=== PATIENT | female | born 1940 | race Caucasian/White ===

== ENCOUNTER → 2016-03-01 | Outpatient (CLI) | payer OTHER, MEDICARE ==
[~2016-03-01] MED LIST: ADVIN10/60 INH; CALC-20 PO; COEN1CAP37 PO; LACT1CAP6 PO; LZL125 PO; MULTTAB5 PO; ZCR80 PO; magnesium PO
--- NOTE | 2016-03-01 16:46 | DIAGNOSTIC IMAGING REPORT ---
CHEST 2 VIEWS ROUTINE HISTORY: R94.31 Abnormal electrocardiogram COMPARISON: Chest 05/26/2015. FINDINGS: A few linear densities at the left lung base favor scarring or subsegmental atelectasis. The lungs are otherwise clear. No pleural effusions. No pneumothorax. The heart is normal in size. IMPRESSION: No acute process. Electronically signed by: Frank Kamara M.D. 03/01/2016 4:44 PM Dictated Date/Time: 03/01/2016 4:42 PM
[2016-03-01 20:49] LABS: INFLUENZA B PCR Neg for Influ B (NEG)
[2016-03-01 21:03] LABS: INFLUENZA A PCR POS for Influ A (NEG)
== END | disposition home or self-care (01) ==
LOC: C.RAD1850 16:32
PROVIDERS: ATTEND Internal Medicine Pulmonary Disease
DX: R94.31 Abnormal electrocardiogram [ECG] [EKG] (principal)

== ENCOUNTER → 2016-03-29 | Outpatient (CLI) | payer OTHER, MEDICARE ==
--- NOTE | 2016-03-29 13:45 | MAMMOGRAPHY REPORT ---
BILATERAL DIGITAL SCREENING MAMMOGRAM TOMOSYNTHESIS WITH CAD: 03/29/2016 CLINICAL HISTORY: Routine screening. The patient reported to the technologist that she has had left breast pain for a year. TECHNIQUE: Breast tomosynthesis in addition to standard 2D mammography was performed. Current study was also evaluated with a Computer Aided Detection (CAD) system. COMPARISON: Comparison is made to exams dated: 03/23/2015 mammogram, 03/19/2014 mammogram, 12/16/2012 m ammogram, 11/22/2010 mammogram, 11/28/2011 mammogram, and 11/15/2009 mammogram - [facility]. BREAST COMPOSITION: There are scattered areas of fibroglandular density in both breasts. FINDINGS: No suspicious masses, calcifications, or areas of architectural distortion are noted in e ither breast. There has been no significant interval change compared to prior exams. Bilateral soheila gn appearing calcifications are not significantly changed. IMPRESSION: ACR BI-RADS CATEGORY 2: BENIGN There is no mammographic evidence of malignancy. A 1 year screening mammogram is recommended. Also recommend clinical follow-up for left breast pain. The patient will receive written notification of the results. Approximately 10% of breast cancers are not detected with mammography. A negative mammographic repor t should not delay biopsy if a clinically suggestive mass is present. Denise Aiken M.D. /:03/29/2016 12:36:58 Business Editor: Lupe Burns, [facility] letter sent: Normal 1/2 BI-RADS Code: ACR BI-RADS Category 2: Benign
== END | disposition home or self-care (01) ==
LOC: C.MAMM 09:32
PROVIDERS: ATTEND Obstetrics & Gynecology
DX: Z12.31 Encounter for screening mammogram for malignant neoplasm of breast (principal)

== ENCOUNTER → 2016-05-25 | Outpatient (CLI) | payer OTHER, MEDICARE ==
[2016-05-25 09:36] LABS: BASO % 1.1 %; BASO ABS # 0.04 K/uL (0-0.2); COMPLETE YES; EOS % 7.4 %; HEMATOCRIT 44.2 % (37-47); LYMPH % 35.5 %; MEAN CELL VOLUME 86.5 fL (80-100); MEAN CORPUSCULAR HEMOGLOBIN 28.8 pg (25-34); MEAN CORPUSCULAR HGB CONC 33.3 g/dl (32-36); MEAN PLATELET VOLUME 10.7 fL (7.4-10.4); MONO % 12.8 %; NEUT % 43.2 %; PLATELET COUNT 262 K/uL (130-400); RED BLOOD COUNT 5.11 M/uL (4.2-5.4); WHITE BLOOD COUNT 3.66 K/uL (4.8-10.8)
[2016-05-25 10:05] LABS: ALT/SGPT 27 U/L (12-78); AST/SGOT 24 U/L (15-37); BLOOD UREA NITROGEN 12 mg/dl (7-18); BUN/CREATININE RATIO 16.3 (10-20); CARBON DIOXIDE 33 mmol/L (21-32); CHLORIDE 105 mmol/L (98-107); CHOLESTEROL 165 mg/dl (0-200); CREATININE 0.73 mg/dl (0.60-1.20); GLUCOSE 87 mg/dl (70-99); SODIUM 142 mmol/L (136-145); TRIGLYCERIDES 88 mg/dl (0-150); VERY LOW DENSITY LIPOPROT CALC 18 mg/dl
[2016-05-25 10:12] LABS: URINE APPEARANCE CLOUDY (CLEAR); URINE BILIRUBIN NEG (NEG); URINE COLOR YELLOW; URINE EPITHELIAL CELL AUTO 20-30 /lpf (0-5); URINE NITRITE NEG (NEG); URINE SPECIFIC GRAVITY 1.016 (1.000-1.030); UROBILINOGEN NEG (NEG); ZZUR CULT IF INDIC CLEAN CATCH NO
[2016-05-25 10:15] LABS: CHOLESTEROL/HDL RATIO 3.3; HDL CHOLESTEROL 50 mg/dl; LDL CHOLESTEROL CALCULATED 97 mg/dl
[2016-05-25 10:25] LABS: MANUAL MICROSCOPIC REQUIRED? NO; REVIEW REQ? NO
[2016-05-25 10:26] LABS: CALCIUM 9.2 mg/dl (8.5-10.1)
[2016-05-25 10:57] LABS: ESTIMATED AVERAGE GLUCOSE 105 mg/dl; HA1C FLAG Normal (Normal)
--- NOTE | 2016-05-31 09:54 | CODING QUERY MEDICAL NECESSITY ---
CQSUPPORTING DIAGNOSIS NEEDED A supporting diagnosis is required for the test/procedure performed on this patient in order for us to be reimbursed by the patient's insurance. Please provide a supporting diagnosis for the following test/procedure listed below next to the test name along with your signature. *If there is no additional diagnosis for this patient that would support the following test/procedure please document that below next to the test/procedure. Test(s)/Procedure(s) that require a supporting diagnosis: DOS 05/25/16 VITAMIN D GLYCATED HEMOGLOBIN QUERY RETURNED WITH SIGNATURE BUT NO DIAGNOSIS-PLEASE SEND DIAGNOSIS AND SIGNATURE THANK YOU Provider Signature: Date: Thank you Jennifer [facility] Information Management Once completed, please kindly fax back to [phone] For questions please call [phone]
== END | disposition home or self-care (01) ==
LOC: C.LAB1850 07:30
PROVIDERS: ATTEND Internal Medicine
DX: E78.00 Pure hypercholesterolemia, unspecified (principal); E55.9 Vitamin D deficiency, unspecified; E74.39 Other disorders of intestinal carbohydrate absorption

== ENCOUNTER → 2016-06-20 | Outpatient (CLI) | payer OTHER, MEDICARE | END | disposition home or self-care (01) | LOC: C.PAPS 09:08 | PROVIDERS: ATTEND Obstetrics & Gynecology | DX: Z12.4 Encounter for screening for malignant neoplasm of cervix (principal) ==

== ENCOUNTER → 2016-09-14 | Outpatient (CLI) | payer OTHER, MEDICARE ==
[2016-09-14 15:40] LABS: URINE APPEARANCE CLOUDY (CLEAR); URINE BILIRUBIN NEG (NEG); URINE COLOR DK YELLOW; URINE NITRITE NEG (NEG); URINE PH 5.5 (4.5-7.5); URINE SPECIFIC GRAVITY 1.025 (1.000-1.030); UROBILINOGEN NEG (NEG)
[2016-09-14 15:46] LABS: MANUAL MICROSCOPIC REQUIRED? NO; REVIEW REQ? YES
== END | disposition home or self-care (01) ==
LOC: C.LAB 14:56
PROVIDERS: ATTEND Internal Medicine
DX: R39.9 Unspecified symptoms and signs involving the genitourinary system (principal)

== ENCOUNTER → 2016-09-18 | Outpatient (CLI) | payer OTHER, MEDICARE ==
[2016-09-18 16:43] LABS: URINE APPEARANCE CLEAR (CLEAR); URINE BILIRUBIN NEG (NEG); URINE COLOR YELLOW; URINE NITRITE NEG (NEG); URINE PH 6.5 (4.5-7.5); URINE SPECIFIC GRAVITY 1.017 (1.000-1.030); UROBILINOGEN NEG (NEG); ZZUR CULT IF INDIC CLEAN CATCH NO
[2016-09-18 16:49] LABS: MANUAL MICROSCOPIC REQUIRED? NO; REVIEW REQ? NO
== END | disposition home or self-care (01) ==
LOC: C.LAB 15:01
PROVIDERS: ATTEND Internal Medicine
DX: R32 Unspecified urinary incontinence (principal)

== ENCOUNTER → 2016-10-01 | Outpatient (CLI) | payer OTHER, MEDICARE ==
[2016-10-01 14:37] LABS: BASO % 0.7 %; BASO ABS # 0.04 K/uL (0-0.2); COMPLETE YES; EOS % 7.8 %; HEMATOCRIT 42.5 % (37-47); IG% 0.2 %; LYMPH % 30.9 %; LYMPH ABS # 1.83 K/uL (1.2-3.4); MEAN CELL VOLUME 85.9 fL (80-100); MEAN CORPUSCULAR HEMOGLOBIN 28.1 pg (25-34); MEAN CORPUSCULAR HGB CONC 32.7 g/dl (32-36); MEAN PLATELET VOLUME 9.9 fL (7.4-10.4); MONO % 8.1 %; NEUT % 52.3 %; PLATELET COUNT 334 K/uL (130-400); RED BLOOD COUNT 4.95 M/uL (4.2-5.4); WHITE BLOOD COUNT 5.92 K/uL (4.8-10.8)
[2016-10-01 14:57] LABS: ALT/SGPT 30 U/L (12-78); AST/SGOT 26 U/L (15-37); BLOOD UREA NITROGEN 10 mg/dl (7-18); BUN/CREATININE RATIO 15.4 (10-20); CALCIUM 9.6 mg/dl (8.5-10.1); CARBON DIOXIDE 31 mmol/L (21-32); CHLORIDE 105 mmol/L (98-107); CREATININE 0.68 mg/dl (0.60-1.20); GLUCOSE 95 mg/dl (70-99); POTASSIUM 3.3 mmol/L (3.5-5.1); SODIUM 139 mmol/L (136-145)
[2016-10-01 15:00] LABS: RHEUMATOID FACTOR < 10.0 U/mL (0-15)
== END | disposition home or self-care (01) ==
LOC: C.LAB1850 13:12
PROVIDERS: ATTEND Physician Assistant
DX: M25.50 Pain in unspecified joint (principal)

== ENCOUNTER → 2017-02-19 | Outpatient (CLI) | payer OTHER, MEDICARE ==
--- NOTE | 2017-02-19 12:08 | DIAGNOSTIC IMAGING REPORT ---
CHEST 2 VIEWS ROUTINE CLINICAL HISTORY: R05 [id number] dyspnea COMPARISON STUDY: 03/01/2016 FINDINGS: Mild emphysematous change. Mild chronic interstitial change throughout both hemithoraces. No focal infiltrate. No significant cardiac enlargement. IMPRESSION: Chronic change. No acute process. The above report was generated using voice recognition software. It may contain grammatical, syntax or spelling errors. Electronically signed by: Alonzo Bee M.D. 02/19/2017 12:07 PM Dictated Date/Time: 02/19/2017 12:06 PM
== END | disposition home or self-care (01) ==
LOC: C.RAD 11:27
PROVIDERS: ATTEND Physician Assistant
DX: R05 Cough (principal)

== ENCOUNTER → 2017-03-21 | Outpatient (CLI) | payer OTHER, MEDICARE | END | disposition home or self-care (01) | LOC: C.PATHSPEC 17:35 | PROVIDERS: ATTEND Ophthalmology | DX: L82.1 Other seborrheic keratosis (principal) ==

== ENCOUNTER → 2017-04-03 | Outpatient (CLI) | payer OTHER, MEDICARE ==
--- NOTE | 2017-04-03 15:14 | MAMMOGRAPHY REPORT ---
BILATERAL DIGITAL SCREENING MAMMOGRAM TOMOSYNTHESIS WITH CAD: 04/03/2017 CLINICAL HISTORY: Routine screening. TECHNIQUE: Breast tomosynthesis in addition to standard 2D mammography was performed. Current study was also evaluated with a Computer Aided Detection (CAD) system. COMPARISON: Comparison is made to exams dated: 03/29/2016 mammogram, 03/23/2015 mammogram, 03/19/2014 ma mmogram, 12/16/2012 mammogram, 11/28/2011 mammogram, and 11/22/2010 mammogram - [facility]. BREAST COMPOSITION: There are scattered areas of fibroglandular density in both breasts. FINDINGS: The parenchymal pattern is unchanged. No developing mass, architectural distortion or clus ter of suspicious microcalcifications is seen in either breast. IMPRESSION: ACR BI-RADS CATEGORY 2: BENIGN There is no mammographic evidence of malignancy. A 1 year screening mammogram is recommended. The pa tient will receive written notification of the results. Approximately 10% of breast cancers are not detected with mammography. A negative mammographic report should not delay biopsy if a clinically suggestive mass is present. Naomi Dover M.D. ay/:04/03/2017 09:45:31 Checker In: Lupe BASURTO(Anabella)(Terry), [facility] letter sent: Normal 1/2 BI-RADS Code: ACR BI-RADS Category 2: Benign
== END | disposition home or self-care (01) ==
LOC: C.MAMM 08:55
PROVIDERS: ATTEND Obstetrics & Gynecology
DX: Z12.31 Encounter for screening mammogram for malignant neoplasm of breast (principal)

== ENCOUNTER → 2017-06-03 | Outpatient (CLI) | payer OTHER, MEDICARE ==
--- NOTE | 2017-06-03 12:59 | DIAGNOSTIC IMAGING REPORT ---
RIGHT HIP 2 VIEWS CLINICAL HISTORY: Right hip pain. FINDINGS: AP and frog-leg views of the right hip are compared to study dated 01/28/2012. The skeletal structures are osteopenic. No fracture is identified in the right hip or the imaged right hemipelvis. Mild to moderate degenerative joint space narrowing is seen in the right hip. Enthesophytes arise from the greater trochanter of the right femur and the right anterior superior iliac spine. The overlying soft tissues are within normal limits. No bowel obstruction is identified. Suture material is partial seen projecting over the left hemipelvis. IMPRESSION: Osteopenia and degenerative change as above. No acute bony abnormality is identified in the right hip. Electronically signed by: Nirmal Lora M.D. 06/03/2017 12:58 PM Dictated Date/Time: 06/03/2017 12:56 PM
== END | disposition home or self-care (01) ==
LOC: C.RAD1850 12:23
PROVIDERS: ATTEND Physician Assistant
DX: M85.88 Other specified disorders of bone density and structure, other site (principal)

== ENCOUNTER → 2017-06-18 | Outpatient (CLI) | payer OTHER, MEDICARE ==
[2017-06-18 09:36] LABS: BASO % 1.2 %; BASO ABS # 0.07 K/uL (0-0.2); EOS % 7.4 %; EOS ABS # 0.43 K/uL (0-0.5); HEMATOCRIT 40.1 % (37-47); HEMOGLOBIN 13.7 g/dL (12.0-16.0); IG# 0.01 K/uL (0.00-0.02); LYMPH % 24.3 %; LYMPH ABS # 1.42 K/uL (1.2-3.4); MEAN CORPUSCULAR HGB CONC 34.2 g/dl (32-36); MEAN PLATELET VOLUME 9.7 fL (7.4-10.4); MONO % 9.6 %; MONO ABS # 0.56 K/uL (0.11-0.59); NEUT % 57.3 %; NEUT ABS # 3.36 K/uL (1.4-6.5); PLATELET COUNT 393 K/uL (130-400); RED CELL DISTRIBUTION WIDTH CV 13.2 % (11.5-14.5); RED CELL DISTRIBUTION WIDTH SD 41.3 fL (36.4-46.3); WHITE BLOOD COUNT 5.85 K/uL (4.8-10.8)
[2017-06-18 09:58] LABS: ALT/SGPT 23 U/L (12-78); AST/SGOT 26 U/L (15-37); BLOOD UREA NITROGEN 14 mg/dl (7-18); CALCIUM 8.6 mg/dl (8.5-10.1); CARBON DIOXIDE 30 mmol/L (21-32); CHOLESTEROL 138 mg/dl (0-200); CREATININE 0.73 mg/dl (0.60-1.20); GLUCOSE 98 mg/dl (70-99); POTASSIUM 4.1 mmol/L (3.5-5.1); SODIUM 139 mmol/L (136-145)
[2017-06-18 10:08] LABS: LDL CHOLESTEROL CALCULATED 72 mg/dl
[2017-06-18 10:10] LABS: HEMOGLOBIN A1C 5.5 % (4.5-5.6)
== END | disposition home or self-care (01) ==
LOC: C.LAB1850 08:16
PROVIDERS: ATTEND Internal Medicine
DX: E78.00 Pure hypercholesterolemia, unspecified (principal)

== ENCOUNTER → 2017-07-01 | Outpatient (CLI) | payer OTHER, MEDICARE ==
--- NOTE | 2017-07-01 14:29 | DIAGNOSTIC IMAGING REPORT ---
CT SCAN OF THE PARANASAL SINUSES CLINICAL HISTORY: Chronic bronchitis. COMPARISON STUDY: Radiographs of the paranasal sinuses dated 05/26/2015. TECHNIQUE: High-resolution CT scan of the paranasal sinuses is performed. Images are reviewed in the axial, sagittal, and coronal planes. IV contrast was not administered for this examination. A dose lowering technique was utilized adhering to the principles of ALARA. CT DOSE: 269.19 mGycm FINDINGS: Maxillary antra: Clear bilaterally. Anterior ethmoid sinuses: Trace mucosal thickening is seen on the left, clear on the right. Posterior ethmoid sinuses: Trace mucosal thickening is seen on the left. Clear on the right. Sphenoid sinuses: Trace mucosal thickening is seen on the left. Clear on the right. Frontal sinuses: Trace mucosal thickening is seen on the right. Clear on the left. Ostiomeatal complexes: Patent bilaterally. There are bilateral Joanne cells. Frontoethmoidal and sphenoethmoidal recesses: Patent bilaterally. Carotid arteries: The carotid arteries are covered and without septal attachments. Ethmoid roofs: There is asymmetric elevation of the left ethmoid roof as compared to the right. Nasal turbinates: There is burt bullosa of the right middle nasal turbinate. Nasal septum: There is left lower deviation of the bony nasal septum. Optic nerves: Covered. Orbits: The bony orbits are intact. Orbital contents are normal in appearance noting bilateral ocular lens implants. Calvarium: The skeletal structures are osteopenic. The imaged calvarium is normal in appearance. Advanced degenerative change is seen in the temporomandibular joints. Mastoid air cells: Well pneumatized. Brain parenchyma: Partially visualized brain parenchyma is within normal limits. IMPRESSION: Minimal paranasal sinus disease. See discussion. Electronically signed by: Nirmal Lora M.D. 07/01/2017 2:28 PM Dictated Date/Time: 07/01/2017 2:24 PM
--- NOTE | 2017-07-01 14:33 | DIAGNOSTIC IMAGING REPORT ---
CT SCAN OF THE CHEST WITHOUT IV CONTRAST CLINICAL HISTORY: Chronic bronchitis. COMPARISON STUDY: Chest CT scans dated 10/25/2015 and 02/25/2011. TECHNIQUE: CT scan of the thorax was performed from the thoracic inlet to the upper abdomen. Images are reviewed in the axial, sagittal, and coronal planes. IV contrast was not administered for this examination as per the referring clinician. A dose lowering technique was utilized adhering to the principles of ALARA. The examination is degraded by streak artifact from the arms which could not be elevated above the chest. CT DOSE: 544.52 mGycm FINDINGS: Thyroid: Imaged portions of the thyroid gland are normal in size and attenuation. Thoracic aorta: There is mild atherosclerotic calcification of the thoracic aorta, which is normal in caliber and demonstrates standard 3-vessel arch anatomy. Heart: The heart is normal in size and without pericardial effusion. There are coronary artery calcifications. Lungs and pleural spaces: There is biapical scarring. No airspace consolidation or pleural effusion is identified. The trachea and central airways Are clear. Mediastinum: There is no mediastinal lymphadenopathy. Kisha: Not well assessed without IV contrast. Axillae: There is no axillary lymphadenopathy. Upper abdomen: Partially visualized upper abdominal viscera is within normal limits. Skeletal structures: The skeletal structures are osteopenic. Degenerative change is noted throughout the thoracic spine. A pectus deformity is incidentally noted. Advanced arthritic change is seen in the shoulders. No lytic or blastic bony lesions are seen. IMPRESSION: The lungs are clear. Electronically signed by: Nirmal Lora M.D. 07/01/2017 2:32 PM Dictated Date/Time: 07/01/2017 2:28 PM
== END | disposition home or self-care (01) ==
LOC: C.CTS 14:08
PROVIDERS: ATTEND Internal Medicine Critical Care Medicine
DX: J42 Unspecified chronic bronchitis (principal); J32.8 Other chronic sinusitis

== ENCOUNTER 2019-11-06 17:46 | Inpatient (IN) ==
[2019-11-06] MEDS ORDERED: KETOROLAC TROMETHAMINE 15 MG/ML VIAL IV STA (18:10)
[2019-11-06] MEDS ORDERED: SODIUM CHLORIDE 0.9% 1000ML 1,000 ML IV ONE (18:10)
--- NOTE | 2019-11-06 18:17 | Emergency Department Note ---
Impression & Plan Acute UTI, Leukocytosis, Failure of outpatient treatment, Body aches ED Provider Note NAME: JAMES YUNG AGE: 79 SEX: F : 1940 ARRIVES VIA: Walk-In INFORMANT: [Patient] ED PROVIDER(S): [Nirmal Marquis MD] CHIEF COMPLAINT: Abnormal labs HISTORY OF PRESENT ILLNESS: The patient is a 79-year-old female presents to the ER with abnormal laboratory values. 1.5 weeks ago, the patient had urinary symptoms and was placed on amoxicillin. Her culture grew out enterococcus. Based on sensitivities, the amoxicillin should have been effective. The patient was feeling somewhat better towards the end of her course of antibiotics but now in the last 24 to 48 hours, she feels worse. She has had all over body aches, her pain is a 10/10. She has had shakes, chills, sweats and she thinks she had a fever. She had some nausea but no vomiting. Her back hurts. The patient did take some Advil which helped some of her symptoms. The patient states that she saw her doctor today, she had laboratory work done that showed a white blood cell of 20,000, she was sent to the ED for IV antibiotic therapy and potential hospitalization. REVIEW OF SYSTEMS: See HPI for pertinent positives and negatives. A total of ten systems were reviewed and were otherwise negative. PMHx/PSHx: See Below SOCIAL HISTORY: See Below. PHYSICAL EXAM: GENERAL: Patient is in no acute distress. HEENT: No acute trauma, normocephalic atraumatic, mucous membranes moist, no nasal congestion, no scleral icterus. NECK: No stridor, no adenopathy, no meningismus, trachea is midline. LUNGS: Clear to auscultation bilaterally, no wheeze, no rhonchi, breath sounds equal. HEART: Without murmurs gallops or rubs, regular rate and rhythm. ABDOMEN: Soft, mildly tender in the left lower quadrant, bowel sounds positive, no hernias, no peritonitis. EXTREMITIES: No cyanosis or edema, full range of motion of all the joints without pain or difficulty, no signs for acute trauma. NEUROLOGIC: Oriented x 3, no acute motor or sensory deficits, no focal weakness. SKIN: No rash, no jaundice, no diaphoresis. Back: No flank discomfort to percussion. DIFFERENTIAL DIAGNOSIS: Sepsis, UTI, pneumonia, metabolic, electrolyte abnormalities, pyelonephritis, failed outpatient therapy, cardiac sources, intracerebral event, toxicologic, neurologic, as well as other pathologies. EMERGENCY DEPARTMENT COURSE/PROCEDURES: MEDICAL DECISION MAKING: Lab work from earlier today showed a white blood cell count of 20,000. There was no concerning anemia. There was a normal platelet count. Renal panel testing did not show renal failure or significant electrolyte abnormality. Urinalysis showed findings consistent with infection, nitrites were positive, there was 4+ bacteria. Urine culture is pending. Laboratory work done during this ED visit showed a normal liver panel, lactic acid level was not elevated making sepsis less likely. Abdominal and pelvis CT showed diverticuli, there was no diverticulitis, no abscess. Blood cultures are pending. On exam, the patient did not seem toxic. She was not febrile by our testing. She was slightly tender in the left lower quadrant on exam. The patient received IV saline, IV Zosyn, IV Toradol. She is resting comfortably. The Zosyn was given as this antibiotic should cover her last few urine cultures. The patient has failed outpatient treatment for her UTI. She now has a white blood cell count of 20,000. She was feeling so poorly today that she had to be helped by her to the bathroom. I do think IV antibiotic therapy is warranted. A hospital stay I believe is warranted. I did speak to the patient, I talked to case management. The on-call hospitalist was consulted. I do believe her UTI is responsible for her symptoms. Past Med/Surg History Medical History Actinic keratosis History of basal cell carcinoma Hx of herpes zoster Menopausal symptoms Osteoarthritis Rotator cuff dysfunction Senile lentigo Trigger finger, left Varicose veins of anus or rectum Varicose veins of bilateral lower extremities with other complications Surgical History H/O: hysterectomy History of knee replacement Family History Father Deafness Bladder cancer Mother Hypertension Social History Smoking Status: Never smoker Age Started Using Tobacco: 23; Age Quit Using Tobacco: 27; Hx Alcohol Use: Yes Hx Substance Use: No Preferred Language: Indonesian Communication Ability: Effective Feels Safe at Home: Yes Allergies Allergies Allergy/AdvReac Type Severity Reaction Status Date / Time acetaminophen Allergy Severe Delirium Verified 08/31/19 13:59 azithromycin Allergy Severe Itching Verified 08/31/19 13:59 [From Zithromax Z-Oleg] oxycodone Allergy Severe Delirium Verified 08/31/19 13:59 meperidine AdvReac Severe DIFFICULTY Verified 08/31/19 13:59 WAKING ciprofloxacin AdvReac Arthalgia, Verified 08/31/19 13:59 myalgia hydrocodone AdvReac Anxiety Verified 08/31/19 13:59 Home Meds Home Medications Medication Instructions Recorded Confirmed calcium citrate 315 mg-vitamin D3 1 tab PO DAILY tab 10/03/18 10/06/19 5 mcg (200 unit) tablet hegtmleypthr-ooziqdbc-tkwive 1 tab PO DAILY 03/02/19 10/06/19 diltiazem HCl 180 mg 180 mg PO DAILY 08/04/19 10/06/19 capsule,extended release 24 hr ibuprofen 2 ea PO DAILY 08/04/19 10/06/19 fluticasone propionate 2 sprays INTNAS PRN 08/31/19 08/31/19 slfyt-tmeum-wnsgltb-pramoxine TOP PRN 08/31/19 08/31/19 Previous Rx's Medication Instructions Recorded tolterodine 4 mg capsule,extended 4 mg PO DAILY #90 cap 02/09/19 release 24 hr indapamide 1.25 mg tablet 1.25 mg PO DAILY #90 tab 03/02/19 simvastatin 80 mg tablet 80 mg PO HS #90 tab 03/02/19 albuterol sulfate 90 mcg/actuation 2 puffs INHALATION .COMPLEX PRN 08/04/19 aerosol inhaler #18 gm clotrimazole 1 % vaginal cream 1 appl PV .Qhs #45 gm 08/14/19 amoxicillin 500 mg capsule 500 mg PO Q8H #21 cap 10/28/19 Results & Data (ED) Vital Signs Vital Signs - 24 hr 11/06/19 17:51 Temperature 36.9 C Temperature Source Oral Pulse Rate 102 H Respiratory Rate 20 Respiratory Depth Normal Blood Pressure 118/64 Blood Pressure Mean 82 Blood Pressure Position Sitting Pulse Oximetry 96 Sepsis Recent Fever Within 48 Hours No Sepsis New/Unexplained Change in Mental Status No Sepsis Action Taken by Nursing No Action Required Home Medications Current Medication List: was personally reviewed by me Laboratory Data Attestation: I reviewed the patient's lab results. Lab Results 11/06/19 11/06/19 Range/Units 18:15 18:41 Lactate 1.4 (0.4-2.0) mmol/L Magnesium 1.9 (1.8-2.4) mg/dl Total Bilirubin 0.6 (0.2-1) mg/dl Direct Bilirubin 0.2 (0-0.2) mg/dl AST 34 (15-37) U/L ALT 33 (12-78) U/L Alkaline Phosphatase 52 (45-117) U/L Total Protein 7.4 (6.4-8.2) gm/dl Albumin 3.0 L (3.4-5.0) gm/dl Administered Medications Discontinued Medications Sodium Chloride (Nss 1000ml) 1,000 mls @ 999 mls/hr IV .Q1H1M ONE Stop: 11/06/19 19:10 Last Admin: 11/06/19 18:58 Dose: 999 mls/hr Documented by: [id number] Piperacillin Sod/Tazobactam Sod (Zosyn) 4.5 gm in 120 mls @ 240 mls/hr IV NOW ONE Stop: 11/06/19 19:04 Last Admin: 11/06/19 18:58 Dose: 240 mls/hr Documented by: [id number] Ioversol (Ioversol 100ml) 92 ml IV ONCE ONE Stop: 11/06/19 18:48 Last Admin: 11/06/19 18:47 Dose: 92 ml Documented by: [id number] Ketorolac Tromethamine (Ketorolac Tromethamine 15 Mg/Ml Vial) 15 mg IV NOW STA Stop: 11/06/19 18:11 Last Admin: 11/06/19 18:58 Dose: 15 mg Documented by: [id number] Imaging Data Radiologist's Impression: CT OF THE ABDOMEN AND PELVIS WITH CONTRAST CLINICAL HISTORY: Leukocytosis. Recurrent urinary tract infections. Possible diverticulitis. COMPARISON STUDY: CT of the abdomen and pelvis July 21, 2017. TECHNIQUE: Following IV administration of 92 mL of Optiray-320, axial images of the abdomen and pelvis were obtained from the lung bases to the proximal femurs. Images were reviewed in the axial, sagittal, and coronal planes. IV contrast was administered without complication. Automated exposure control was utilized for the study. A dose lowering technique was utilized adhering to the principles of ALARA. CT DOSE: 500.95 mGy.cm FINDINGS: Lung bases are unremarkable. There is a pectus excavatum deformity. No pneumatosis, free air or portal venous gas is present. The liver, spleen, adrenal glands, kidneys and pancreas are unremarkable. There is no biliary or pancreatic ductal dilatation. There is no hydronephrosis or hydroureter. No bowel wall thickening is noted. Note is made of sigmoid diverticulosis without evidence for acute diverticulitis. Major vasculature is patent. There is no lymphadenopathy. No ascites is present. IMPRESSION: 1. No acute process within the abdomen or pelvis. 2. Colonic diverticulosis without evidence for acute diverticulitis. 3. No bowel obstruction. No bowel wall thickening. Blood Pressure Blood Pressure Findings: Normal blood pressure Discharge Plan Visit Data Chief Complaint: Abnormal Labs/Diagnostic Testing Stated Complaint: LAB WORK ABNORMAL ED Provider: Nirmal Marquis Discharge Problem: Acute UTI, Leukocytosis, Failure of outpatient treatment, Body aches Patient Disposition: Admitted As Inpatient Condition: Good Forms Stand Alone Forms: [facility] Prescriptions Prescriptions: No Action tolterodine [Detrol LA] 4 mg capsule,extended release 24hr 4 mg PO DAILY Qty: 90 RF: 3 indapamide 1.25 mg tablet 1.25 mg PO DAILY Qty: 90 RF: 2 amoxicillin 500 mg capsule 500 mg PO Q8H Qty: 21 RF: 0 calcium citrate-vitamin D3 [Calcium Citrate + D] 315-200 mg-unit tablet 1 tab PO DAILY RF: 0 ivrbr-hovts-fjjfpwg-pramoxine TOP PRNRF: 0 fluticasone propionate 2 sprays INTNAS PRNRF: 0 clotrimazole 1 % cream 1 appl PV .Qhs Qty: 45 RF: 0 diltiazem HCl 180 mg capsule,extended release 24hr 180 mg PO DAILY RF: 0 ibuprofen 2 ea PO DAILY RF: 0 albuterol sulfate 90 mcg/actuation HFA aerosol inhaler 2 puffs inhalation .COMPLEX PRN (Reason: shortness of breath or wheezing) Qty: 18 RF: 0 bnuxmkkjbtbr-kktfrxvo-jsttka 1 tab PO DAILY RF: 0 simvastatin 80 mg tablet 80 mg PO HS Qty: 90 RF: 3 Referrals Referrals: Joshua Cuevas MD [Primary Care Provider] - Discharge Problem: Leukocytosis Qualifiers: Leukocytosis type: unspecified Qualified Code(s): D72.829 - Elevated white blood cell count, unspecified
[2019-11-06] MEDS ORDERED: PIPERACILL/TAZOBAC CONSULT ACTIVE PRN (18:35)
[2019-11-06] MEDS ORDERED: PIPERACILLIN/TAZOBACTAM 4.5 GM/120 ML BAG IV ONE (18:35)
[2019-11-06] MEDS ORDERED: IOVERSOL 100ml IV ONE (18:47)
[2019-11-06 18:54] LABS: Bilirubin Direct 0.2 mg/dl (0-0.2); Bilirubin,Total 0.6 mg/dl (0.2-1); Magnesium 1.9 mg/dl (1.8-2.4); Total Protein 7.4 gm/dl (6.4-8.2)
--- NOTE | 2019-11-06 19:05 | CT Scan Report ---
CT OF THE ABDOMEN AND PELVIS WITH CONTRAST CLINICAL HISTORY: Leukocytosis. Recurrent urinary tract infections. Possible diverticulitis. COMPARISON STUDY: CT of the abdomen and pelvis July 21, 2017. TECHNIQUE: Following IV administration of 92 mL of Optiray-320, axial images of the abdomen and pelvi s were obtained from the lung bases to the proximal femurs. Images were reviewed in the axial, sagitt al, and coronal planes. IV contrast was administered without complication. Automated exposure contro l was utilized for the study. A dose lowering technique was utilized adhering to the principles of A GUILLERMO. CT DOSE: 500.95 mGy.cm FINDINGS: Lung bases are unremarkable. There is a pectus excavatum deformity. No pneumatosis, free ai r or portal venous gas is present. The liver, spleen, adrenal glands, kidneys and pancreas are unrema rkable. There is no biliary or pancreatic ductal dilatation. There is no hydronephrosis or hydrourete r. No bowel wall thickening is noted. Note is made of sigmoid diverticulosis without evidence for acu te diverticulitis. Major vasculature is patent. There is no lymphadenopathy. No ascites is present. IMPRESSION: 1. No acute process within the abdomen or pelvis. 2. Colonic diverticulosis without evidence for acute diverticulitis. 3. No bowel obstruction. No bowel wall thickening. ACT 112: Negative or not required by law. Electronically signed by: Abel Leach M.D. 11/06/2019 7:04 PM
--- NOTE | 2019-11-06 19:55 | History & Physical Report ---
Date of Service November 06, 2019 Assessment & Plan (1) Acute UTI: Patient with history of recurrent UTIs, most recent urine culture from 10/26/19 positive for >100,000 CFU enterococcus faecalis. Oraganism is wesley- sensitive. She completed a 7 day course of Amoxicillin with recurrence of sym ptoms. Presently afebrile, HD stable, NAD. Patient with significant dysuria as well as urinary hesitancy and states that sometimes she needs to strain to fully empty her bladder. -Follow cultures sent from ER -Vancomycin -Pyridium PRN -Continue Tolterodine -Patient may benefit from outpatient referral to Urogynecology to asses for possible organ prolapse or other mechanisms that may be causing incomplete bladder emptying? Present on Admission?: Yes (2) Leukocytosis: Patient afebrile at present. No evidence of sepsis. -Vancomycin as above -Follow cultures -Repeat CBC in AM Present on Admission?: Yes (3) Hypertension: Blood pressure stable at present, 118/64 -Continue indapamide -Continue Diltiazem -Continue to monitor Present on Admission?: Yes (4) Hypercholesterolemia: Chronic. -Continue Simvastatin 80mg po daily Present on Admission?: Yes (5) Intrinsic asthma: Stable. No SOB/wheeze -Continue Albuterol as needed F/E/N - NSS at 80mL/hr x 2 liters, monitor electrolytes and replete as needed, regular diet as tolerated Ppx - Lovenox for DVT prophylaxis Code - Full per discussion with patient Dispo - Admit to medical floor Present on Admission?: Yes History of Present Illness Chief Complaint: rigors, leukocytosis Primary Care Provider: Joshua Cuevas MD Stefanie Ponce is a 79yo C female with history of HTN, HLP and Asthma presenting with UTI, chills/rigors and leukocytosis. Patient with history of recurrent UTI. She developed dysuria approximately 1.5 weeks ago and was seen by her PCP. UA suggestive of infection, culture positive for Enterococcus faecalis. She was treated with Amoxicillin 500mg po q 8 hours x 7 days. She completed the course on Saturday11/03/19. She felt well on 11/03 after completing her antibiotics, however she began to feel ill yesterday. She had headache, myalgias, shaking chills and dysuria. She states that her hands, feet and body felt tight and swollen. This morning she had subjective fevers, shaking chills and felt "woozy". She also reports feeling itchy, had some nonspecific chest tightness and a deep cough. She called her PCP and had some blood work sent. She was instructed to come to the ER for leukocytosis and persistent symptoms. Patient reports two similar episodes with prior infections. On arrival to the ER she was found to be afebrile, mildly tachycardic with EN=226, NAD ER Course: Toradol, Zosyn Allergies Allergy/AdvReac Type Severity Reaction Status Date / Time acetaminophen Allergy Severe Delirium Verified 11/06/19 19:49 azithromycin Allergy Severe Itching Verified 11/06/19 19:49 [From Zithromax Z-Oleg] oxycodone Allergy Severe Delirium Verified 11/06/19 19:49 meperidine AdvReac Severe DIFFICULTY Verified 11/06/19 19:49 WAKING ciprofloxacin AdvReac Arthalgia, Verified 11/06/19 19:49 myalgia hydrocodone AdvReac Anxiety Verified 11/06/19 19:49 Home Medications Home Medications Medication Instructions Recorded Confirmed Type calcium citrate 315 mg-vitamin D3 1 tab PO DAILY tab 10/03/18 11/06/19 History 5 mcg (200 unit) tablet tolterodine 4 mg capsule,extended 4 mg PO DAILY #90 cap 02/09/19 11/06/19 Rx release 24 hr indapamide 1.25 mg tablet 1.25 mg PO DAILY #90 tab 03/02/19 11/06/19 Rx simvastatin 80 mg tablet 80 mg PO HS #90 tab 03/02/19 11/06/19 Rx albuterol sulfate 90 mcg/actuation 2 puffs INHALATION .COMPLEX PRN 08/04/19 11/06/19 Rx aerosol inhaler #18 gm diltiazem HCl 180 mg 180 mg PO DAILY 08/04/19 11/06/19 History capsule,extended release 24 hr amoxicillin 500 mg capsule 500 mg PO Q8H #21 cap 10/28/19 11/06/19 Rx Cranberry Gummy (Otc) 1 dose PO DAILY 11/06/19 11/06/19 History cholecalciferol (vitamin D3) 25 mcg PO DAILY 11/06/19 11/06/19 History [Vitamin D3] fluticasone propionate [Flonase 1 spray INTRANASAL BID PRN 11/06/19 11/06/19 History Allergy Relief] multivitamin 1 tab PO DAILY 11/06/19 11/06/19 History Past Med/Surg History Medical History Actinic keratosis History of basal cell carcinoma Hx of herpes zoster Menopausal symptoms Osteoarthritis Rotator cuff dysfunction Senile lentigo Trigger finger, left Varicose veins of anus or rectum Varicose veins of bilateral lower extremities with other complications Surgical History H/O: hysterectomy History of knee replacement Family History Father Deafness Bladder cancer Mother Hypertension Social History Smoking Status: Never smoker Age Started Using Tobacco: 23; Age Quit Using Tobacco: 27; Hx Alcohol Use: Yes Hx Substance Use: No Preferred Language: Kenyan Communication Ability: Effective Feels Safe at Home: Yes Review of Systems Review of Systems: All systems reviewed & are unremarkable except as noted in HPI & below Physical Exam Physical Exam: General: patient resting comfortably, NAD, non-toxic in appearance, AA&O x 4 Skin: warm, dry, intact, no rashes or lesions, redness on anterior chest from patient scratching HEENT: NC/AT, PERRL, EOMI, anicteric sclera, conjunctiva without injection, external ear normal to inspection and nontender, nares patent, dry mucus membranes, dentition intact, no oropharyngeal lesions, neck supple, trachea midline, no LAD, no thyromegaly, no JVD Heart: +S1/S2, regular, no m/r/g Lungs: equal air entry bilaterally, no rales/rhonchi/wheezes, + deep cough twice during my encounter Abd: +BS, soft, NT/ND, no masses/organomegaly/ascites Ext: warm, 2+ pulses in UE/LE bilaterally, no clubbing/cyanosis or edema, +burning with urination, +urinary hesitancy and straining Neuro: nonfocal, patient AA&O x 4, speech intact, no facial droop, moving all extremities on command with equal strength 5/5 Results & Data Results & Data ([facility]) Vital Signs (Past 12 Hours) Vital Signs Temp Pulse Resp BP Pulse Ox 11/06/19 17:51 36.9 C 102 H 20 118/64 96 Laboratory Results Lab Results 11/06/19 11/06/19 11/06/19 Range/Units 18:15 18:41 19:58 Lactate 1.4 (0.4-2.0) mmol/L Magnesium 1.9 (1.8-2.4) mg/dl Total Bilirubin 0.6 (0.2-1) mg/dl Direct Bilirubin 0.2 (0-0.2) mg/dl AST 34 (15-37) U/L ALT 33 (12-78) U/L Alkaline Phosphatase 52 (45-117) U/L Total Protein 7.4 (6.4-8.2) gm/dl Albumin 3.0 L (3.4-5.0) gm/dl COVID-19 Eval Order Covid19 Done at [facility] COVID-19 PCR (Negative) 11/06/19 Range/Units 19:58 Lactate (0.4-2.0) mmol/L Magnesium (1.8-2.4) mg/dl Total Bilirubin (0.2-1) mg/dl Direct Bilirubin (0-0.2) mg/dl AST (15-37) U/L ALT (12-78) U/L Alkaline Phosphatase (45-117) U/L Total Protein (6.4-8.2) gm/dl Albumin (3.4-5.0) gm/dl COVID-19 Eval Order COVID-19 PCR NEGATIVE (Negative) Diagnostic Findings CT OF THE ABDOMEN AND PELVIS WITH CONTRAST CLINICAL HISTORY: Leukocytosis. Recurrent urinary tract infections. Possible diverticulitis. COMPARISON STUDY: CT of the abdomen and pelvis July 21, 2017. TECHNIQUE: Following IV administration of 92 mL of Optiray-320, axial images of the abdomen and pelvis were obtained from the lung bases to the proximal femurs. Images were reviewed in the axial, sagittal, and coronal planes. IV contrast was administered without complication. Automated exposure control was utilized for the study. A dose lowering technique was utilized adhering to the principles of ALARA. CT DOSE: 500.95 mGy.cm FINDINGS: Lung bases are unremarkable. There is a pectus excavatum deformity. No pneumatosis, free air or portal venous gas is present. The liver, spleen, adrenal glands, kidneys and pancreas are unremarkable. There is no biliary or pancreatic ductal dilatation. There is no hydronephrosis or hydroureter. No bowel wall thickening is noted. Note is made of sigmoid diverticulosis without evidence for acute diverticulitis. Major vasculature is patent. There is no lymphadenopathy. No ascites is present. IMPRESSION: 1. No acute process within the abdomen or pelvis. 2. Colonic diverticulosis without evidence for acute diverticulitis. 3. No bowel obstruction. No bowel wall thickening. ACT 112: Negative or not required by law. Electronically signed by: Abel Leach M.D. 11/06/2019 7:04 PM Dictated: 11/06/191855 Transcribed: 11/06/191855 Code Status & VTE Plan Code Status FULL VTE Prophylaxis Plan VTE Prophylaxis will be ordered: Yes PG Care Time/CCT Total # of Minutes Spent Total Time Spent with Patient: Total time spent is greater than 50% in coordination of care (as documented) at patient's floor/unit and/or counseling patient: Coding Level of Care Code 20674 Initial Inpt Care Lvl 3 Diagnoses Acute UTI N39.0 Leukocytosis D72.829 Leukocytosis type: unspecified Hypertension I10 Hypertension type: essential hypertension Hypercholesterolemia E78.00 Intrinsic asthma J45.909 (1) Leukocytosis Leukocytosis type: unspecified Qualified Code(s): D72.829 - Elevated white blood cell count, unspecified (2) Hypertension Hypertension type: essential hypertension Qualified Code(s): I10 - Essential (primary) hypertension
[2019-11-06] MEDS ORDERED: VANCOMYCIN CONSULT ACTIVE PRN (22:14)
[2019-11-06] MEDS ORDERED: ALBUTEROL HFA 8 GM INHALER INH PRN (22:14)
[2019-11-06] MEDS ORDERED: VANCOMYCIN HCL 1,000 MG in SODIUM CHLORIDE 0.9% 250 ML IV SCH (22:14)
[2019-11-06] MEDS ORDERED: ONDANSETRON INJ 2 MG/ML 2 ML VIAL IV PRN (22:14)
[2019-11-06] MEDS ORDERED: ACETAMINOPHEN 325 MG TAB PO PRN (22:14)
[2019-11-06] MEDS ORDERED: PHENAZOPYRIDINE HCL 100 MG TAB PO PRN (22:14)
[2019-11-06] MEDS ORDERED: DOCUSATE SODIUM 100 MG CAP PO PRN (22:14)
[2019-11-06] MEDS: SODIUM CHLORIDE 0.9% 1000ML 1,000 ML IV SCH (22:40)
[2019-11-06] MEDS ORDERED: VANCOMYCIN HCL 1,750 MG in SODIUM CHLORIDE 0.9% 500 ML IV SCH (23:00)
[2019-11-06 23:11] LABS: Creatinine Clr Calc Pharmacy 57.3 ml/min; Est GFR (African American) 70.5; Est GFR (Non-African American) 60.9; Phosphorus 2.7 mg/dl (2.5-4.9)
--- NOTE | 2019-11-07 04:55 | Pharmacy Report ---
Pharmacy Abx Initial Consult - Date of Service November 07, 2019 - Pharmacy Dosing Scope Date of Consult: 11/06/19 Consultation requested by: Dr. Merlene Anglin Pharmacy is consulted to initiate IV Vancomycin dosing therapy, order appropriate labs and adjust drug dose/frequency. - Subjective The patient is a 79 year old F admitted on 11/06/19 19:52 with acute UTI. Patient with history of recurrent UTIs, most recent urine culture from 10/26/19 positive for >100,000 CFU enterococcus faecalis. She just completed course of Amoxicillin at home. Dr. Anglin admitted and started her on IV Vancomycin - Objective Height: 5 ft 8 in Weight: 79.379 kg Vital Signs (Past 12hrs): Vital Signs Temp Pulse Pulse Resp BP BP Pulse Ox 11/06/19 22:14 36.9 C 82 16 112/73 97 11/06/19 20:36 80 16 119/59 L 96 11/06/19 17:51 36.9 C 102 H 20 118/64 96 Lab Results (24hrs): Laboratory Tests (24 Hours) 11/06/19 11/06/19 22:32 18:50 Creatinine 0.91 Est Cr Clr Drug Dosing 57.3 Procalcitonin 6.78 H Micro Results: 11/06/19 18:41 Aerobic Blood Culture - Pending Blood Anaerobic Blood Culture - Pending 11/06/19 18:15 Aerobic Blood Culture - Pending Blood Anaerobic Blood Culture - Pending - Risk Factors for Resistance * Antimicrobial use within the last 90 days: amoxicillin - Assessment & Plan Assessment 79 year old F with complicated UTI Plan Vancomycin IV * Estimated PK Parameters: Vd 0.7 L/kg, Keegan 0.052 hr-1, t1/2 13.3 hr * Loading dose: 1750mg (~22 mg/kg) * Maintenance dose: 1000 mg IV (~12.6 mg/kg) every 12 hours (Per AUC protocol) * Goal trough level : 15-20 mcg/mL * Trough level ordered prior to 0400 dose on 11/09/19 Pharmacy will continue to follow and will adjust dose/frequency as necessary. Thank you.
[2019-11-07 06:07] LABS: Basophils # (auto) 0.01 K/uL (0-0.2); Basophils % (auto) 0.1 %; Eosinophils # (auto) 0.57 K/uL (0-0.5); Eosinophils % (auto) 5.8 %; Hematocrit (blood only) 35.5 % (37-47); Immature Granulocytes # (auto) 0.02 K/uL (0.00-0.02); Immature Granulocytes % (auto) 0.2 %; Lymphocytes # (auto) 0.89 K/uL (1.2-3.4); Lymphocytes % (auto) 9.1 %; Mean Corpuscular Hemoglobin 29.1 pg (25-34); Mean Corpuscular Hgb Conc 33.8 g/dL (32-36); Mean Corpuscular Volume 86.2 fL (80-100); Mean Platelet Volume 10.2 fL (7.4-10.4); Monocytes # (auto) 0.46 K/uL (0.11-0.59); Monocytes % (auto) 4.7 %; Neutrophils # (auto) 7.86 K/uL (1.4-6.5); Neutrophils % (auto) 80.1 %; Platelet Count 221 K/uL (130-400); RDW Coefficient of Variation 14.4 % (11.5-14.5); RDW Standard Deviation 45.3 fL (36.4-46.3); Red Blood Count 4.12 M/uL (4.2-5.4); White Blood Count 9.81 K/uL (4.8-10.8)
[2019-11-07 06:27] LABS: BUN Creatinine Ratio 23.4 (10-20); Calcium 8.3 mg/dl (8.5-10.1); Creatinine Clr Calc Pharmacy 66.8 ml/min; Est GFR (Non-African American) 73.3; Potassium 3.2 mmol/L (3.5-5.1)
--- NOTE | 2019-11-07 08:01 | Hospitalist Progress Note ---
Date of Service November 07, 2019 Assessment & Plan (1) Acute UTI: Patient with history of recurrent UTIs, most recent urine culture from 10/26/19 positive for >100,000 CFU enterococcus faecalis. Oraganism is wesley- sensitive. She completed a 7 day course of Amoxicillin with recurrence of sym ptoms. Presently cultures from 11/05 showed gram-negative bacilli -Continue Tolterodine (2) Leukocytosis: Secondary to likely urinary tract infection present on admission -Follow cultures (3) Hypertension: Blood pressure stable at present continues on indapamide, Diltiazem (4) Hypercholesterolemia: Chronic. -Continue Simvastatin 80mg po daily (5) Intrinsic asthma: Ppx - Lovenox for DVT prophylaxis Code - Full per discussion with patient Admission and Anticipated Discharge Date Admission Date: November 06, 2019 Subjective pt has improved she has minor abdominal pain, overall some fatigue is still present and not at baseline Review of Systems Review of Systems: Mild distress and moderate fatigue no headache, blurry or double vision no speech or swallowing issues no chest pain, pressure or palpitations no shortness of breath, cough or wheezes Mild suprapubic abdominal pain, nausea or vomiting, diarrhea or constipation no dysuria, hematuria or frequency no focal joint pain or swelling no back pain, CVA tenderness or radicular pain no bruising, bleeding or rashes no focal signs of weakness or numbness or altered sensation no complaints or anxiety or depression. Physical Exam Physical Exam: The patient appeared well nourished and normally developed. Vital signs as documented. Head exam is normocephalic atraumatic no scleral icterus Neck is without JVD, thyromegaly, or carotid bruits. Lungs are clear to auscultation, no focal loss of breath sounds Cardiac exam, Rhythm is regular.. No murmurs, rubs or gallops. Abdominal exam reveals normal bowel sounds, soft minor suprapubic tenderness no CVA angle tenderness, no masses Extremities are nonedematous and both pedal pulses are present Neurologic exam is alert and oriented, no focal loss of strength or sensation Skin is without bruises or rashes Psychologically is without concerns for anxiety or depression. Results & Data Results & Data ([facility]) Vital Signs (Past 12 Hours) Vital Signs Temp Pulse Pulse Resp BP Pulse Ox 11/07/19 07:28 98.2 F 76 18 112/67 95 11/06/19 22:14 98.4 F 82 16 112/73 97 11/06/19 20:36 80 16 119/59 L 96 PG Care Time/CCT Total # of Minutes Spent Total Time Spent with Patient: Total time spent is greater than 50% in coordination of care (as documented) at patient's floor/unit and/or counseling patient: Coding Level of Care Code 14588 Subseq Hosp Care Lvl 2 Diagnoses Acute UTI N39.0 Leukocytosis D72.829 Leukocytosis type: unspecified Hypertension I10 Hypertension type: essential hypertension Hypercholesterolemia E78.00 Intrinsic asthma J45.909 (1) Leukocytosis Leukocytosis type: unspecified Qualified Code(s): D72.829 - Elevated white blood cell count, unspecified (2) Hypertension Hypertension type: essential hypertension Qualified Code(s): I10 - Essential (primary) hypertension
[2019-11-07] MEDS: TOLTERODINE TARTRATE LA 4 MG CAPCR PO SCH (08:59)
[2019-11-07] MEDS: dilTIAZem HCL 180 MG CAPCR PO SCH (08:59)
[2019-11-07] MEDS: POTASSIUM CHLORIDE 20 MEQ TABCR PO SCH ×2 (08:59→20:27)
[2019-11-07] MEDS: ENOXAPARIN INJ 40 MG/0.4 ML SYR SQ SCH (08:59)
[2019-11-07] MEDS: INDAPAMIDE 1.25 MG TAB PO SCH (09:00)
[2019-11-07] MEDS ORDERED: PIPERACILL/TAZOBAC CONSULT ACTIVE PRN (11:48)
[2019-11-07] MEDS ORDERED: PIPERACILLIN/TAZOBACTAM 3.375 GM in DEXTROSE 5% 100 ML IV ONE (12:00)
[2019-11-07] MEDS: SODIUM CHLORIDE 0.9% 1000ML 1,000 ML IV SCH (12:06)
[2019-11-07] MEDS ORDERED: VANCOMYCIN HCL 1,000 MG in SODIUM CHLORIDE 0.9% 250 ML IV SCH (16:00)
[2019-11-07] MEDS: PIPERACILLIN/TAZOBACTAM 3.375 GM in DEXTROSE 5% 100 ML IV SCH (17:30)
[2019-11-07] MEDS ORDERED: SIMVASTATIN 80 MG TAB PO SCH (21:00)
[2019-11-08] MEDS ORDERED: CEFDINIR 300 MG CAP PO SCH
[2019-11-08] MEDS: PIPERACILLIN/TAZOBACTAM 3.375 GM in DEXTROSE 5% 100 ML IV SCH (01:59)
[2019-11-08 06:53] LABS: Creatinine Clr Calc Pharmacy 75.6 ml/min; Est GFR (African American) 97.3
[2019-11-08] MEDS: TOLTERODINE TARTRATE LA 4 MG CAPCR PO SCH (07:57)
[2019-11-08] MEDS: INDAPAMIDE 1.25 MG TAB PO SCH (07:57)
[2019-11-08] MEDS: POTASSIUM CHLORIDE 20 MEQ TABCR PO SCH (07:58)
[2019-11-08] MEDS: dilTIAZem HCL 180 MG CAPCR PO SCH (07:58)
[2019-11-08] MEDS: ENOXAPARIN INJ 40 MG/0.4 ML SYR SQ SCH (07:58)
[2019-11-08] MEDS ORDERED: CEFDINIR 300 MG CAP PO STA (08:03)
--- NOTE | 2019-11-08 14:42 | Discharge Summary ---
Date of Service November 08, 2019 Admission HPI Per Admitting Provider Stefanie Ponce is a 79yo C female with history of HTN, HLP and Asthma presenting with UTI, chills/rigors and leukocytosis. Patient with history of recurrent UTI. She developed dysuria approximately 1.5 weeks ago and was seen by her PCP. UA suggestive of infection, culture positive for Enterococcus faecalis. She was treated with Amoxicillin 500mg po q 8 hours x 7 days. She completed the course on Saturday11/03/19. She felt well on 11/03 after completing her antibiotics, however she began to feel ill yesterday. She had headache, myalgias, shaking chills and dysuria. She states that her hands, feet and body felt tight and swollen. This morning she had subjective fevers, shaking chills and felt "woozy". She also reports feeling itchy, had some nonspecific chest tightness and a deep cough. She called her PCP and had some blood work sent. She was instructed to come to the ER for leukocytosis and persistent symptoms. Patient reports two similar episodes with prior infections. On arrival to the ER she was found to be afebrile, mildly tachycardic with EP=155, NAD ER Course: Toradol, Zosyn Principal Diagnosis enterobacter uti poa Discharge Exam The patient appeared well Vital signs as documented. Lungs are clear to auscultation and appear unlabored Cardiac exam, Rhythm is regular.. No murmurs, rubs or gallops. Abdominal exam reveals normal bowel sounds, soft non tender, no masses Extremities are nonedematous and both pedal pulses are normal. Neurologic exam is alert and oriented, no focal loss of strength or sensation Skin is without bruises or rashes Psychologically is without concerns for anxiety or depression. Discharge Data Allergies Allergy/AdvReac Type Severity Reaction Status Date / Time acetaminophen Allergy Severe Delirium Verified 11/06/19 19:49 azithromycin Allergy Severe Itching Verified 11/06/19 19:49 [From Zithromax Z-Oleg] oxycodone Allergy Severe Delirium Verified 11/06/19 19:49 meperidine AdvReac Severe DIFFICULTY Verified 11/06/19 19:49 WAKING ciprofloxacin AdvReac Arthalgia, Verified 11/06/19 19:49 myalgia hydrocodone AdvReac Anxiety Verified 11/06/19 19:49 Consultations 11/06/19 18:44 ED Decision to Admit Stat Ordered Studies 11/06/19 18:10 CT abd pelvis IV con only Stat Hospital Course (1) Acute UTI: Patient with history of recurrent UTIs, most recent urine culture from 10/26/19 positive for >100,000 CFU enterococcus faecalis. Oraganism is wesley- sensitive. She completed a 7 day course of Amoxicillin with recurrence of symptoms. Presently cultures from 11/05 showed Enterobacter sensitive to third-generation cephalosporins discharged on cefdinir -Continue Tolterodine (2) Leukocytosis: Secondary to likely urinary tract infection present on admission (3) Hypertension: Blood pressure stable at present continues on indapamide, Diltiazem (4) Hypercholesterolemia: Chronic. -Continue Simvastatin 80mg po daily (5) Intrinsic asthma: Code - Full per discussion with patient Total Time Total Time Spent Total Time Spent (In Minutes): It required greater than 30 minutes to prepare this patient for discharge Discharge Plan Discharge Items Patient Disposition: Home - Self-Care Reason For Visit: RIGORS Discharge Diagnosis: enterobacter urinary tract infection Condition on Discharge: Good Activity: Resume your previous activity Non-emergency contact: Primary Care Provider Call non-emergency contact if: you have any medication questions and your symptoms worsen Follow-up/Referrals: Joshua Cuevas MD [Primary Care Provider] - Diet: Regular Addtl Attending Provider Instructions: please keep well hydrated and follow up with primary care doctor Pending Studies at Discharge: No Stand-Alone Forms: My [employer], Smoking Cessation Medications and DC Order Prescriptions: New cefdinir 300 mg capsule 300 mg PO BID 5 Days Qty: 10 RF: 0 Continued tolterodine [Detrol LA] 4 mg capsule,extended release 24hr 4 mg PO DAILY Qty: 90 RF: 3 indapamide 1.25 mg tablet 1.25 mg PO DAILY Qty: 90 RF: 2 calcium citrate-vitamin D3 [Calcium Citrate + D] 315-200 mg-unit tablet 1 tab PO DAILY RF: 0 diltiazem HCl 180 mg capsule,extended release 24hr 180 mg PO DAILY RF: 0 albuterol sulfate 90 mcg/actuation HFA aerosol inhaler 2 puffs inhalation .COMPLEX PRN (Reason: shortness of breath or wheezing) Qty: 18 RF: 0 simvastatin 80 mg tablet 80 mg PO HS Qty: 90 RF: 3 cholecalciferol (vitamin D3) [Vitamin D3] 25 mcg (1,000 unit) Tablet 25 mcg PO DAILY RF: 0 Cranberry Gummy (Otc) 0 mg 1 dose PO DAILY RF: 0 multivitamin Tablet 1 tab PO DAILY RF: 0 fluticasone propionate [Flonase Allergy Relief] 50 mcg/actuation [place],Suspension 1 spray INTRANASAL BID PRN (Reason: Allergy Symptoms) RF: 0 Discontinued amoxicillin 500 mg capsule 500 mg PO Q8H Qty: 21 RF: 0 Discharge Orders: Discharge Order (Routine); Ordered 11/08/19 Ordered By: Mert Garcia Admission Data Admit Date/Time: 11/06/19 19:52 Attending Provider: Mert Garcia Admit Provider: Merlene Anglin Primary Care Provider: Joshua Cuevas Other Providers: Renita Greenberg Other Interventions: Discharge Summary Assessment (RN) Last Done: 11/08/19 10:28 Coding Level of Care Code D/C Day Management >30 mins Diagnoses Acute UTI N39.0 Leukocytosis D72.829 Leukocytosis type: unspecified Hypertension I10 Hypertension type: essential hypertension Hypercholesterolemia E78.00 Intrinsic asthma J45.909
[2019-11-09] MEDS ORDERED: VANCOMYCIN TROUGH ONE (03:30)
== END 2019-11-08 11:42 | disposition home or self-care (01) | DRG 690 ==
LOC: ED 17:46 → 2N 19:52 → SUATTDRO 19:52 → 2N 21:58

== ENCOUNTER 2021-10-20 06:40 | Observation (INO) ==
--- NOTE | 2021-09-27 12:25 | PAT Medication Instructions ---
Medication Instructions Date of Service September 27, 2021 Home Medications Medication Instructions Recorded azelastine 137 mcg (0.1 %) nasal 2 spray intranasal ONCE #30 mL 11/09/20 spray aerosol diclofenac potassium 50 mg tablet 50 mg PO BID #180 tabs 02/14/21 albuterol sulfate 90 mcg/actuation 2 puff inhalation Q6H PRN 06/29/21 aerosol inhaler shortness of breath or wheezing #18 grams estradiol 0.01% (0.1 mg/gram) 1 g vaginal 2XWK #42.5 grams 07/31/21 vaginal cream (Estrace) methenamine hippurate 1 gram tablet 1 g PO Q12H uti 90 days #180 tabs 08/28/21 tramadol 50 mg tablet 50 mg PO Q8H PRN pain #30 tabs 09/12/21 calcium citrate 315 mg-vitamin D3 5 mcg (200 unit) tablet (Calcium Citrate + D) 1 tab PO QAM cholecalciferol (vitamin D3) 25 mcg (1,000 unit) tablet (Vitamin D3) 25 mcg PO QAM multivitamin 1 tab PO QAM Lactobacillus acidophilus 20 billion cell capsule (Florajen Acidophilus) 460 mg PO QAM diclofenac sodium 1 % topical gel 2 g topical QID PRN Pain azelastine 137 mcg (0.1 %) nasal spray aerosol 2 spray intranasal ONCE diclofenac potassium 50 mg tablet 50 mg PO BID albuterol sulfate 90 mcg/actuation aerosol inhaler 2 puff inhalation Q6H PRN shortness of breath or wheezing estradiol 0.01% (0.1 mg/gram) vaginal cream (Estrace) 1 g vaginal 2XWK methenamine hippurate 1 gram tablet 1 g PO Q12H uti tramadol 50 mg tablet 50 mg PO Q8H PRN pain atorvastatin 20 mg tablet (Lipitor) 20 mg PO QPM diltiazem HCl 180 mg capsule,extended release 24 hr 180 mg PO QAM gabapentin 100 mg capsule 100 mg PO HS neuropathic pain indapamide 1.25 mg tablet 1.25 mg PO QAM tolterodine 4 mg capsule,extended release 24 hr 4 mg PO QAM Continue as directed methenamine hippurate 1 gram tablet 1 g PO Q12H uti ASK your surgeon for instructions diclofenac sodium 1 % topical gel 2 g topical QID PRN Pain diclofenac potassium 50 mg tablet 50 mg PO BID STOP taking 24 hours before surgery estradiol 0.01% (0.1 mg/gram) vaginal cream (Estrace) 1 g vaginal 2XWK DO NOT take the morning of surgery calcium citrate 315 mg-vitamin D3 5 mcg (200 unit) tablet (Calcium Citrate + D) 1 tab PO QAM cholecalciferol (vitamin D3) 25 mcg (1,000 unit) tablet (Vitamin D3) 25 mcg PO QAM multivitamin 1 tab PO QAM Lactobacillus acidophilus 20 billion cell capsule (Florajen Acidophilus) 460 mg PO QAM indapamide 1.25 mg tablet 1.25 mg PO QAM tolterodine 4 mg capsule,extended release 24 hr 4 mg PO QAM Take morning of surgery With a small sip of water, OTHERWISE NOTHING TO EAT OR DRINK AFTER MIDNIGHT: azelastine 137 mcg (0.1 %) nasal spray aerosol 2 spray intranasal ONCE albuterol sulfate 90 mcg/actuation aerosol inhaler 2 puff inhalation Q6H PRN shortness of breath or wheezing(use if needed; please bring with you to hospital day of surgery if possible) tramadol 50 mg tablet 50 mg PO Q8H PRN pain(if needed) diltiazem HCl 180 mg capsule,extended release 24 hr 180 mg PO QAM Take evening before surgery albuterol sulfate 90 mcg/actuation aerosol inhaler 2 puff inhalation Q6H PRN shortness of breath or wheezing(if needed) tramadol 50 mg tablet 50 mg PO Q8H PRN pain(if needed) atorvastatin 20 mg tablet (Lipitor) 20 mg PO QPM gabapentin 100 mg capsule 100 mg PO HS neurpathic pain Other Notes If you have any questions please call us at [phone] or [phone] or [phone] or [phone]
--- NOTE | 2021-09-28 14:09 | Anesthesiology Consultation ---
Date of Service September 28, 2021 Assessment & Plan (1) Encounter for pre-operative examination: Chart Review Chart Review: Acceptable Risk for Surgery (pending routine neuro appt scheduled 10/03/21 ) and Patient seen in Pre Admission Testing - Awaiting routine neuro appt scheduled 10/03/21 Pt states that "a little goes a long way" with anesthesia Possible difficult intubation due to physical exam Per PAT appt on 09/28/21, patient denies any recent travel or large group activities. No known Covid positive exposures or Covid related symptoms. No known Covid infection in the past 90 days. Pt is vaccinated for Covid. Will leave to surgeon's discretion if preop Covid testing needed. Educated on importance of using Covid precautions one week prior to surgery Teaching & Discussion Pre-Anesthesia Teaching/Discussion Notes: Instructed NPO after midnight before surgery,except medications with 15 cc of water. Medication instructions provided according to the [facility] guidelines. History Surgery Operation Date: 10/20/21 07:00 Proposed Procedures p Left Total Shoulder Arthroplasty Chantell - Cordell Vale, Height/Weight Height: 5 ft 8.5 in Weight: 80.4 kg Allergies Allergy/AdvReac Type Severity Reaction Status Date / Time azithromycin Allergy Severe Itching Verified 09/26/21 14:00 [From Zithromax Z-Oleg] oxycodone Allergy Severe Delirium Verified 09/26/21 14:00 meperidine AdvReac Severe DIFFICULTY Verified 09/26/21 14:00 WAKING celecoxib [From Celebrex] AdvReac Intermediate lightheaded, Verified 09/26/21 14:00 tingling ciprofloxacin AdvReac Intermediate Arthalgia, Verified 09/26/21 14:00 myalgia hydrocodone AdvReac Intermediate Anxiety Verified 09/26/21 14:00 Medications Home Medications Medication Instructions Recorded Confirmed Last Taken calcium citrate 315 mg-vitamin D3 1 tab PO QAM 10/03/18 09/26/21 Unknown 5 mcg (200 unit) tablet (Calcium Citrate + D) cholecalciferol (vitamin D3) 25 25 mcg PO QAM 11/06/19 09/26/21 Unknown mcg (1,000 unit) tablet (Vitamin D3) multivitamin 1 tab PO QAM 11/06/19 09/26/21 Unknown Lactobacillus acidophilus 20 460 mg PO QAM 12/31/19 09/26/21 Unknown billion cell capsule (Florajen Acidophilus) diclofenac sodium 1 % topical gel 2 g topical QID PRN Pain 07/01/20 09/26/21 Unknown diclofenac potassium 50 mg tablet 50 mg PO BID #180 tabs 02/14/21 09/26/21 Unknown albuterol sulfate 90 mcg/actuation 2 puff inhalation Q6H PRN 06/29/21 09/26/21 Unknown aerosol inhaler shortness of breath or wheezing #18 grams estradiol 0.01% (0.1 mg/gram) 1 g vaginal 2XWK #42.5 grams 07/31/21 09/26/21 Unknown vaginal cream (Estrace) methenamine hippurate 1 gram tablet 1 g PO Q12H uti 90 days #180 tabs 08/28/21 09/26/21 Unknown tramadol 50 mg tablet 50 mg PO Q8H PRN pain #30 tabs 09/12/21 09/26/21 Unknown atorvastatin 20 mg tablet (Lipitor) 20 mg PO QPM 09/26/21 09/26/21 Unknown diltiazem HCl 180 mg 180 mg PO QAM 09/26/21 09/26/21 Unknown capsule,extended release 24 hr gabapentin 100 mg capsule 100 mg PO HS neurpathic pain 09/26/21 09/26/21 Unknown indapamide 1.25 mg tablet 1.25 mg PO QAM 09/26/21 09/26/21 Unknown tolterodine 4 mg capsule,extended 4 mg PO QAM 09/26/21 09/26/21 Unknown release 24 hr azelastine 137 mcg (0.1 %) nasal 2 spray intranasal ONCE #30 mL 09/29/21 Unknown spray aerosol Past Medical History Medical History Actinic keratosis Dyslipidemia History of basal cell carcinoma Right thigh and corner of left eye Hx of herpes zoster Approximately 2019- has had nerve pain since that time Hypertension Neuropathy Bilateral feet - on gabapentin Does have ongoing left sided "nerve pain" - will be following neuro 10/04 Rotator cuff dysfunction left Senile lentigo Varicose veins of anus or rectum No issues per patient Varicose veins of bilateral lower extremities with other complications S/p left leg ablation of GSV as well as stab phlebectomies of left LE 1.5 years ago while in [place] Follows with Dr Manzanares- last seen 08/2021- follow up PRN Exercise / Class Metabolic Activity II 4-5 Yardwork/Stairs/Walk up hill (one flight of stairs - no chest pain or SOB ) Past Family History Family History Father Bladder cancer Deafness Mother Hypertension Grandmother (Maternal) Diabetes Past Surgical History Surgical History H/O: hysterectomy History of bilateral knee replacement History of carpal tunnel surgery of left wrist History of colonoscopy Hx of hernia repair Past Anesthesia History No Hx of Anesthesia Complications and No Family Hx of Anesthesia Complications History of PONV No Hx of PONV and No Hx of Motion Sickness Social History Smoking Status: Former smoker tobacco type: cigarettes Do You Dip or Chew Tobacco: No Smoking End Date: 55 years ago Hx Alcohol Use: Yes Alcohol type: beer and wine alcohol intake frequency: holidays/special occasions only Hx Substance Use: No substance use type: does not use Review of Systems Cough - secondary to mild asthma and allergies- well controlled with nasal spray Hx of superficial phlebitis 2020 Patient denies recent chest pain, shortness of breath at rest, dyspnea on exertion, reflux, wheezing, palpitations. No hx of seizures, stroke, MT, apnea/snoring. No hx of blood transfusions Physical Exam Vital Signs VITALS BP 160/80 P 81 TEMP 98.5 SP02 97% RESP 16 Constitutional no acute distress ENMT Mouth: + small oral opening; no TMJ clicking Thyromental Distance: < 3.5 Finger Breadths (3.0) Mallampati Class: IV Crowns to molars Permanent bridges to side teeth Neck + limited neck extension (significant ) Respiratory normal respiratory effort; no respiratory distress Auscultation: lungs clear to auscultation bilaterally; no wheezes Cardiovascular Rate/Rhythm: regular rate and regular rhythm Heart Sounds: no murmur Vessels: no carotid bruit Musculoskeletal Spine: no pain with cervical ROM Extremities: extremities normal to inspection Psychiatric Orientation: alert Lab Results Anesthesia Preop Results Results Anesthesia Widget: WBC 6.25 K/ul (4.8-10.8) 09/28/21 Hgb 14.2 g/dl (12.0-16.0) 09/28/21 Hct 43.0 % (34.1-44.9) 09/28/21 Plt 305 K/uL (130-400) 09/28/21 Na 136 mmol/L (136-145) 09/28/21 K 3.3 mmol/L (3.5-5.1) L 09/28/21 Cl 101 mmol/L (98-107) 09/28/21 CO2 29 mmol/L (21-32) 09/28/21 BUN 21 mg/dl (6-23) 09/28/21 Creat 0.76 mg/dl (0.6-1.2) 09/28/21 Glucose Level 105 mg/dl (70-99(Fasting)) H 09/28/21 PT 10.6 Seconds (9.0-12.0) 09/28/21 PTT 26.5 Seconds (21.0-31.0) 09/28/21 INR 1.0 (0.9-1.1) 09/28/21 Blood Type A Positive 09/28/21 Antibody Screen NEGATIVE 09/28/21 Testing Electrocardiogram Date: 09/28/21 Findings: + NSR @ (71bpm ) Low voltage QRS RSR' or QR pattern in V1 suggest RV conduction delay Nonspecific ST and T wave abnormality When compared to EKG from Jan 16, 2021- minimal criteria for anterior infact are no longer present per cardio. Chest X-Ray Date: 01/16/21 Findings: + NAD
--- NOTE | 2021-10-19 07:36 | History & Physical Report ---
Date of Service October 19, 2021 Assessment & Plan (1) Primary osteoarthritis of right shoulder: We will proceed with a right reverse shoulder arthroplasty. Postoperatively she will be placed in a sling and kept overnight in the hospital for postoperative medical management. She plans to use [facility] for physical therapy upon discharge. History of Present Illness Chief Complaint: Osteoarthritis right shoulder. Primary Care Provider: Andres Garcia MD Stefanie is a pleasant 81-year-old female who has been dealing with chronic left shoulder pain. It has been going on for years. I saw her about 3 or 4 years ago for the left shoulder. Unfortunately, it was getting worse recently. She is unable to sleep at night. She has trouble doing activities away from her body or up overhead. It is really affecting her quality of life. She has a history of carpal tunnel release by Dr. 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 She has been a little apprehensive about proceeding with shoulder surgery because of that. X-rays have shown advanced osteoarthritis of the right shoulder. After failing years of conservative treatment, she has elected proceed with a right reverse shoulder arthroplasty. Allergies Allergy/AdvReac Type Severity Reaction Status Date / Time azithromycin Allergy Severe Itching Verified 10/03/21 11:06 [From Zithromax Z-Oleg] oxycodone Allergy Severe Delirium Verified 10/03/21 11:06 meperidine AdvReac Severe DIFFICULTY Verified 10/03/21 11:06 WAKING celecoxib [From Celebrex] AdvReac Intermediate lightheaded, Verified 10/03/21 11:06 tingling ciprofloxacin AdvReac Intermediate Arthalgia, Verified 10/03/21 11:06 myalgia hydrocodone AdvReac Intermediate Anxiety Verified 10/03/21 11:06 Home Medications Medication Instructions Recorded Confirmed Type calcium citrate 315 mg-vitamin D3 1 tab PO QAM 10/03/18 10/03/21 History 5 mcg (200 unit) tablet (Calcium Citrate + D) cholecalciferol (vitamin D3) 25 25 mcg PO QAM 11/06/19 10/03/21 History mcg (1,000 unit) tablet (Vitamin D3) multivitamin 1 tab PO QAM 11/06/19 10/03/21 History Lactobacillus acidophilus 20 460 mg PO QAM 12/31/19 10/03/21 History billion cell capsule (Florajen Acidophilus) diclofenac sodium 1 % topical gel 2 g topical QID PRN Pain 07/01/20 10/03/21 History diclofenac potassium 50 mg tablet 50 mg PO BID #180 tabs 02/14/21 10/03/21 Rx albuterol sulfate 90 mcg/actuation 2 puff inhalation Q6H PRN 06/29/21 10/03/21 Rx aerosol inhaler shortness of breath or wheezing #18 grams estradiol 0.01% (0.1 mg/gram) 1 g vaginal 2XWK #42.5 grams 07/31/21 10/03/21 Rx vaginal cream (Estrace) methenamine hippurate 1 gram tablet 1 g PO Q12H uti 90 days #180 tabs 08/28/21 10/03/21 Rx tramadol 50 mg tablet 50 mg PO Q8H PRN pain #30 tabs 09/12/21 10/03/21 Rx atorvastatin 20 mg tablet (Lipitor) 20 mg PO QPM 09/26/21 10/03/21 History diltiazem HCl 180 mg 180 mg PO QAM 09/26/21 10/03/21 History capsule,extended release 24 hr indapamide 1.25 mg tablet 1.25 mg PO QAM 09/26/21 10/03/21 History tolterodine 4 mg capsule,extended 4 mg PO QAM 09/26/21 10/03/21 History release 24 hr azelastine 137 mcg (0.1 %) nasal 2 spray intranasal ONCE #30 mL 09/29/21 10/03/21 Rx spray aerosol gabapentin 100 mg capsule 200 mg PO HS neurpathic pain #60 10/03/21 10/03/21 Rx caps Past Med/Surg History Medical History Actinic keratosis Asthma Chronic rhinitis Dyslipidemia History of basal cell carcinoma Right thigh and corner of left eye Hx of herpes zoster Approximately 2019- has had nerve pain since that time Hypertension Neuropathy Bilateral feet - on gabapentin Does have ongoing left sided "nerve pain" - will be following neuro 10/04 Rotator cuff dysfunction left Senile lentigo Varicose veins of anus or rectum No issues per patient Varicose veins of bilateral lower extremities with other complications S/p left leg ablation of GSV as well as stab phlebectomies of left LE 1.5 years ago while in [place] Follows with Dr Manzanares- last seen 08/2021- follow up PRN Surgical History H/O: hysterectomy History of bilateral knee replacement History of carpal tunnel surgery of left wrist History of colonoscopy Hx of hernia repair Family History Father Bladder cancer Deafness Mother Hypertension Grandmother (Maternal) Diabetes Social History Smoking Status: Former smoker Age Started Using Tobacco: 23; Age Quit Using Tobacco: 27; Second Hand Exposure: No; Hx Alcohol Use: Yes Alcohol type: beer and wine Alcohol type Comment: occasionally Hx Substance Use: No Preferred Language: Luxembourgish Communication Ability: Effective 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 Physical Exam On physical examination of the right shoulder, she has a 130 degrees forward elevation 130 degrees of abduction. She has 5 out of 5 motor strength throughout. There is pain over the glenohumeral joint line.. Constitutional WD/WN, vitals as above Eyes PERRL, conjunctivae normal, anicteric sclerae ENMT external ear and nose normal, oropharynx normal Neck trachea midline, no thyromegaly Respiratory normal respiratory effort, lungs clear to auscultation Cardiovascular RRR, no murmur, no edema Gastrointestinal (Abdomen) normal bowel sounds, soft, nontender, no hepatosplenomegaly Skin no rashes, warm and dry Psychiatric A+Ox3, euthymic affect Results & Data Results & Data Laboratory Results . Diagnostic Findings X-rays of the right shoulder show advanced osteoarthritis with joint space narrowing, osteophyte formation, and [id number] articulation. PG Care Time/CCT Total # of Minutes Spent Total Time Spent with Patient: Total time spent is greater than 50% in coordination of care (as documented) at patient's floor/unit and/or counseling patient: Coding Level of Care Code None Diagnoses Primary osteoarthritis of right shoulder M19.011
[~2021-10-20 06:40] MED LIST changes: +ACETAMINOPHEN 500 MG TAB PO SCH; -ADVIN10/60 INH; +BUPIVACAINE 0.5 % 5 MG/1 ML PF 10ML VIAL ONE; -CALC-20 PO; -COEN1CAP37 PO; +FAMOTIDINE 20 MG TAB PO SCH; +GABAPENTIN 300 MG CAP PO SCH; +Ketorolac (*for OR use only*) 30 MG, dexAMETHasone 4 MG, KETAMINE HCL (**OR use only) 1... INFIL SCH; -LACT1CAP6 PO; +LR 15ML/HR IV SCH; +LR 60ML/HR IV SCH; -LZL125 PO; -MULTTAB5 PO; +TRANEXAMIC ACID 1,000 MG **IV Intra-op IV SCH; +TRANEXAMIC ACID 1,000 MG **IV Pre-op IV SCH; -ZCR80 PO; +ceFAZolin 2000MG 2,000 MG/15 ML SYR IV SCH; +dexAMETHasone 4 MG TAB PO SCH; -magnesium PO
--- NOTE | 2021-10-20 08:16 | History & Physical Bridge Note ---
Date of Service October 20, 2021 History & Physical Bridge Note I have examined the patient, reviewed the History & Physical and in the interval since the performance of the History & Physical I have noted the following changes of clinical significance: no changes noted
[2021-10-20] MEDS ORDERED: fentaNYL citrate 100 MCG/2 ML VIAL ONE (08:28)
[2021-10-20] MEDS ORDERED: MIDAZOLAM HCL 1 MG/ML 2ML VIAL ONE (08:28)
[2021-10-20] MEDS ORDERED: ORTHO JOINT ANESTHETIC ONE (08:44)
[2021-10-20] MEDS ORDERED: ATROPINE SULFATE 0.1 MG/ML 10ML SYR IV PRN (09:01)
[2021-10-20] MEDS ORDERED: ePHEDrine sulfate 50 MG/ML AMP IV PRN (09:01)
[2021-10-20] MEDS ORDERED: ONDANSETRON INJ 2 MG/ML 2 ML VIAL IV PRN ×2 (09:01→12:49)
[2021-10-20] MEDS ORDERED: ROCURONIUM BROMIDE 10 MG/ML 5 ML VIAL IV ONE (09:50)
[2021-10-20] MEDS ORDERED: LIDOCAINE 2% MPF LOCAL 5 ML VIAL INFIL ONE (09:50)
[2021-10-20] MEDS ORDERED: PROPOFOL IV EMULSION 10 MG/ML 20 ML VIAL IV ONE (09:50)
[2021-10-20] MEDS ORDERED: DEXAMETHASONE SOD INJ 4 MG/ML VIAL ONE (09:59)
[2021-10-20] MEDS ORDERED: ONDANSETRON INJ 2 MG/ML 2 ML VIAL ONE (09:59)
[2021-10-20] MEDS ORDERED: ePHEDrine sulfate 50 MG/ML AMP ONE (09:59)
[2021-10-20] MEDS ORDERED: GLYCOPYRROLATE 0.2 MG/ML VIAL ONE (10:37)
[2021-10-20] MEDS ORDERED: NEOSTIGMINE METHYLSULFATE 1 MG/ML 10ML VIAL ONE (10:37)
[2021-10-20] MEDS ORDERED: PHENYLEPHRINE 100MCG/ML 5ML SYR ONE (10:37)
--- NOTE | 2021-10-20 10:43 | Operative Report ---
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 A tenodesis was opted. This was a separate and distinct portion of the procedure. For these reasons, a CPT code modifier 59 will be added to this case. Implants used: I used a [employer]omet Comprehensive reverse total shoulder arthroplasty system with a size 12 press fit micro humeral stem, a +6 offset humeral tray and a standard humeral bearing, a 25 mm mini baseplate with a 6.5 mm central screw and superior and inferior locking screws, and a size 40 mm eccentric glenosphere. Stefanie arrived at [facility] for the above procedure. She was seen in the preoperative holding area and the operative extremity was identified and signed. She was given a preoperative antibiotic, TXA, and an interscalene nerve block. She was taken back to the operating room, laid on table in supine position, and put under general anesthesia. She was then put into the beachchair position. The shoulder was then prepped and draped in sterile fashion. A timeout was done and the patient and the operative extremity was properly identified. A deltopectoral approach was used. Dissection was taken down through the fascia and the deltoid was retracted laterally and the conjoined tendon was retracted medially. The anterior shoulder was exposed. The biceps groove was opened up and the biceps tendon was examined extensively. The biceps tendon demonstrated enlargement and inflammatory changes consistent with longstanding inflammation in the context of osteoarthritis and cuff arthropathy. The long head of the biceps tendon was then tenodesed to the upper border of the pectoralis major. This was a separate and distinct portion of the procedure. The subscapularis was then directly released off the lesser tuberosity with a peel technique. The inferior capsule was released and the humeral head was dislocated. A canal finding reamer was sent down the center of the humeral canal. Sequential reaming up to a size 12 reamer was done. Off that reamer, a proximal humeral resection guide was placed. The proximal humerus was resected at 135 of inclination and 25 of retroversion. Osteophytes were then removed and the glenoid was exposed. Time was spent doing a complete capsular and labral release. The glenoid guide was then placed in the inferior aspect of the glenoid. A 3.2 mm Steinmann pin was then placed into the glenoid vault at 10 of inclination. The glenoid baseplate was then reamed. The final size 25 mm baseplate was then impacted in the place. A 6.5 mm central screw was then placed followed by superior and inferior locking screws. A 40 mm eccentric glenosphere was then impacted into place. Surrounding soft tissues were then injected with 100 cc an orthopedic pain control cocktail. The proximal humerus was then exposed. Sequential broaching of the humerus up to a size 12 broach was done. Off that broach a +6 offset humeral tray was trialed. The shoulder was then reduced, brought through a full range of motion, and felt to be stable. The shoulder was then dislocated and the broach was removed. The final size 12 micro press-fit humeral stem was then impacted into place. A standard humeral bearing was then snapped onto a +6 offset humeral tray. The humeral tray was then impacted onto the humeral stem. The shoulder was once again reduced, brought through a full range of motion, and felt to be stable. The subscapularis was retracted and poor quality. It was not able to be repaired. A dilute betadyne lavage was then done for 3 minutes. The joint was then irrigated with normal saline solution. Hemostasis was obtained. The interval was closed with 2-0 Vicryl suture. The skin was then closed with 2-0 Vicryl and jerald. A Silverlon dressing was placed and the arm was rested in a regular arm sling. She was then extubated and transferred to a hospital bed. She taken to the postanesthesia care unit in stable condition. She tolerated the procedure well. Cordell Nelson PA-C, was present for the entire procedure. He was critical for patient positioning, prepping, draping, retraction exposure, wound closure and application of sterile dressing. I attest to the content of the Intraoperative Record and any orders documented therein. Any exceptions are noted below.
--- NOTE | 2021-10-20 12:19 | XRay Report ---
LEFT SHOULDER 2 VIEWS CLINICAL HISTORY: Postoperative examination. FINDINGS: 2 portable views of the left shoulder are obtained. A left shoulder arthroplasty is in near anatomic alignment. No acute fracture is seen. Skin clips, subcutaneous gas, and soft tissue swellin g overlying the left shoulder are expected postoperative changes. Productive degenerative change is n oted at the acromioclavicular joint. Atelectasis is seen at the left lung base. IMPRESSION: Expected postoperative findings status post left shoulder arthroplasty. No acute fracture is seen. Electronically signed by: Nirmal Lora M.D. 10/20/2021 12:17 PM
[2021-10-20] MEDS ORDERED: oxyCODONE HCL IR 5 MG TAB (IMMEDIATE RELEASE) PO PRN (12:49)
[2021-10-20] MEDS ORDERED: ALBUTEROL HFA 8 GM INHALER INH PRN (12:49)
[2021-10-20] MEDS ORDERED: NALOXONE HCL 0.4 MG/1 ML VIAL/CARP IV PRN (12:49)
[2021-10-20] MEDS: SODIUM CHLORIDE 0.9% 1000ML 1,000 ML IV SCH ×2 (12:49→23:50)
[2021-10-20] MEDS ORDERED: HYDROmorphone INJ 0.5 MG/0.5 ML SYR IV PRN (12:49)
[2021-10-20] MEDS ORDERED: AZELASTINE HCL 0.1% NASAL 200 SPRAYS/27,400 MCG BTL PRN (12:49)
[2021-10-20] MEDS ORDERED: MAGNESIUM HYDROXIDE SUSP 30 ML UDC PO PRN (12:49)
[2021-10-20] MEDS ORDERED: bisacodyL 10 MG SUPP PR PRN (12:49)
[2021-10-20] MEDS ORDERED: METOCLOPRAMIDE HCL INJ 5 MG/ML 2 ML VIAL IV PRN (12:49)
--- NOTE | 2021-10-20 13:14 | Anesthesiology Progress Note ---
Date of Service October 20, 2021 Anesthesia Post Procedure Vital Signs Vital Signs: Temp Pulse Pulse Resp BP Pulse Ox O2 Del Method 10/20/21 12:10 82 20 128/58 L 94 Nasal Cannula 10/20/21 11:55 81 16 121/69 94 Nasal Cannula 10/20/21 11:40 36.1 C L 82 15 125/63 95 Nasal Cannula 10/20/21 11:30 82 25 H 132/62 96 10/20/21 11:20 73 15 123/65 93 10/20/21 11:12 36.3 C L 79 20 124/65 93 10/20/21 07:30 36.6 C 83 20 155/80 H 96 Room Air O2 Flow Rate 10/20/21 12:10 4 10/20/21 11:55 4 10/20/21 11:40 4 10/20/21 11:30 4 10/20/21 11:20 6 10/20/21 11:12 6 10/20/21 07:30 Pain Intensity Groin: Pain Intensity: 0 Transfer of Care Handoff Completed per policy Notes Mental Status: alert / awake / arousable and participated in evaluation Patient Amnestic to Procedure: Yes Nausea / Vomiting: adequately controlled Pain: adequately controlled Airway Patency, RR, SpO2: stable & adequate BP & HR: stable & adequate Hydration State: stable & adequate Anesthetic Complications: no major complications apparent and Pt Satisfied with anesthetic care
[2021-10-20] MEDS: KETOROLAC TROMETHAMINE 15 MG/ML VIAL IV SCH ×2 (14:18→21:23)
[2021-10-20] MEDS: METHENAMINE HIPPURATE 1 GM TAB PO SCH ×2 (14:18→21:22)
[2021-10-20] MEDS: ACETAMINOPHEN 500 MG TAB PO SCH ×2 (14:19→21:22)
[2021-10-20] MEDS: ceFAZolin 2000MG 2,000 MG/15 ML SYR IV SCH (17:59)
[2021-10-20] MEDS ORDERED: SENNA 8.6 MG TAB PO SCH (21:00)
[2021-10-20] MEDS ORDERED: GABAPENTIN 100 MG CAP PO SCH (21:00)
[2021-10-20] MEDS: DOCUSATE SODIUM 100 MG CAP PO SCH (21:22)
[2021-10-21] MEDS: KETOROLAC TROMETHAMINE 15 MG/ML VIAL IV SCH ×2 (01:37→07:57)
[2021-10-21] MEDS: ceFAZolin 2000MG 2,000 MG/15 ML SYR IV SCH (01:38)
[2021-10-21] MEDS: ACETAMINOPHEN 500 MG TAB PO SCH (06:26)
[2021-10-21] MEDS: DOCUSATE SODIUM 100 MG CAP PO SCH (07:56)
[2021-10-21] MEDS: METHENAMINE HIPPURATE 1 GM TAB PO SCH (07:56)
[2021-10-21] MEDS ORDERED: dexAMETHasone 4 MG TAB PO SCH (08:00)
[2021-10-21] MEDS ORDERED: COUGH DROP (SUGAR FREE) LOZ 24 LOZ/1 BOX BUCCAL ONE (08:01)
--- NOTE | 2021-10-21 08:59 | Orthopedic Progress Note ---
Date of Service October 21, 2021 Assessment & Plan (1) Status post reverse total replacement of left shoulder: Overall she is doing very well. She is not having much pain in the left shoulder. She will be seen by physical therapy today for ambulation and range of motion exercises. She can be discharged home later today. She will follow- up with orthopedics in 2 weeks. Subjective Stefanie was seen and examined at bedside this morning. Overall she is doing very well. She is having any pain in the left shoulder. She was able to get some sleep last night. She has no complaints.. Review of Systems All systems reviewed & are unremarkable except as noted in HPI & below. Physical Exam On physical examination of the left shoulder, the dressing has a little bit of bloody drainage in the window but nothing draining from underneath the dressing. She has active motion of her hand and her wrist. She is wearing her sling as instructed.. Results & Data Results & Data Laboratory Results . Diagnostic Findings Postoperative x-rays of the left shoulder show the prosthesis to be in anatomic alignment without any evidence of fracture, desiccation, or loosening. PG Care Time/CCT Total # of Minutes Spent Total Time Spent with Patient: Total time spent is greater than 50% in coordination of care (as documented) at patient's floor/unit and/or counseling patient: Coding Level of Care Code 13008 Post Operative Follow-Up Diagnoses Status post reverse total replacement of left shoulder Z96.612
[2021-10-21] MEDS ORDERED: TOLTERODINE TARTRATE LA 4 MG CAPCR PO SCH (09:00)
[2021-10-21] MEDS ORDERED: MULTIVITAMIN TAB PO SCH (09:00)
[2021-10-21] MEDS ORDERED: dilTIAZem HCL 180 MG CAPCR PO SCH (09:00)
[2021-10-21] MEDS ORDERED: INDAPAMIDE 1.25 MG TAB PO SCH (09:00)
--- NOTE | 2021-10-21 09:00 | Discharge Summary ---
Date of Service October 21, 2021 Admission HPI (Per Admitting) Stefanie is a pleasant 81-year-old female who has been dealing with chronic left shoulder pain. It has been going on for years. I saw her about 3 or 4 years ago for the left shoulder. Unfortunately, it was getting worse recently. She is unable to sleep at night. She has trouble doing activities away from her body or up overhead. It is really affecting her quality of life. She has a history of carpal tunnel release by Dr. 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 She has been a little apprehensive about proceeding with shoulder surgery because of that. X-rays have shown advanced osteoarthritis of the right shoulder. After failing years of conservative treatment, she has elected proceed with a right reverse shoulder arthroplasty. Admission Exam (Per Admitting) On physical examination of the right shoulder, she has a 130 degrees forward elevation 130 degrees of abduction. She has 5 out of 5 motor strength throughout. There is pain over the glenohumeral joint line.. Principal Diagnosis Same as "Discharge Diagnosis" noted below under Discharge Instructions. Discharge Exam On physical examination of the left shoulder, the dressing has a little bit of bloody drainage in the window but nothing draining from underneath the dressing. She has active motion of her hand and her wrist. She is wearing her sling as instructed.. Discharge Data Procedures Performed Operation Date: 10/20/21 09:20 Actual Procedures p Left Reverse Total Shoulder Arthroplasty(Left) - Cordell Vale DO Ordered Studies 10/20/21 05:00 US - OR guided needle placemen Routine Hospital Course (1) Status post reverse total replacement of left shoulder: On October 20, 2021 Stefanie arrived at [facility] and underwent a left reverse shoulder replacement without complication. She had a general anesthetic and a left interscalene nerve block. Postoperatively she was placed in a sling and transferred to the general orthopedic floors. Her hospital course was uneventful. On postop day #1, her vital signs were stable and her pain was well controlled. She was able to participate well with physical therapy doing ambulation and range of motion exercises. She was then discharged home. She will follow-up with orthopedics in 2 weeks. PG Care Time/CCT Total # of Minutes Spent Total Time Spent with Patient: Total time spent is greater than 50% in coordination of care (as documented) at patient's floor/unit and/or counseling patient: Discharge Plan Discharge Items Patient Disposition: Home - Home Health Services Reason For Visit: POST OP Discharge Diagnosis: Status post left reverse shoulder replacement Activity: Per Instructions section Non-emergency contact: Surgeon Call non-emergency contact if: your wound has increased redness and your wound has increased drainage Follow-up/Referrals: Andres Garcia MD [Primary Care Provider] - Diet: Regular Addtl Attending Provider Instructions: Activity and Therapy Recommendations: * If you are using [facility] then therapy will be provided at your home until they feel you have accomplished all of your goals. * If you are using [facility] then Physical Therapy will be provided until they feel you are ready to start Outpatient Physical Therapy. * If you are not using home therapy then Outpatient Physical Therapy should start about 3-5 days from your day of surgery. Therapy will last about 8-12 weeks * Wear your sling for 3 weeks, unless otherwise instructed. You may remove your sling to shower and to dress, but otherwise, you should be in your sling at all times, including while sleeping * The shoulder replacement is very stable and you can use your hand while in the sling * You were shown a series of exercises in the hospital. Do these exercises daily including the exercises you were shown in physical therapy. Medications: * Narcotic You will likely be sent home from the hospital with a prescription for the narcotic pain medication that worked best throughout your stay. * Other medications may be prescribed for specific circumstances. If you have any questions, please call the office at . * Resume previous home medications unless otherwise instructed Dressing Care: Leave the Silverlon dressing in place for 7 days. After 7 days you may remove the dressing. If the incision is not draining then you may leave the jerald open to air. If there is a little bit of drainage or if the jerald are getting stuck on your clothing then cover the incision with a dry dressing. The jerald will be removed at your 2 week follow-up appointment. Showering: You may shower with the Silverlon dressing in place. Do not let the shower spray hit the dressing directly. Pat the Silverlon dressing dry. If the dressing becomes wet underneath, then simply remove the dressing. Keep the incision dry until you are 7 days out from the day of surgery. After 7 days you may remove the Silverlon dressing and shower with the jerald exposed. Let soapy water run over the jerald and pat them dry. Do not scrub or soak the incision. Things To Watch For: * Drainage from the incision site that occurs more than one week after your surgery. * Increased redness at the incision site. * Fever above 102 degrees Fahrenheit. * Unusual chest pain or shortness of breath. * Call [facility] at with any of the above problems Follow-Up Visit: Follow-up with Dr. Vale's PA (Cordell Nelson) 2-3 weeks after your day of surgery. He will remove your jerald and answer any questions. If you have any additional questions or concerns, Dr Vale is usually in the office at the same time and will be available An appointment was probably scheduled when you signed-up for surgery in the office. If you have any questions call More detailed instructions as well as Frequently Asked Questions were provided in a folder by our office when you signed-up for surgery. Please review these instructions when you get home. If you have any further questions or concerns, please feel free to call the office at [phone] Pending Studies at Discharge: No Stand-Alone Forms: My [facility] Medications and DC Order Prescriptions: Continued albuterol sulfate 90 mcg/actuation HFA aerosol inhaler 2 puff inhalation Q6H PRN (Reason: shortness of breath or wheezing) Qty: 18 1RF estradiol [Estrace] 0.01 % (0.1 mg/gram) cream 1 g vaginal 2XWK Qty: 42.5 0RF Rx Instructions: Apply a pea-sized amount to vaginal opening two times per week azelastine 137 mcg (0.1 %) aerosol,spray 2 spray intranasal ONCE Qty: 30 3RF Rx Instructions: administer into each nostril calcium citrate-vitamin D3 [Calcium Citrate + D] 315-200 mg-unit tablet 1 tab PO QAM gabapentin 100 mg capsule 200 mg PO HS Qty: 60 5RF Rx Instructions: 1 capsule at night diclofenac sodium 1 % gel 2 g topical QID PRN (Reason: Pain) Rx Instructions: apply to shoulder at night, and every 6 hours as needed. 8gm/24 hours per joint Florajen Acidophilus 460 mg (20 billion cell) capsule 460 mg PO QAM Label Comments: 15 billion Rx Instructions: administer on an empty stomach, 1 hour before or 2-3 hours after meals cholecalciferol (vitamin D3) [Vitamin D3] 25 mcg (1,000 unit) Tablet 25 mcg PO QAM multivitamin Tablet 1 tab PO QAM atorvastatin [Lipitor] 20 mg tablet 20 mg PO QPM diltiazem HCl [Cardizem CD] 180 mg capsule,extended release 24hr 180 mg PO QAM tolterodine [Detrol LA] 4 mg capsule,extended release 24hr 4 mg PO QAM indapamide 1.25 mg tablet 1.25 mg PO QAM methenamine hippurate [Hiprex] 1 gram tablet 1 g PO Q12H diclofenac potassium [Cataflam] 50 mg tablet 50 mg PO BID Rx Instructions: 1 tablet twice per day with food. tramadol 50 mg tablet 50 mg PO Q8H PRN (Reason: pain) Qty: 30 0RF Discharge Orders: Discharge Order (Routine); Ordered 10/21/21 Ordered By: Cordell Vale Admission Data Admit Date/Time: 10/20/21 10:58 Attending Provider: Cordell Vale Admit Provider: Cordell Vale Primary Care Provider: Andres Gracia
== END 2021-10-21 14:30 | disposition home health service (06) ==
LOC: 3W 06:40 → ASU 06:40

== ENCOUNTER 2023-07-18 11:38 | Observation (INO) ==
--- NOTE | 2023-07-18 12:21 | Emergency Department Note ---
History of Present Illness General Chief complaint: Back Injury/Pain Stated complaint: BACK AND DOWN MY LEGS PAIN Time Seen by Provider: 07/18/23 11:50 History of Present Illness Maximum Pain Intensity: 9 NAME: JAMES YUNG AGE: 83 SEX: F : 1940 ARRIVES VIA: Walk-In INFORMANT: Patient ED PROVIDER(S): FRANCHESCA Montes, Jones Ríos, The patient is an 83-year-old female who arrives to the emergency department for evaluation of lumbar pain acute on chronic. She reports she had an MRI 3 years ago and the orthopedic surgeon noted 3 "spots of narrowing." She states the surgeon wanted to operate, which she declined at that time. She states she has been doing physical therapy, and moving as much as possible to help eliminate the pain, however she attempted to do that today and was unable to put her left foot onto the ground. She states no numbness or tingling, or loss of sensation. She reports the pain originates in her lower lumbar spine radiating into her left gluteus and down her left posterior leg into the left foot. She reports no loss of bowel or bladder, no numbness or tingling in her groin. She reports she had a normal bowel movement today, which usually alleviates some of her pain, however today it did not. She reports she did travel recently to [place] driving there 10 days ago and returning yesterday, a 6-hour one-way trip. She denies any chest pain, shortness of breath at this time. Home Medications Medication Instructions Recorded Confirmed Type cholecalciferol (vitamin D3) 25 25 mcg PO QAM 11/06/19 07/18/23 History mcg (1,000 unit) tablet (Vitamin D3) multivitamin 1 tab PO QAM 11/06/19 07/18/23 History albuterol sulfate 90 mcg/actuation 2 puff inhalation Q6H PRN 06/29/21 07/18/23 Rx aerosol inhaler shortness of breath or wheezing #18 grams aspirin 81 mg tablet,delayed 81 mg PO DAILY 07/02/22 07/18/23 History release methenamine hippurate 1 gram 1 g PO BID 90 days #180 tabs 08/16/22 07/18/23 Rx tablet (Hiprex) tolterodine 4 mg capsule,extended 4 mg PO DAILY #90 caps 10/11/22 07/18/23 Rx release 24 hr magnesium 200 mg tablet 200 mg PO DAILY 11/14/22 07/18/23 History atorvastatin 80 mg tablet 80 mg PO DAILY #90 tabs 02/20/23 07/18/23 Rx clopidogrel 75 mg tablet (Plavix) 75 mg PO DAILY #90 tabs 02/20/23 07/18/23 Rx estradiol 0.01% (0.1 mg/gram) 1 g vaginal 2XWK #42.5 grams 03/12/23 07/18/23 Rx vaginal cream (Estrace) meclizine 25 mg tablet 25 mg PO TID PRN dizziness 03/14/23 07/18/23 History diltiazem HCl 120 mg 120 mg PO DAILY #90 caps 03/26/23 07/18/23 Rx capsule,extended release 12 hr gabapentin 100 mg capsule 200 mg (2 x 100 mg) PO HS #60 caps 04/26/23 07/18/23 Rx azelastine 137 mcg (0.1 %) nasal 2 spray intranasal DAILY 07/18/23 07/18/23 History spray aerosol tavaborole 5 % topical solution 1 applic topical DAILY 07/18/23 07/18/23 History with applicator Allergies Allergy/AdvReac Type Severity Reaction Status Date / Time azithromycin Allergy Severe Itching Verified 06/26/23 11:48 [From Zithromax Z-Oleg] oxycodone Allergy Severe Delirium Verified 06/26/23 11:48 meperidine AdvReac Severe DIFFICULTY Verified 06/26/23 11:48 WAKING celecoxib [From Celebrex] AdvReac Intermediate lightheaded, Verified 06/26/23 11:48 tingling ciprofloxacin AdvReac Intermediate Arthalgia, Verified 06/26/23 11:48 myalgia hydrocodone AdvReac Intermediate Anxiety Verified 06/26/23 11:48 kenalog Allergy Mild Itching Uncoded 06/26/23 11:48 Past Med/Surg History Problem List (Updated 07/18/23 @ 15:50 by FRANCHESCA Tolentino) Lumbar back pain (Acute) Lumbar spondylosis Sciatica (Acute) Fall Hypothyroidism 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) Lumbar spinal stenosis Scoliosis of lumbar region due to degenerative disease of spine in adult Degenerative spondylolisthesis L3-4 Disc degeneration, lumbar Rotator cuff tear Pelvic floor relaxation Leg pain, bilateral Encounter for interrogation of cardiac recorder Cerebrovascular accident (CVA) Neuropathic pain H/O: stroke Glenohumeral arthritis Anxiety Hyperlipidemia Gait abnormality Incontinence Balance disorder Weakness Status post stroke Arthritis of left hip 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 Asthma Lumbar radiculopathy Encounter for pre-operative examination Hypertension (Chronic) Dyslipidemia Urinary incontinence (Chronic) Chronic bronchitis (Chronic) Allergic rhinitis (Chronic) Constipation (Chronic) Mixed incontinence urge and stress History of recurrent UTI (urinary tract infection) (Chronic) Hyperglobulinemia Recurrent UTI (Chronic) Hyperglycemia Vaginal atrophy Hypercholesterolemia Osteoarthritis (Acute) Bilateral shoulder pain (Chronic) Paresthesias in left hand (Chronic) Bilateral foot pain (Chronic) Paresthesia of both hands left worse than right Cervical radiculopathy Neuropathy (Chronic) Paresthesia of both feet Lumbar back pain with radiculopathy affecting lower extremity Left hip pain Venous insufficiency Hand pain, left Left knee pain High triglycerides Osteoarthritis of right hip Low back pain History of bilateral knee replacement Arthritis of left hip Medical History Chronic rhinitis Neuropathy Bilateral feet - on gabapentin Does have ongoing left sided "nerve pain" - will be following neuro 10/04 Hx of herpes zoster Approximately 2018- has had nerve pain since that time Varicose veins of bilateral lower extremities with other complications S/p left leg ablation of GSV as well as stab phlebectomies of left LE 1.5 years ago while in [place] Follows with Dr Manzanares- last seen 08/2021- follow up PRN Actinic keratosis Rotator cuff dysfunction left Senile lentigo Varicose veins of anus or rectum No issues per patient Surgical History History of colonoscopy History of carpal tunnel surgery of left wrist Hx of hernia repair H/O: hysterectomy Family History Father Bladder cancer Deafness Mother Hypertension Grandmother (Maternal) Diabetes Social History Smoking Status: Former smoker Age Started Using Tobacco: 23; Age Quit Using Tobacco: 27; Second Hand Exposure: No; Do You Dip or Chew Tobacco: No; Hx Alcohol Use: No Hx Substance Use: No Preferred Language: Korean Communication Ability: Effective 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 Systems Inspector Required: No Beliefs That Will Affect Care: None marital status: / Current Living Situation: Spouse and Family Feels Safe at Home: Yes caffeine: Yes (2 cups in the AM) Dental Care, Regularly: Yes Seatbelt Use: always Assistive Devices: Walker Physical Exam Vital Signs Vital Signs - 24 hr 07/18/23 11:42 Temperature 37 C Temperature Source Temporal Artery Scan Pulse Rate 91 H Pulse Rhythm Regular Pulse Strength Normal Respiratory Rate 20 Respiratory Effort / Characteristics Non-Labored Spontaneous Respiratory Depth Normal Blood Pressure 185/104 H Blood Pressure Mean 131 Blood Pressure Position Sitting Pulse Oximetry 96 Oxygen Delivery Method Room Air Sepsis Recent Fever Within 48 Hours No Sepsis New/Unexplained Change in Mental Status N/A Sepsis Action Taken by Nursing No Action Required VITALS: Vitals are noted on the nurse's note and reviewed by myself. Vital signs stable. GENERAL: 83-year-old female, in mild distress, nondiaphoretic, well-developed well-nourished. SKIN: The skin was without rashes, erythema, edema, or bruising. HEAD: Normocephalic atraumatic. HEART: Regular rate and rhythm without murmurs gallops or rubs. LUNGS: Clear to auscultation bilaterally without wheezes, rales or rhonchi. No retractions or accessory muscle use. ABDOMEN: Positive bowel sounds x 4. Soft, nontender, without masses or organomegaly. Garces sign negative. No guarding or rebound tenderness. MUSCULOSKELETAL: Tenderness to palpation lower lumbar spinous process, paraspinal muscle spasm to the left of the lower lumbar spine. Pain elicited with straight leg raise, strength 5/5, distal pulses intact. NEURO: Patient was alert and oriented to person place and time. No focal neurological deficits. Course Administered Medications Discontinued Medications Dexamethasone Sodium Phosphate (DexamethasonePf 10 Mg/Ml Vial) 10 mg IM NOW ONE Stop: 07/18/23 12:14 Last Admin: 07/18/23 12:31 Dose: 10 mg Documented By: ANNELISE Lidocaine (Lidocaine 5% 1 Patch) 1 patch TD NOW STA Stop: 07/18/23 12:14 Last Admin: 07/18/23 12:31 Dose: 1 patch Documented By: ANNELISE Morphine Sulfate (Morphine Sulfate 2 Mg/Ml Carp) 2 mg IV NOW STA Stop: 07/18/23 14:03 Last Admin: 07/18/23 14:13 Dose: 2 mg Documented By: AUBREY Ondansetron HCl (Ondansetron Inj 2 Mg/Ml 2 Ml Vial) 4 mg IV NOW STA Stop: 07/18/23 14:03 Last Admin: 07/18/23 14:13 Dose: 4 mg Documented By: AUBREY Medical Decision Making Differential Diagnosis Musculoskeletal, disc herniation, fracture, metastatic disease, cord compression, discitis, sciatica, cauda equina, as well as other pathologies. Medical Records Attestation: I reviewed the patient's medical records. Home Medications Current Medication List: was personally reviewed by me Laboratory Data Attestation: I reviewed the patient's lab results. No leukocytosis, stable hemoglobin and hematocrit, no significant electrolyte abnormalities. 07/18/23 14:18 07/18/23 14:18 Lab Results 07/18/23 Range/Units 14:18 WBC 6.21 (4.8-10.8) K/ul RBC 5.41 H (4.20-5.40) M/uL Hgb 14.7 (12.0-16.0) g/dl Hct 44.6 (37.0-47.0) % MCV 82.4 (80.0-100.0) fL MCH 27.2 (25.0-34.0) pg MCHC 33.0 (32.0-36.0) g/dL RDW Std Deviation 45.9 (36.4-46.3) fL RDW Coeff of Scarlet 15.2 H (11.5-14.5) % Plt Count 300 (130-400) K/uL MPV 10.4 (9.4-12.4) fL Immature Gran % (Auto) 0.2 % Neut % (Auto) 81.0 % Lymph % (Auto) 12.9 % [place] % (Auto) 3.5 % Eos % (Auto) 1.8 % Baso % (Auto) 0.6 % Neut # (Auto) 5.03 (1.40-6.50) K/uL Lymph # (Auto) 0.80 L (1.20-3.40) K/uL [place] # (Auto) 0.22 (0.11-0.59) K/uL Eos # (Auto) 0.11 (0.00-0.50) K/uL Baso # (Auto) 0.04 (0.00-0.20) K/uL Immature Gran # (Auto) 0.01 (0.01-0.20) K/uL Sodium TNP Potassium TNP Chloride 106 (98-107) mmol/L Carbon Dioxide 26 (21-32) mmol/L Anion Gap TNP BUN 12 (6-23) mg/dl Creatinine 0.63 (0.6-1.2) mg/dl Est Cr Clr Drug Dosing Not Reportable Est GFR ( Amer) 97.5 ml/min Est GFR (Non-Af Amer) 84.1 ml/min BUN/Creatinine Ratio 19.0 (10-20) Glucose 98 (70-99(Fasting)) mg/dl Calcium 10.3 (8.6-10.3) mg/dl Total Bilirubin 0.5 (0.2-1.0) mg/dl AST TNP ALT 18 (7-52) U/L Alkaline Phosphatase 85 (34-104) U/L Total Protein 7.8 (6.0-8.3) gm/dl Albumin 4.4 (3.4-5.0) gm/dl Globulin 3.4 (2.5-4.0) gm/dl Albumin/Globulin Ratio 1.3 (0.9-2) Imaging Data Radiologist's Impression: Lumbar Spine CT 07/18/23 12:[address] DOSE: 998.21 mGy.cm HISTORY: lumbar pain with radiculopathy TECHNIQUE: Multiaxial CT images of the lumbar spine were performed and reformatted in the sagittal and coronal plane without the use of contrast. A dose lowering technique was utilized adhering to the principles of ALARA. COMPARISON: Lumbar spine MRI 10/09/2022. FINDINGS: No fractures within the lumbar spine. The visualized sacrum is intact. There is 4 mm of anterolisthesis of L3 on L4, unchanged. Moderate to severe disc space narrowing throughout the lumbar spine. This is also similar to the prior study. Moderate to severe facet degenerative changes. Paravertebral soft tissues are unremarkable. There are few punctate bilateral renal calculi. No hydronephrosis. Suboptimal evaluation the central canal due to the CT technique. However, there is multilevel severe central canal narrowing at L2-L3 and L3-L4 again noted. There is moderate central canal narrowing throughout the remaining lumbar spine. IMPRESSION: 1. No fractures within the lumbar spine. 2. Advanced multilevel lumbar spondylosis most pronounced at the L2-L3 and L3-L4 levels demonstrating severe central canal narrowing. This is likely similar to the prior lumbar spine MRI. 3. Bilateral nephrolithiasis. No hydronephrosis. ACT 112: Negative or not required by law. Electronically signed by: Frank Kamara M.D. 07/18/2023 1:03 PM Venous Doppler Study 07/18/23 12:13 ULTRASOUND LEFT LOWER EXTREMITY VENOUS CLINICAL HISTORY: Left leg pain. COMPARISON STUDY: Left lower extremity venous ultrasound dated 02/03/2020 TECHNIQUE: Real-time, grayscale, and color Doppler sonography of the deep veins of the left lower extremity was performed from the inguinal crease to the calf. Compression and augmentation were utilized. FINDINGS: There is no sonographic evidence of deep venous thrombosis identified in the left lower extremity. The common femoral, superficial femoral, and popliteal veins are patent and normally compressible. The greater saphenous vein and the profunda femoris vein at the junction with the common femoral vein are clear. The visualized calf veins are patent. IMPRESSION: There is no sonographic evidence of deep venous thrombosis identified in the left lower extremity. ACT 112: Negative or not required by law. Electronically signed by: Nirmal Lora M.D. 07/18/2023 1:45 PM Blood Pressure Blood Pressure Findings: Low blood pressure Blood Pressure Disposition: elevated BP felt to be situational MDM Narrative The patient is an 83-year-old female who arrives to the emergency department for the above-stated complaint. Upon examination the patient appears to be in significant pain, she has unable to perform some of the examination due to severe pain. Due to her history I felt that advanced imaging was required, CT imaging of the lumbar spine was obtained which showed advanced multilevel lumbar spondylosis most pronounced at the L2-L3 and L3-L4 levels demonstrating severe central canal narrowing. This is likely similar to the prior lumbar spine MRI. The patient was provided topical Lidoderm, and IM dexamethasone which did not relieve her pain. A saline lock was established, CBC, CMP were obtained which showed no leukocytosis, stable hemoglobin and hematocrit, and no significant electrolyte abnormalities. IV 2 mg of morphine as well as 4 mg of Zofran was provided to the patient for pain control. Upon reassessment the patient reported severe pain still, with an inability to ambulate. Orthopedic spine consult was deferred at this time, as the patient has already consulted with Dr. Ursula danielle and preferred not to use his services if possible. Admission was warranted for ambulatory dysfunction and pain control at this time. I contacted case management who facilitated contact with the [facility] hospitalist group. Dr. Garnica has agreed to accept the patient under his care, please refer to his documentation for further patient care. The patient's case was discussed with Dr. Ríos, who agreed with my evaluation and treatment plan. Impression & Plan Sciatica, Lumbar back pain Discharge Plan Visit Data Chief Complaint: Back Injury/Pain Stated Complaint: BACK AND DOWN MY LEGS PAIN ED Provider: Jones Ríos ED Midlevel Provider: Juli Contreras Discharge Problem: Sciatica, Lumbar back pain Forms Stand Alone Forms: My [facility] Prescriptions Prescriptions: No Action magnesium 200 mg tablet 200 mg PO DAILY albuterol sulfate 90 mcg/actuation HFA aerosol inhaler 2 puff inhalation Q6H PRN (Reason: shortness of breath or wheezing) Qty: 18 1RF tolterodine 4 mg capsule,extended release 24hr 4 mg PO DAILY Qty: 90 3RF clopidogrel [Plavix] 75 mg tablet 75 mg PO DAILY Qty: 90 1RF atorvastatin 80 mg tablet 80 mg PO DAILY Qty: 90 0RF estradiol [Estrace] 0.01 % (0.1 mg/gram) cream 1 g vaginal 2XWK Qty: 42.5 0RF Rx Instructions: Apply a pea-sized amount to vaginal opening two times per week diltiazem HCl 120 mg capsule,extended release 12 hr 120 mg PO DAILY Qty: 90 1RF gabapentin 100 mg capsule 200 mg PO HS Qty: 60 3RF methenamine hippurate [Hiprex] 1 gram tablet 1 g PO BID 90 Days Qty: 180 3RF aspirin 81 mg tablet,delayed release (DR/EC) 81 mg PO DAILY meclizine 25 mg tablet 25 mg PO TID PRN (Reason: dizziness) cholecalciferol (vitamin D3) [Vitamin D3] 25 mcg (1,000 unit) Tablet 25 mcg PO QAM multivitamin Tablet 1 tab PO QAM azelastine 137 mcg (0.1 %) aerosol,spray 2 spray INTRANASAL DAILY tavaborole 5 % solution with applicator 1 applic TOPICAL DAILY Rx Instructions: apply to toenails for 6 months Referrals Referrals: Andres Garcia MD [Primary Care Provider] - Discharge Problem: Sciatica Qualifiers: Laterality: left Qualified Code(s): M54.32 - Sciatica, left side
[2023-07-18] MEDS: LIDOCAINE 5% 1 PATCH TD STA (12:31)
[2023-07-18] MEDS: dexAMETHasone**PF** 10 MG/ML VIAL IM ONE (12:31)
--- NOTE | 2023-07-18 13:04 | CT Scan Report ---
LUMBAR SPINE CT CT DOSE: 998.21 mGy.cm HISTORY: lumbar pain with radiculopathy TECHNIQUE: Multiaxial CT images of the lumbar spine were performed and reformatted in the sagittal an d coronal plane without the use of contrast. A dose lowering technique was utilized adhering to the principles of ALARA. COMPARISON: Lumbar spine MRI 10/09/2022. FINDINGS: No fractures within the lumbar spine. The visualized sacrum is intact. There is 4 mm of ant erolisthesis of L3 on L4, unchanged. Moderate to severe disc space narrowing throughout the lumbar sp ine. This is also similar to the prior study. Moderate to severe facet degenerative changes. Paravert ebral soft tissues are unremarkable. There are few punctate bilateral renal calculi. No hydronephrosi s. Suboptimal evaluation the central canal due to the CT technique. However, there is multilevel mickie re central canal narrowing at L2-L3 and L3-L4 again noted. There is moderate central canal narrowing throughout the remaining lumbar spine. IMPRESSION: 1. No fractures within the lumbar spine. 2. Advanced multilevel lumbar spondylosis most pronounced at the L2-L3 and L3-L4 levels demonstrating severe central canal narrowing. This is likely similar to the prior lumbar spine MRI. 3. Bilateral nephrolithiasis. No hydronephrosis. ACT 112: Negative or not required by law. Electronically signed by: Frank Kamara M.D. 07/18/2023 1:03 PM
--- NOTE | 2023-07-18 13:46 | Ultrasound Report ---
ULTRASOUND LEFT LOWER EXTREMITY VENOUS CLINICAL HISTORY: Left leg pain. COMPARISON STUDY: Left lower extremity venous ultrasound dated 02/03/2020 TECHNIQUE: Real-time, grayscale, and color Doppler sonography of the deep veins of the left lower ext remity was performed from the inguinal crease to the calf. Compression and augmentation were utilized . FINDINGS: There is no sonographic evidence of deep venous thrombosis identified in the left lower ext remity. The common femoral, superficial femoral, and popliteal veins are patent and normally compress ible. The greater saphenous vein and the profunda femoris vein at the junction with the common femora l vein are clear. The visualized calf veins are patent. IMPRESSION: There is no sonographic evidence of deep venous thrombosis identified in the left lower e xtremity. ACT 112: Negative or not required by law. Electronically signed by: Nirmal Lora M.D. 07/18/2023 1:45 PM
[2023-07-18] MEDS: MoRPHine SULFATE 2 MG/ML CARP IV STA (14:13)
[2023-07-18] MEDS: ONDANSETRON INJ 2 MG/ML 2 ML VIAL IV STA (14:13)
--- NOTE | 2023-07-18 14:42 | History & Physical Report ---
Date of Service July 18, 2023 Assessment & Plan (1) Lumbar spondylosis: Plan: Acute onset of lower back pain the morning of 07/17 with radiation down the left leg Lumbar spine CT revealed advanced multilevel lumbar spondylosis; severe central canal narrowing Pain control with acetaminophen and morphine as needed Lidocaine patch Orthospine consulted; note: Patient does not want surgery Patient has had epidural injections and seen pain management in the past, but this did not work for her A.m. CBC, BMP (2) Ambulatory dysfunction: Plan: Patient is having difficulty bearing weight on her left leg PT/OT evaluations appreciated Fall precautions (3) History of recurrent UTI (urinary tract infection): Plan: Patient does note a history of urinary incontinence, that became gradually worse after she had TIA 1 year ago UA ordered, pending No leukocytosis Continue methenamine hippurate (4) Low back pain: (5) Sciatica: Plan Disposition: Obs -admit to [facility] Full code Regular diet VTE PPx: Teds History of Present Illness Chief Complaint: Intractable lower back pain Primary Care Provider: Andres Garcia MD Stefanie is an 83-year-old female with PMH of low back pain, osteoarthritis, BCC, bilateral foot paresthesias, neuropathy, cervical radiculopathy, recurrent UTIs, mixed incontinence urge and stress, dyslipidemia, anxiety, stroke, and lumbar spine stenosis. She presented for lower back pain, inability to bear weight on left foot, and ambulatory dysfunction on 07/17. She has been having ongoing lower back pain, but slept in her recliner last night, and woke up this morning unable to put weight on her left leg. Of note, the patient was recently in [place] for a graduation, and did much more sitting than usual yesterday (i.e. sat in the car for [address] home). No recent injuries or trauma to the back, abdomen, or pelvis. She reports that she fell several months back, but no recent falls. She rates the pain in her lower back 10/10 at worst, and 8/10 after receiving pain medicine in the ED. She describes it as a dull, achy, constant pain that is exacerbated by movements. Radiation down her left buttocks and leg. Did not take any pain medicine before coming in. Patient took all of her regular morning medications; no recent change in medications. Last BM was this morning. She reports that the pain did not wake her from sleep; no fever; no history of back surgeries. She does note that she has had urinary incontinence for the past several years (worse after her TIA 1 year ago). She denies saddle anesthesia, or numbness or tingling in the groin, but is unsure if there is numbness and tingling in the left leg/foot. Patient denies smoking, consistent alcohol use, and tobacco use. Patient is hypertensive at 185/104 at time of admission. ED course: Lidocaine patch 5% Morphine sulfate 2 mg IV Dexamethasone 10 mg IV Zofran 4 mg IV ROS: Patient endorses lower back pain radiation down the left leg, dry cough, urinary incontinence (present for several years, but worse after her TIA), and possible numbness and tingling in her left leg. Patient denies fever, chills, night sweats, dizziness, lightheadedness, headache, chest pain, SOB, abdominal pain, N/V/D, change in urinary/bowel habits, blood in her urine or stool, fecal incontinence, or saddle anesthesia. Allergies Allergy/AdvReac Type Severity Reaction Status Date / Time azithromycin Allergy Severe Itching Verified 06/26/23 11:48 [From Zithromax Z-Oleg] oxycodone Allergy Severe Delirium Verified 06/26/23 11:48 meperidine AdvReac Severe DIFFICULTY Verified 06/26/23 11:48 WAKING celecoxib [From Celebrex] AdvReac Intermediate lightheaded, Verified 06/26/23 11:48 tingling ciprofloxacin AdvReac Intermediate Arthalgia, Verified 06/26/23 11:48 myalgia hydrocodone AdvReac Intermediate Anxiety Verified 06/26/23 11:48 kenalog Allergy Mild Itching Uncoded 06/26/23 11:48 Home Medications Medication Instructions Recorded Confirmed Type cholecalciferol (vitamin D3) 25 25 mcg PO QAM 11/06/19 07/18/23 History mcg (1,000 unit) tablet (Vitamin D3) multivitamin 1 tab PO QAM 11/06/19 07/18/23 History albuterol sulfate 90 mcg/actuation 2 puff inhalation Q6H PRN 06/29/21 07/18/23 Rx aerosol inhaler shortness of breath or wheezing #18 grams aspirin 81 mg tablet,delayed 81 mg PO DAILY 07/02/22 07/18/23 History release methenamine hippurate 1 gram 1 g PO BID 90 days #180 tabs 08/16/22 07/18/23 Rx tablet (Hiprex) tolterodine 4 mg capsule,extended 4 mg PO DAILY #90 caps 10/11/22 07/18/23 Rx release 24 hr magnesium 200 mg tablet 200 mg PO DAILY 11/14/22 07/18/23 History atorvastatin 80 mg tablet 80 mg PO DAILY #90 tabs 02/20/23 07/18/23 Rx clopidogrel 75 mg tablet (Plavix) 75 mg PO DAILY #90 tabs 02/20/23 07/18/23 Rx estradiol 0.01% (0.1 mg/gram) 1 g vaginal 2XWK #42.5 grams 03/12/23 07/18/23 Rx vaginal cream (Estrace) meclizine 25 mg tablet 25 mg PO TID PRN dizziness 03/14/23 07/18/23 History diltiazem HCl 120 mg 120 mg PO DAILY #90 caps 03/26/23 07/18/23 Rx capsule,extended release 12 hr gabapentin 100 mg capsule 200 mg (2 x 100 mg) PO HS #60 caps 04/26/23 07/18/23 Rx azelastine 137 mcg (0.1 %) nasal 2 spray intranasal DAILY 07/18/23 07/18/23 History spray aerosol tavaborole 5 % topical solution 1 applic topical DAILY 07/18/23 07/18/23 History with applicator Past Med/Surg History Problem List (Updated 07/18/23 @ 15:50 by FRANCHESCA Tolentino) Lumbar back pain (Acute) Lumbar spondylosis Sciatica (Acute) Fall Hypothyroidism 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) Lumbar spinal stenosis Scoliosis of lumbar region due to degenerative disease of spine in adult Degenerative spondylolisthesis L3-4 Disc degeneration, lumbar Rotator cuff tear Pelvic floor relaxation Leg pain, bilateral Encounter for interrogation of cardiac recorder Cerebrovascular accident (CVA) Neuropathic pain H/O: stroke Glenohumeral arthritis Anxiety Hyperlipidemia Gait abnormality Incontinence Balance disorder Weakness Status post stroke Arthritis of left hip 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 Asthma Lumbar radiculopathy Encounter for pre-operative examination Hypertension (Chronic) Dyslipidemia Urinary incontinence (Chronic) Chronic bronchitis (Chronic) Allergic rhinitis (Chronic) Constipation (Chronic) Mixed incontinence urge and stress History of recurrent UTI (urinary tract infection) (Chronic) Hyperglobulinemia Recurrent UTI (Chronic) Hyperglycemia Vaginal atrophy Hypercholesterolemia Osteoarthritis (Acute) Bilateral shoulder pain (Chronic) Paresthesias in left hand (Chronic) Bilateral foot pain (Chronic) Paresthesia of both hands left worse than right Cervical radiculopathy Neuropathy (Chronic) Paresthesia of both feet Lumbar back pain with radiculopathy affecting lower extremity Left hip pain Venous insufficiency Hand pain, left Left knee pain High triglycerides Osteoarthritis of right hip Low back pain History of bilateral knee replacement Arthritis of left hip Medical History Chronic rhinitis Neuropathy Bilateral feet - on gabapentin Does have ongoing left sided "nerve pain" - will be following neuro 10/04 Hx of herpes zoster Approximately 2019- has had nerve pain since that time Varicose veins of bilateral lower extremities with other complications S/p left leg ablation of GSV as well as stab phlebectomies of left LE 1.5 years ago while in [place] Follows with Dr Manzanares- last seen 08/2021- follow up PRN Actinic keratosis Rotator cuff dysfunction left Senile lentigo Varicose veins of anus or rectum No issues per patient Surgical History History of colonoscopy History of carpal tunnel surgery of left wrist Hx of hernia repair H/O: hysterectomy Family History Father Bladder cancer Deafness Mother Hypertension Grandmother (Maternal) Diabetes Social History Smoking Status: Former smoker Tobacco Type: Cigarettes Age Started Using Tobacco: 23; Age Quit Using Tobacco: 27; Second Hand Exposure: No; Do You Dip or Chew Tobacco: No; Tobacco Cessation Education Requested by Patient: No Hx Alcohol Use: Yes Alcohol type: wine Alcohol type Comment: occasionally Hx Substance Use: No Preferred Language: Irish Communication Ability: Effective [employer]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 Beliefs That Will Affect Care: Adventist marital status: / Current Living Situation: Alone Other Information That Helps Us Care for You: No Feels Safe at Home: Yes Safety Concerns: Feels Safe At This Time caffeine: Yes (2 cups in the AM) Dental Care, Regularly: Yes Seatbelt Use: always Assistive Devices: Walker Review of Systems Review of Systems: See HPI above Physical Exam Physical Exam: General: Moderate physical distress secondary to pain; patient is actively moving in the room, and is unable to get comfortable; non-toxic appearing; well-nourished; cooperative; SpO2 to 96% on RA HEENT: normocephalic, atraumatic; no scleral icterus; PERRLA; moist mucus membrane; vision and hearing grossly intact Neck: supple; no lymphadenopathy; trachea midline Skin: warm, dry without signs of tenting; no cyanosis; no rashes, bruising, lesions, or erythema noted CV: chest wall NTP; RRR; S1/S2 normal; no murmurs/rubs/gallops; pulses intact and symmetric at radial, DP, and PT Lungs: no acute respiratory distress; symmetrical chest wall expansion; clear breath sounds across all lung almanzar w/o adventitious sounds; no wheezing ABD: Soft, NTP; BS present; no rebound/guarding; no distention Back: Upper and lower spine NTP, however sacrum just above the buttocks is TTP; no rashes, or bruising on the back or flanks MSK: no tics or fasciculations; no edema noted in the LEs b/l, nonerythematous; patient demonstrates ability to wiggle toes, plantarflex/dorsiflex, and stand up on her own; full active ROM of the lower extremities bilaterally Neuro: A&Ox3; flight of ideas; fluent speech; no focal deficits; sensation grossly intact in the LEs b/l Results & Data Results & Data Vital Signs (Past 12 Hours) Vital Signs Temp Pulse Resp BP Pulse Ox O2 Del Method 07/18/23 11:42 37 C 91 H 20 185/104 H 96 Room Air Laboratory Results Abnormal lab results 07/18/23 Range/Units 14:18 RBC 5.41 H (4.20-5.40) M/uL RDW Coeff of Scarlet 15.2 H (11.5-14.5) % Lymph # (Auto) 0.80 L (1.20-3.40) K/uL Diagnostic Findings Lumbar Spine CT 07/18/23 12:[address] DOSE: 998.21 mGy.cm HISTORY: lumbar pain with radiculopathy TECHNIQUE: Multiaxial CT images of the lumbar spine were performed and reformatted in the sagittal and coronal plane without the use of contrast. A dose lowering technique was utilized adhering to the principles of ALARA. COMPARISON: Lumbar spine MRI 10/09/2022. FINDINGS: No fractures within the lumbar spine. The visualized sacrum is intact. There is 4 mm of anterolisthesis of L3 on L4, unchanged. Moderate to severe disc space narrowing throughout the lumbar spine. This is also similar to the prior study. Moderate to severe facet degenerative changes. Paravertebral soft tissues are unremarkable. There are few punctate bilateral renal calculi. No hydronephrosis. Suboptimal evaluation the central canal due to the CT technique. However, there is multilevel severe central canal narrowing at L2-L3 and L3-L4 again noted. There is moderate central canal narrowing throughout the remaining lumbar spine. IMPRESSION: 1. No fractures within the lumbar spine. 2. Advanced multilevel lumbar spondylosis most pronounced at the L2-L3 and L3-L4 levels demonstrating severe central canal narrowing. This is likely similar to the prior lumbar spine MRI. 3. Bilateral nephrolithiasis. No hydronephrosis. ACT 112: Negative or not required by law. Electronically signed by: Frank Kamara M.D. 07/18/2023 1:03 PM Venous Doppler Study 07/18/23 12:13 ULTRASOUND LEFT LOWER EXTREMITY VENOUS CLINICAL HISTORY: Left leg pain. COMPARISON STUDY: Left lower extremity venous ultrasound dated 02/03/2020 TECHNIQUE: Real-time, grayscale, and color Doppler sonography of the deep veins of the left lower extremity was performed from the inguinal crease to the calf. Compression and augmentation were utilized. FINDINGS: There is no sonographic evidence of deep venous thrombosis identified in the left lower extremity. The common femoral, superficial femoral, and poplit eal veins are patent and normally compressible. The greater saphenous vein and the profunda femoris vein at the junction with the common femoral vein are clear. The visualized calf veins are patent. IMPRESSION: There is no sonographic evidence of deep venous thrombosis identified in the left lower extremity. ACT 112: Negative or not required by law. Electronically signed by: Nirmal Lora M.D. 07/18/2023 1:45 PM Code Status & VTE Plan Code Status Full code VTE Prophylaxis Plan VTE Prophylaxis will be ordered: Yes PG Care Time/CCT Total # of Minutes Spent Total Time Spent with Patient: Total time spent is greater than 50% in coordination of care (as documented) at patient's floor/unit and/or counseling patient: Coding [place] [address] INT INP/OBS CARE 2/55MIN Patient Type Established History Comprehensive Exam Comprehensive Medical Decision Making Moderate Complexity Diagnoses Lumbar spondylosis M47.816 Ambulatory dysfunction R26.2 History of recurrent UTI (urinary tract infection) Z87.440 Low back pain M54.50 Sciatica M54.30
[2023-07-18 14:50] LABS: Basophils # (auto) 0.04 K/uL (0.00-0.20); Basophils % (auto) 0.6 %; Eosinophils # (auto) 0.11 K/uL (0.00-0.50); Eosinophils % (auto) 1.8 %; Hematocrit (blood only) 44.6 % (37.0-47.0); Hemoglobin 14.7 g/dl (12.0-16.0); Immature Granulocytes # (auto) 0.01 K/uL (0.01-0.20); Immature Granulocytes % (auto) 0.2 %; Lymphocytes % (auto) 12.9 %; Mean Corpuscular Hemoglobin 27.2 pg (25.0-34.0); Mean Corpuscular Volume 82.4 fL (80.0-100.0); Mean Platelet Volume 10.4 fL (9.4-12.4); Monocytes # (auto) 0.22 K/uL (0.11-0.59); Monocytes % (auto) 3.5 %; Neutrophils # (auto) 5.03 K/uL (1.40-6.50); Platelet Count 300 K/uL (130-400); RDW Coefficient of Variation 15.2 % (11.5-14.5); RDW Standard Deviation 45.9 fL (36.4-46.3); Red Blood Count 5.41 M/uL (4.20-5.40); White Blood Count 6.21 K/ul (4.8-10.8)
[2023-07-18 15:28] LABS: Alanine Aminotransferase 18 U/L (7-52); Albumin Globulin Ratio 1.3 (0.9-2); Albumin Level 4.4 gm/dl (3.4-5.0); Alkaline Phosphatase 85 U/L (34-104); Bilirubin,Total 0.5 mg/dl (0.2-1.0); Blood Urea Nitrogen 12 mg/dl (6-23); Calcium 10.3 mg/dl (8.6-10.3); Carbon Dioxide 26 mmol/L (21-32); Chloride 106 mmol/L (98-107); Est GFR (African American) 97.5 ml/min; Est GFR (Non-African American) 84.1 ml/min; Globulin 3.4 gm/dl (2.5-4.0); Glucose 98 mg/dl (70-99(Fasting)); Total Protein 7.8 gm/dl (6.0-8.3)
[2023-07-18 16:25] LABS: Potassium 3.5 mmol/L (3.5-5.1)
[2023-07-18] MEDS ORDERED: MoRPHine SULFATE 2 MG/ML CARP IV PRN (17:28)
[2023-07-18] MEDS ORDERED: ALBUTEROL HFA 8 GM INHALER INH PRN (17:28)
[2023-07-18] MEDS ORDERED: ONDANSETRON INJ 2 MG/ML 2 ML VIAL IV PRN (17:28)
[2023-07-18] MEDS ORDERED: MECLIZINE HCL 25 MG TAB PO PRN (17:28)
[2023-07-18] MEDS: MoRPHine SULFATE 4 MG/ML 1 ML CARP\\VIAL IV PRN (18:12)
[2023-07-18] MEDS: GABAPENTIN 100 MG CAP PO SCH (21:14)
[2023-07-18] MEDS: METHENAMINE HIPPURATE 1 GM TAB PO SCH (21:15)
[2023-07-19] MEDS: MELATONIN 3 MG TAB PO PRN (00:39)
[2023-07-19 06:51] LABS: Basophils # (auto) 0.01 K/uL (0.00-0.20); Basophils % (auto) 0.1 %; Hematocrit (blood only) 42.5 % (37.0-47.0); Hemoglobin 14.3 g/dl (12.0-16.0); Immature Granulocytes # (auto) 0.03 K/uL (0.01-0.20); Immature Granulocytes % (auto) 0.4 %; Mean Corpuscular Hemoglobin 27.7 pg (25.0-34.0); Mean Corpuscular Hgb Conc 33.6 g/dL (32.0-36.0); Mean Corpuscular Volume 82.2 fL (80.0-100.0); Mean Platelet Volume 10.3 fL (9.4-12.4); Monocytes # (auto) 0.38 K/uL (0.11-0.59); Monocytes % (auto) 4.6 %; Neutrophils % (auto) 82.9 %; Platelet Count 288 K/uL (130-400); RDW Coefficient of Variation 15.1 % (11.5-14.5); RDW Standard Deviation 45.6 fL (36.4-46.3); Red Blood Count 5.17 M/uL (4.20-5.40); White Blood Count 8.32 K/ul (4.8-10.8)
[2023-07-19 07:08] LABS: Anion Gap 7 (3-11); BUN Creatinine Ratio 26.2 (10-20); Blood Urea Nitrogen 17 mg/dl (6-23); Calcium 10.1 mg/dl (8.6-10.3); Carbon Dioxide 25 mmol/L (21-32); Chloride 106 mmol/L (98-107); Est GFR (African American) 96.5 ml/min; Est GFR (Non-African American) 83.3 ml/min; Glucose 135 mg/dl (70-99(Fasting)); Potassium 4.2 mmol/L (3.5-5.1); Sodium 138 mmol/L (136-145)
[2023-07-19] MEDS: ATORVASTATIN 40 MG TAB PO SCH (08:30)
[2023-07-19] MEDS: ASPIRIN 81 MG ECTAB PO SCH (08:30)
[2023-07-19] MEDS: CLOPIDOGREL BISULFATE 75 MG TAB PO SCH (08:31)
[2023-07-19] MEDS: OXYBUTYNIN CHLORIDE XL 5 MG TABCR PO SCH (08:31)
[2023-07-19] MEDS: AZELASTINE HCL 0.1% NASAL 200 SPRAYS/27,400 MCG BTL SCH (08:31)
[2023-07-19] MEDS: dilTIAZem HCL 120 MG CAPCR PO SCH (08:32)
[2023-07-19] MEDS: MAGNESIUM OXIDE 400 MG TAB PO SCH (08:32)
[2023-07-19] MEDS: LIDOCAINE 5% 1 PATCH TD SCH (08:33)
[2023-07-19 10:45] LABS: Appearance Urine Clear (Clear); Bilirubin Urine Negative (Negative); Blood Urine Negative (Negative); Color Urine Yellow; Glucose Urine UA Negative (Negative); Ketones Urine Negative (Negative); Leukocyte Esterase Urine Negative (Negative); Nitrite Urine Negative (Negative); Protein Urine Negative (Negative); Specific Gravity Urine 1.015 (1.000-1.030); Urobilinogen Urine Negative (Negative)
[2023-07-19] MEDS: ACETAMINOPHEN 325 MG TAB PO PRN (14:45)
--- NOTE | 2023-07-19 16:36 | Orthopedic Consultation ---
Date of Service July 19, 2023 History of Present Illness Reason for Consultation: Low back pain and lower extremity symptoms. Requesting Physician: . Attending Physician: Mert Garcia MD 83-year-old female known to me from prior office visit known to have multilevel lumbar stenosis and disc degeneration. Patient was admitted due to exacerbation of her symptoms. The patient relates that she was to [place] for a variety of the events seen her grandchildren either graduate or performing baseball games. She has found that over the last several months she was having difficulty sleeping in the bed and has had success with a recliner but that has had less effectiveness recently. The other day, causing this admission, she had severe pain in the lower back radiating to her left lower leg. She reports today that is improved, upon evaluation this morning, she is up ambulating using a walker. Exam reveals the patient indicate pain in the left lumbosacral junction and across the lower lumbar spine. This is the main area of symptoms as far as the low back pain, radicular symptoms were more so on the left leg reported today, but she has intact EHL strength and knee flexion extension strength though she does have a mildly positive straight leg raise bilaterally. LUMBAR SPINE CT July 18, 2023 CT DOSE: 998.21 mGy.cm HISTORY: lumbar pain with radiculopathy TECHNIQUE: Multiaxial CT images of the lumbar spine were performed and reformatted in the sagittal and coronal plane without the use of contrast. A dose lowering technique was utilized adhering to the principles of ALARA. COMPARISON: Lumbar spine MRI 10/09/2022. FINDINGS: No fractures within the lumbar spine. The visualized sacrum is intact. There is 4 mm of anterolisthesis of L3 on L4, unchanged. Moderate to severe disc space narrowing throughout the lumbar spine. This is also similar to the prior study. Moderate to severe facet degenerative changes. Paravertebral soft tissues are unremarkable. There are few punctate bilateral renal calculi. No hydronephrosis. Suboptimal evaluation the central canal due to the CT technique. However, there is multilevel severe central canal narrowing at L2-L3 and L3-L4 again noted. There is moderate central canal narrowing throughout the remaining lumbar spine. IMPRESSION: 1. No fractures within the lumbar spine. 2. Advanced multilevel lumbar spondylosis most pronounced at the L2-L3 and L3-L4 levels demonstrating severe central canal narrowing. This is likely similar to the prior lumbar spine MRI. 3. Bilateral nephrolithiasis. No hydronephrosis. Above CT scan images were reviewed, my separate interpretation reveals the patient to have the degenerative changes as noted also seen previously on the MRI from September 2022, worst at the L2-3 and L3-4 segments, but also present in the lateral recess region at L5-S1. Impression: Exacerbation of lumbar axial and radicular symptoms, improved now in the morning. Plan: Today I talk with the patient, I related to her that she should mobilize with physical therapy now that her pain is improved and as soon as she is able to do reasonable ambulation she can be discharged to home. She expressed to me her desire to avoid any lumbar surgery, on her previous visit to my office in 2022 I explained that a multilevel lumbar decompression I think would afford her significant relief but she wanted to avoid that if at all possible but pain management injections were failing to improve her symptoms. At this time I related to her that she should return to the office with a family member for rediscussion of the findings on the studies and consideration for potential surgical intervention, she was in agreement with this plan. Allergies Allergy/AdvReac Type Severity Reaction Status Date / Time azithromycin Allergy Severe Itching Verified 06/26/23 11:48 [From Zithromax Z-Oleg] oxycodone Allergy Severe Delirium Verified 06/26/23 11:48 meperidine AdvReac Severe DIFFICULTY Verified 06/26/23 11:48 WAKING celecoxib [From Celebrex] AdvReac Intermediate lightheaded, Verified 06/26/23 11 :48 tingling ciprofloxacin AdvReac Intermediate Arthalgia, Verified 06/26/23 11:48 myalgia hydrocodone AdvReac Intermediate Anxiety Verified 06/26/23 11:48 kenalog Allergy Mild Itching Uncoded 06/26/23 11:48 Home Medications Medication Instructions Recorded Confirmed Type cholecalciferol (vitamin D3) 25 25 mcg PO QAM 11/06/19 07/18/23 History mcg (1,000 unit) tablet (Vitamin D3) multivitamin 1 tab PO QAM 11/06/19 07/18/23 History albuterol sulfate 90 mcg/actuation 2 puff inhalation Q6H PRN 06/29/21 07/18/23 Rx aerosol inhaler shortness of breath or wheezing #18 grams aspirin 81 mg tablet,delayed 81 mg PO DAILY 07/02/22 07/18/23 History release methenamine hippurate 1 gram 1 g PO BID 90 days #180 tabs 08/16/22 07/18/23 Rx tablet (Hiprex) tolterodine 4 mg capsule,extended 4 mg PO DAILY #90 caps 10/11/22 07/18/23 Rx release 24 hr magnesium 200 mg tablet 200 mg PO DAILY 11/14/22 07/18/23 History atorvastatin 80 mg tablet 80 mg PO DAILY #90 tabs 02/20/23 07/18/23 Rx clopidogrel 75 mg tablet (Plavix) 75 mg PO DAILY #90 tabs 02/20/23 07/18/23 Rx estradiol 0.01% (0.1 mg/gram) 1 g vaginal 2XWK #42.5 grams 03/12/23 07/18/23 Rx vaginal cream (Estrace) meclizine 25 mg tablet 25 mg PO TID PRN dizziness 03/14/23 07/18/23 History diltiazem HCl 120 mg 120 mg PO DAILY #90 caps 03/26/23 07/18/23 Rx capsule,extended release 12 hr gabapentin 100 mg capsule 200 mg (2 x 100 mg) PO HS #60 caps 04/26/23 07/18/23 Rx azelastine 137 mcg (0.1 %) nasal 2 spray intranasal DAILY 07/18/23 07/18/23 History spray aerosol tavaborole 5 % topical solution 1 applic topical DAILY 07/18/23 07/18/23 History with applicator cyclobenzaprine 5 mg tablet 5 mg PO TID PRN muscle spasm / 07/19/23 Rx severe lower back pain #30 tabs Past Med/Surg History Problem List (Updated 07/18/23 @ 15:50 by FRANCHESCA Tolentino) Lumbar back pain (Acute) Lumbar spondylosis Sciatica (Acute) Fall Hypothyroidism 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) Lumbar spinal stenosis Scoliosis of lumbar region due to degenerative disease of spine in adult Degenerative spondylolisthesis L3-4 Disc degeneration, lumbar Rotator cuff tear Pelvic floor relaxation Leg pain, bilateral Encounter for interrogation of cardiac recorder Cerebrovascular accident (CVA) Neuropathic pain H/O: stroke Glenohumeral arthritis Anxiety Hyperlipidemia Gait abnormality Incontinence Balance disorder Weakness Status post stroke Arthritis of left hip 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 Asthma Lumbar radiculopathy Encounter for pre-operative examination Hypertension (Chronic) Dyslipidemia Urinary incontinence (Chronic) Chronic bronchitis (Chronic) Allergic rhinitis (Chronic) Constipation (Chronic) Mixed incontinence urge and stress History of recurrent UTI (urinary tract infection) (Chronic) Hyperglobulinemia Recurrent UTI (Chronic) Hyperglycemia Vaginal atrophy Hypercholesterolemia Osteoarthritis (Acute) Bilateral shoulder pain (Chronic) Paresthesias in left hand (Chronic) Bilateral foot pain (Chronic) Paresthesia of both hands left worse than right Cervical radiculopathy Neuropathy (Chronic) Paresthesia of both feet Lumbar back pain with radiculopathy affecting lower extremity Left hip pain Venous insufficiency Hand pain, left Left knee pain High triglycerides Osteoarthritis of right hip Low back pain History of bilateral knee replacement Arthritis of left hip Medical History Chronic rhinitis Neuropathy Bilateral feet - on gabapentin Does have ongoing left sided "nerve pain" - will be following neuro 10/04 Hx of herpes zoster Approximately 2018- has had nerve pain since that time Varicose veins of bilateral lower extremities with other complications S/p left leg ablation of GSV as well as stab phlebectomies of left LE 1.5 years ago while in [place] Follows with Dr Manzanares- last seen 08/2021- follow up PRN Actinic keratosis Rotator cuff dysfunction left Senile lentigo Varicose veins of anus or rectum No issues per patient Surgical History History of colonoscopy History of carpal tunnel surgery of left wrist Hx of hernia repair H/O: hysterectomy Family History Father Bladder cancer Deafness Mother Hypertension Grandmother (Maternal) Diabetes Social History Smoking Status: Former smoker Tobacco Type: Cigarettes Age Started Using Tobacco: 23; Age Quit Using Tobacco: 27; Second Hand Exposure: No; Do You Dip or Chew Tobacco: No; Hx Alcohol Use: Yes Alcohol type: wine Alcohol type Comment: occasionally Hx Substance Use: No Preferred Language: [place] Leonean Communication Ability: Effective Denitrator Required: No Beliefs That Will Affect Care: Cheondoism marital status: / Current Living Situation: Alone Feels Safe at Home: Yes caffeine: Yes (2 cups in the AM) Dental Care, Regularly: Yes Seatbelt Use: always Assistive Devices: Cane, Raised Toilet Seat and Walker Review of Systems All systems reviewed & are unremarkable except as noted in HPI & below. Physical Exam . Results & Data Results & Data Laboratory Results . Diagnostic Findings . PG Care Time/CCT Total # of Minutes Spent Total Time Spent with Patient: Total time spent is greater than 50% in coordination of care (as documented) at patient's floor/unit and/or counseling patient: Coding Level of Care Code 21904 IN/OBS CONSULT LVL 3,45M
--- NOTE | 2023-07-19 18:54 | Discharge Summary ---
Discharge Summary Date of Service July 19, 2023 Principal Dx & Hospital Course #1 = Principal Diagnosis (1) Lumbar spondylosis: Patient with history of multilevel lumbar stenosis and disc degeneration who presented with acute exacerbation of her symptoms. Acute onset of lower back pain the morning of 07/17 with radiation down the left leg. Patient relates this to recent trip to [place] where she was in a seated position for an extended period of time on the car ride home. Lumbar spine CT on admission revealed advanced multilevel lumbar spondylosis; severe central canal narrowing Patient has had epidural injections and seen pain management in the past, but reports this did not work for her Orthospine consulted, recommended follow-up in outpatient office to discuss surgical options. Morning of 07/19/2023, patient was ambulating around the room without difficulty and reported her pain was improved. Patient discharged with short course cyclobenzaprine to use as needed. (2) Ambulatory dysfunction: Patient had difficulty bearing weight on her left leg on admission due to radiating lumbar pain, resolved (3) History of recurrent UTI (urinary tract infection): Patient does note a history of urinary incontinence, that became gradually worse after she had TIA 1 year ago UA ordered, negative No leukocytosis Continue methenamine hippurate Plan CODE STATUS: Full code Notes For Next Care Provider Referral sent for follow-up appointment with Dr. Vergara, as well as second opinion with Dr. Hurt to discuss surgical options for chronic lower back pain. Medication Changes From Visit Patient given short course of cyclobenzaprine to use as needed Admission HPI Per Admitting Provider Stefanie is an 83-year-old female with PMH of low back pain, osteoarthritis, BCC, bilateral foot paresthesias, neuropathy, cervical radiculopathy, recurrent UTIs, mixed incontinence urge and stress, dyslipidemia, anxiety, stroke, and lumbar spine stenosis. She presented for lower back pain, inability to bear weight on left foot, and ambulatory dysfunction on 07/17. She has been having ongoing lower back pain, but slept in her recliner last night, and woke up this morning unable to put weight on her left leg. Of note, the patient was recently in [place] for a graduation, and did much more sitting than usual yesterday (i.e. sat in the car for [address] home). No recent injuries or trauma to the back, abdomen, or pelvis. She reports that she fell several months back, but no recent falls. She rates the pain in her lower back 10/10 at worst, and 8/10 after receiving pain medicine in the ED. She describes it as a dull, achy, constant pain that is exacerbated by movements. Radiation down her left buttocks and leg. Did not take any pain medicine before coming in. Patient took all of her regular morning medications; no recent change in medications. Last BM was this morning. She reports that the pain did not wake her from sleep; no fever; no history of back surgeries. She does note that she has had urinary incontinence for the past several years (worse after her TIA 1 year ago). She denies saddle anesthesia, or numbness or tingling in the groin, but is unsure if there is numbness and tingling in the left leg/foot. Patient denies smoking, consistent alcohol use, and tobacco use. Patient is hypertensive at 185/104 at time of admission. ED course: Lidocaine patch 5% Morphine sulfate 2 mg IV Dexamethasone 10 mg IV Zofran 4 mg IV ROS: Patient endorses lower back pain radiation down the left leg, dry cough, urinary incontinence (present for several years, but worse after her TIA), and possible numbness and tingling in her left leg. Patient denies fever, chills, night sweats, dizziness, lightheadedness, headache, chest pain, SOB, abdominal pain, N/V/D, change in urinary/bowel habits, blood in her urine or stool, fecal incontinence, or saddle anesthesia. Admission Exam Per Admitting Provider General: no acute distress; pleasant affect; non-toxic appearing; cachectic; cooperative; SPO2 96% on RA HEENT: normocephalic, atraumatic; no scleral icterus; PERRLA; moist mucus membrane; vision and hearing intact Neck: supple; no lymphadenopathy; trachea midline Skin: warm, dry without signs of tenting; no cyanosis; no rashes, bruising, lesions, or erythema noted CV: chest wall NTP; RRR; S1/S2 normal; no murmurs/rubs/gallops; pulses intact and symmetric at radial, DP, and PT Lungs: no acute respiratory distress; symmetrical chest wall expansion; clear breath sounds across all lung almanzar w/o adventitious sounds; no wheezing ABD: Soft, NTP; BS present; no rebound/guarding; no distention MSK: no active tremors; constant head nodding/shaking; no edema noted in the LEs b/l, nonerythematous; 5/5 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 Skin: The skin was without rashes, erythema, edema, or bruising. Cardiac: Regular rate and rhythm without murmurs gallops or rubs. Pulm: Clear to auscultation bilaterally without wheezes, rales or rhonchi. No retractions or accessory muscle use. Abdominal: Positive bowel sounds x 4. Soft, nontender, without masses or organomegaly. No guarding or rebound tenderness. Neuro: A&O x3. No focal neurological deficits. Updated Medication List Medication Instructions Recorded Confirmed Type cholecalciferol (vitamin D3) 25 25 mcg PO QAM 11/06/19 07/18/23 History mcg (1,000 unit) tablet (Vitamin D3) multivitamin 1 tab PO QAM 11/06/19 07/18/23 History albuterol sulfate 90 mcg/actuation 2 puff inhalation Q6H PRN 06/29/21 07/18/23 Rx aerosol inhaler shortness of breath or wheezing #18 grams aspirin 81 mg tablet,delayed 81 mg PO DAILY 07/02/22 07/18/23 History release methenamine hippurate 1 gram 1 g PO BID 90 days #180 tabs 08/16/22 07/18/23 Rx tablet (Hiprex) tolterodine 4 mg capsule,extended 4 mg PO DAILY #90 caps 10/11/22 07/18/23 Rx release 24 hr magnesium 200 mg tablet 200 mg PO DAILY 11/14/22 07/18/23 History atorvastatin 80 mg tablet 80 mg PO DAILY #90 tabs 02/20/23 07/18/23 Rx clopidogrel 75 mg tablet (Plavix) 75 mg PO DAILY #90 tabs 02/20/23 07/18/23 Rx estradiol 0.01% (0.1 mg/gram) 1 g vaginal 2XWK #42.5 grams 03/12/23 07/18/23 Rx vaginal cream (Estrace) meclizine 25 mg tablet 25 mg PO TID PRN dizziness 03/14/23 07/18/23 History diltiazem HCl 120 mg 120 mg PO DAILY #90 caps 03/26/23 07/18/23 Rx capsule,extended release 12 hr gabapentin 100 mg capsule 200 mg (2 x 100 mg) PO HS #60 caps 04/26/23 07/18/23 Rx azelastine 137 mcg (0.1 %) nasal 2 spray intranasal DAILY 07/18/23 07/18/23 History spray aerosol tavaborole 5 % topical solution 1 applic topical DAILY 07/18/23 07/18/23 History with applicator cyclobenzaprine 5 mg tablet 5 mg PO TID PRN muscle spasm / 07/19/23 Rx severe lower back pain #30 tabs Hospital Stay Data Consultations 07/18/23 14:35 ED Decision to Admit Stat 07/18/23 15:29 Consult Orthopedic Spine Surgery Routine Diagnostic Imagining Performed 07/18/23 12:13 CT lumbar spine wo con Stat US venous doppler LE LT Stat Pending Results Patient Have Any Pending Studies at Discharge: No Discharge Instructions Given to Patient (Per Discharging Provider) Mrs. Ponce, Theodore were admitted to the hospital due to the acute onset of your chronic lower back pain. The CT scan of your lumbar spine revealed advanced multi level lumbar spondylosis with severe central canal narrowing. This explains your lower back pain as well as the symptoms of pain radiating down your legs. You were seen by an orthospine surgeon, Dr. Vergara, while in the hospital, who recommended an outpatient follow-up appointment to discuss surgical options. Upon discharge from the hospital: * Take Tylenol 650 mg every 4 hours as needed for pain. Use this as your first- line pain medication. * Take cyclobenzaprine (a muscle relaxant) 5 mg three times daily as needed for severe pain. You can take 1 pill every 8 hours as needed. Sometimes this medication can make you drowsy; if you find that this is the case, I recommend utilizing Tylenol during the day and using this medicine at night. This prescription has been sent to the [facility] pharmacy on [facility]. * Follow-up with Dr. Vergara outpatient to discuss surgical options. His office will call you with an appointment date and time. * Follow-up with Dr. Hurt outpatient for a second opinion on surgical options. We have faxed his office all of the information that they need prior to the appointment. His office will call you with an appointment date and time. * Continue all other home medications as prescribed. Please return to the hospital if you experience any of the following: Severe worsening of your back pain, if your foot drags when you walk (foot drop), if you have new weakness, numbness, or pain in 1 or both arms or legs, loss of your bowel or bladder control, or numbness or tingling in the buttock or groin area. It was a pleasure taking care of you while you were in the hospital, Emma Golden PA-C Total Time Total Time Spent Total Time Spent (In Minutes): Greater than 30 minutes spent completing this discharge process including direct patient care, medication reconciliation, documentation, review of labs and images, and coordination of care. Coding Level of Care Code 44709 INP/OBS DISCH >30 MIN Diagnoses Lumbar spondylosis M47.816 Ambulatory dysfunction R26.2 History of recurrent UTI (urinary tract infection) Z87.440
== END 2023-07-19 15:45 | disposition home or self-care (01) ==
LOC: 3N 11:38 → ED 11:38 → SUATTDRO 15:26 → 3N 16:48

== ENCOUNTER 2024-03-02 08:59 | Inpatient (IN) ==
--- NOTE | 2024-03-02 09:34 | Emergency Department Note ---
Impression & Plan Dizziness, Acute UTI (urinary tract infection), Fall from standing ED Provider Note HISTORY OF PRESENT ILLNESS: Patient is an 83-year-old female presenting with dizziness and falls. Patient reports that she got up to go to the bathroom today at 1 AM when she got very dizzy and lost her balance and fell backwards into her recliner. She states that she normally sleeps in her recliner. States that she got up at 5 AM and got very dizzy again and lost her balance and landed, striking her head on a metal heater near her recliner. She denies any loss of consciousness. She does take Plavix for previous history of stroke. She denies any chest pain or shortness of breath with the dizziness episodes. She reports she just feels very unsteady and lightheaded. Denies any recent fevers. Denies any abdominal pain, nausea or vomiting. Denies any headache or changes in vision since the fall. Denies any numbness or tingling or weakness in her extremities. She does report over the last few days she has been having increased frequency of her urinary incontinence episodes. She denies any dysuria or hematuria. ROS: as above PHYSICAL EXAM: Constitutional: Patient appears in no acute distress. HENT: Head: Normocephalic. Hematoma to right posterior parietal and occipital region. Eyes: EOMI, PERRL Mouth/Throat: Mucous membranes moist. Neck: Trachea midline. Neck supple. No midline cervical spine tenderness to palpation. Cardiovascular: RRR, No murmurs, rubs or gallops. Intact distal pulses. Pulmonary/Chest: No respiratory distress. Breath sounds clear and equal bilaterally. No wheezes or rales. Abdominal: Abdomen soft, no tenderness, rebound or guarding. Musculoskeletal: No edema, tenderness or deformity noted. Skin: Warm and dry. No rash, erythema, pallor or cyanosis Psychiatric: Appropriate mood and affect for situation. Neurological: Alert and keenly responsive. Facies symmetric. Able to raise eyebrows, close eyes, smile, puff mouth, stick out tongue, move tongue left and right and raise palate symmetrically. Able to shrug shoulders. PERRLA. SILT to forehead below eye and at jawline. Can hear soft noise bilaterally. Good finger to nose. Strength 5/5 in bilateral upper and lower extremities. SILT throughout bilateral upper and lower extremities. MDM: - Vitals signs showed hypertension - History obtained via patient. History as above. - Chronic conditions affecting care: HLD; HTN; mixed incontinence urge and stress; recurrent UTI; hypothyroidism; VA - Differential diagnoses include, but are not limited to: CVA; intracranial hemorrhage; ACS; dysrhythmia; UTI; pneumonia; electrolyte abnormality - Order placed for continuous cardiac monitoring. At this time, monitor showed rate of 78 bpm with normal sinus rhythm, per my interpretation. - External medical records reviewed. Urology office visit note dated was reviewed. Patient has recurrent UTI history and is on methenamine. History of urinary incontinence being treated with tolterodine - EKG interpreted by myself showed normal sinus rhythm. Rate 79 bpm. QT 364. No acute ischemic changes. - Laboratory workup interpreted by myself showed normal WBC; normal PT/INR; stable electrolytes; normal troponin - CXR negative for pneumonia, per my interpretation - CT head wo contrast negative for acute pathology - UA showed evidence of infection. Given 2g IV rocephin - Discussion was had with casework supervisor about patient's case and need for admission - Hospitalist, Dr. Power, consulted for admission - Patient admitted to [facility]ist service for further evaluation and management. ASSESSMENT AND PLAN: Diagnosis: dizziness; acute UTI; fall from standing Plan: admit Past Med/Surg History Problem List (Updated 03/02/24 @ 12:09 by Shira Sumner MD) Fall from standing (Acute) Acute UTI (urinary tract infection) (Acute) Dizziness (Acute) Peripheral neuropathy Lumbar back pain (Acute) Lumbar spondylosis Sciatica (Acute) Fall Hypothyroidism 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) Lumbar spinal stenosis Scoliosis of lumbar region due to degenerative disease of spine in adult Degenerative spondylolisthesis L3-4 Disc degeneration, lumbar Rotator cuff tear Pelvic floor relaxation Leg pain, bilateral Encounter for interrogation of cardiac recorder Cerebrovascular accident (CVA) Neuropathic pain H/O: stroke Glenohumeral arthritis Anxiety Hyperlipidemia Gait abnormality Incontinence Balance disorder Weakness Status post stroke Arthritis of left hip 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 Asthma Lumbar radiculopathy Encounter for pre-operative examination Hypertension (Chronic) Dyslipidemia Urinary incontinence (Chronic) Chronic bronchitis (Chronic) Allergic rhinitis (Chronic) Constipation (Chronic) Mixed incontinence urge and stress History of recurrent UTI (urinary tract infection) (Chronic) Hyperglobulinemia Recurrent UTI (Chronic) Hyperglycemia Vaginal atrophy Hypercholesterolemia Osteoarthritis (Acute) Bilateral shoulder pain (Chronic) Paresthesias in left hand (Chronic) Bilateral foot pain (Chronic) Paresthesia of both hands left worse than right Cervical radiculopathy Neuropathy (Chronic) Paresthesia of both feet Lumbar back pain with radiculopathy affecting lower extremity Left hip pain Venous insufficiency Hand pain, left Left knee pain High triglycerides Osteoarthritis of right hip History of bilateral knee replacement Arthritis of left hip Medical History Chronic rhinitis Neuropathy Hx of herpes zoster Varicose veins of bilateral lower extremities with other complications Actinic keratosis Rotator cuff dysfunction Senile lentigo Varicose veins of anus or rectum Surgical History History of colonoscopy History of carpal tunnel surgery of left wrist Hx of hernia repair H/O: hysterectomy Family History Father Bladder cancer Deafness Mother Hypertension Grandmother (Maternal) Diabetes Social History Smoking Status: Former smoker Tobacco Type: Cigarettes Age Started Using Tobacco: 23; Age Quit Using Tobacco: 27; packs per day: 0; Second Hand Exposure: No; Do You Dip or Chew Tobacco: No; Hx Alcohol Use: Yes Alcohol type: wine Alcohol type Comment: occasionally Hx Substance Use: No Preferred Language: Indian Communication Ability: Effective Manager Technical Services Required: No Beliefs That Will Affect Care: Moravian marital status: / Current Living Situation: Alone Feels Safe at Home: Yes caffeine: Yes (2 cups in the AM) Dental Care, Regularly: Yes Seatbelt Use: always Assistive Devices: Cane, Raised Toilet Seat and Walker Allergies Allergies Allergy/AdvReac Type Severity Reaction Status Date / Time azithromycin Allergy Severe Itching Verified 01/14/24 11:10 [From Zithromax Z-Oleg] oxycodone Allergy Severe Delirium Verified 01/14/24 11:10 meperidine AdvReac Severe DIFFICULTY Verified 01/14/24 11:10 WAKING celecoxib [From Celebrex] AdvReac Intermediate lightheaded, Verified 01/14/24 11:10 tingling ciprofloxacin AdvReac Intermediate Arthalgia, Verified 01/14/24 11:10 myalgia hydrocodone AdvReac Intermediate Anxiety Verified 01/14/24 11:10 kenalog Allergy Mild Itching Uncoded 01/14/24 11:10 Home Meds Home Medications Medication Instructions Recorded Confirmed cholecalciferol (vitamin D3) 25 25 mcg PO QAM 11/06/19 03/02/24 mcg (1,000 unit) tablet (Vitamin D3) multivitamin 1 tab PO QAM 11/06/19 03/02/24 aspirin 81 mg tablet,delayed 81 mg PO DAILY 07/02/22 03/02/24 release magnesium 200 mg tablet 200 mg PO DAILY 11/14/22 03/02/24 azelastine 137 mcg (0.1 %) nasal 2 spray intranasal DAILY PRN Other 07/18/23 03/02/24 spray amoxicillin 500 mg capsule 2,000 mg PO UD PRN dental 03/02/24 03/02/24 appointment atorvastatin 80 mg tablet 80 mg PO DAILY 03/02/24 03/02/24 Previous Rx's Medication Instructions Recorded albuterol sulfate 90 mcg/actuation 2 puff inhalation Q6H PRN 06/29/21 aerosol inhaler shortness of breath or wheezing #18 grams methenamine hippurate 1 gram 1 g PO BID 90 days #180 tabs 08/22/23 tablet (Hiprex) tolterodine 4 mg capsule,extended 4 mg PO DAILY #90 caps 08/22/23 release 24 hr diltiazem HCl 120 mg 120 mg PO DAILY #90 caps 09/30/23 capsule,extended release 12 hr gabapentin 100 mg capsule 100 mg PO TID #90 caps 12/05/23 estradiol 0.01% (0.1 mg/gram) 1 g vaginal 2XWK #42.5 grams 01/16/24 vaginal cream (Estrace) clopidogrel 75 mg tablet (Plavix) 75 mg PO DAILY #90 tabs 02/14/24 Results & Data (ED) Vital Signs Vital Signs - 24 hr 03/02/24 09:06 03/02/24 09:25 03/02/24 09:30 Temperature 36.6 C Temperature Source Oral Pulse Rate 86 79 Pulse Rate from SpO2 Sensor 79 Respiratory Rate 20 17 Respiratory Effort / Characteristics Non-Labored Spontaneous Respiratory Depth Normal Respiratory Pattern Regular Blood Pressure 203/98 H 155/122 H Blood Pressure Mean 133 127 Pulse Oximetry 98 99 Oxygen Delivery Method Room Air Sepsis Recent Fever Within 48 Hours No Sepsis New/Unexplained Change in Mental Status N/A Sepsis Action Taken by Nursing No Action Required 03/02/24 09:31 03/02/24 09:33 03/02/24 09:42 Temperature Temperature Source Pulse Rate 82 77 Pulse Rate from SpO2 Sensor 78 Respiratory Rate 16 Respiratory Effort / Characteristics Respiratory Depth Respiratory Pattern Blood Pressure Blood Pressure Mean Pulse Oximetry 98 94 Oxygen Delivery Method Room Air Sepsis Recent Fever Within 48 Hours Sepsis New/Unexplained Change in Mental Status Sepsis Action Taken by Nursing 03/02/24 10:09 03/02/24 10:10 03/02/24 10:15 Temperature Temperature Source Pulse Rate 80 78 Pulse Rate from SpO2 Sensor 80 79 Respiratory Rate 12 14 Respiratory Effort / Characteristics Respiratory Depth Respiratory Pattern Blood Pressure 198/106 H Blood Pressure Mean 149 Pulse Oximetry 98 97 Oxygen Delivery Method Sepsis Recent Fever Within 48 Hours Sepsis New/Unexplained Change in Mental Status Sepsis Action Taken by Nursing Laboratory Data 03/02/24 09:25 03/02/24 09:25 Lab Results 03/02/24 03/02/24 Range/Units 09:25 10:09 WBC 7.36 (4.8-10.8) K/ul RBC 5.40 (4.20-5.40) M/uL Hgb 15.1 (12.0-16.0) g/dl Hct 45.7 (37.0-47.0) % MCV 84.6 (80.0-100.0) fL MCH 28.0 (25.0-34.0) pg MCHC 33.0 (32.0-36.0) g/dL RDW Std Deviation 47.6 H (36.4-46.3) fL RDW Coeff of Scarlet 15.5 H (11.5-14.5) % Plt Count 256 (130-400) K/uL MPV 10.4 (9.4-12.4) fL Immature Gran % (Auto) 0.1 % Neut % (Auto) 73.2 % Lymph % (Auto) 14.9 % [place] % (Auto) 8.6 % Eos % (Auto) 2.7 % Baso % (Auto) 0.5 % Neut # (Auto) 5.38 (1.40-6.50) K/uL Lymph # (Auto) 1.10 L (1.20-3.40) K/uL [place] # (Auto) 0.63 H (0.11-0.59) K/uL Eos # (Auto) 0.20 (0.00-0.50) K/uL Baso # (Auto) 0.04 (0.00-0.20) K/uL Immature Gran # (Auto) 0.01 (0.01-0.20) K/uL PT 10.2 (9.0-12.0) Seconds INR 0.9 (0.9-1.1) Sodium 140 (136-145) mmol/L Potassium 3.6 (3.5-5.1) mmol/L Chloride 105 (98-107) mmol/L Carbon Dioxide 29 (21-32) mmol/L Anion Gap 6 (3-11) BUN 15 (6-23) mg/dl Creatinine 0.60 (0.6-1.2) mg/dl Est Cr Clr Drug Dosing 80.5 ml/min eGFR 90.12 BUN/Creatinine Ratio 25.0 H (10-20) Glucose 83 (70-99(Fasting)) mg/dl Calcium 9.9 (8.6-10.3) mg/dl Magnesium 1.9 (1.7-2.4) mg/dl Total Bilirubin 0.6 (0.2-1.0) mg/dl AST 26 (13-39) U/L ALT 21 (7-52) U/L Alkaline Phosphatase 94 (34-104) U/L Troponin I High Sens 3.0 (0-14) pg/ml Total Protein 7.2 (6.0-8.3) gm/dl Albumin 4.4 (3.4-5.0) gm/dl Globulin 2.8 (2.5-4.0) gm/dl Albumin/Globulin Ratio 1.6 (0.9-2) Urine Color Yellow Urine Appearance Clear (Clear) Urine pH 8.0 H (4.5-7.5) Ur Specific [place] 1.004 (1.000-1.030) Urine Protein Negative (Negative) Urine Glucose (UA) Negative (Negative) Urine Ketones Negative (Negative) Urine Blood Negative (Negative) Urine Nitrite Negative (Negative) Urine Bilirubin Negative (Negative) Urine Urobilinogen Negative (Negative) Ur Leukocyte Esterase 1+ H (Negative) Urine WBC (Auto) 6-10 H (0-5) /hpf Urine RBC (Auto) 0-2 (0-2) /hpf U Hyaline Cast (Auto) 0-2 (0-2) /lpf U Epithel Cells (Auto) 0-2 (0-2) /hpf Urine Bacteria (Auto) 2+ H (None Seen) Adenovirus (PCR) Not Detected (NotDetected) B. pertussis DNA (PCR) Not Detected (NotDetected) B.parapertussis DNA PCR Not Detected (NotDetected) C. pneumoniae DNA (PCR) Not Detected (NotDetected) Coronavirus OC43 (PCR) Not Detected (NotDetected) Coronavirus HKU1 (PCR) Not Detected (NotDetected) Coronavirus 229E (PCR) Not Detected (NotDetected) SARS-CoV-2 (PCR) Not Detected (NotDetected) Coronavirus NL63 (PCR) Not Detected (NotDetected) Human Metapneumovir PCR Not Detected (NotDetected) Influenza Type A (PCR) Not Detected (NotDetected) Influenza Type B (PCR) Not Detected (NotDetected) M. pneumoniae (PCR) Not Detected (NotDetected) Parainfluenza 1 (PCR) Not Detected (NotDetected) Parainfluenza 2 (PCR) Not Detected (NotDetected) Parainfluenza 3 (PCR) Not Detected (NotDetected) Parainfluenza 4 (PCR) Not Detected (NotDetected) RSV (PCR) Not Detected (NotDetected) Entero/Rhino (PCR) Not Detected (NotDetected) Administered Medications Discontinued Medications Ceftriaxone Sodium (Rocephin) 2,000 mg in 50 mls @ 100 mls/hr IV NOW STA Stop: 03/02/24 11:32 Last Admin: 03/02/24 11:19 Dose: 100 mls/hr Documented By: NICK Imaging Data Radiologist's Impression: Chest X-Ray 03/02/24 09:31 XR chest 1V portable CLINICAL HISTORY: dizziness COMPARISON STUDY: Chest radiograph July 12, 2022. Chest CT September 02, 2017. FINDINGS: Left shoulder arthroplasty is incidentally noted. Lung volumes are normal. Lungs are clear. There is no pneumothorax or pleural effusion. Mild cardiomegaly is unchanged. Mediastinal contours are normal. There is no evidence for pulmonary edema. IMPRESSION: No acute cardiopulmonary findings. ACT 112: Negative or not required by law. Electronically signed by: Abel Leach M.D. 03/02/2024 10:[address] 03/02/24 09:31 CT head/brain wo con CLINICAL HISTORY: dizziness; fall; head strike Technique: Contiguous axial CT images of the head were acquired from the base of the skull to the vertex without intravenous contrast administration. Images were viewed in brain, subdural and bone windows. Automated dose lowering techniques and/or adjustment according to patient size were utilized for this exam. Comparison: Comparison is made to CT head 12/25/2022 Findings: The ventricles, basal cisterns, and cerebral sulci are normal. There is no acute intracranial hemorrhage or evidence of acute territorial infarction. Neither mass effect, shift of the midline structures, nor abnormal extra-axial fluid collections are shown. Imaged portions of the paranasal sinuses and mastoid air cells are clear. The orbits appear normal. There are no acute fractures of the calvaria or scalp swelling. Impression: No acute intracranial hemorrhage, no evidence of acute territorial infarction or other acute intracranial disease process. ACT 112: Negative or not required by law. Electronically signed by: Jose Armando Avelar M.D. 03/02/2024 10:02 AM Discharge Plan Visit Data Chief Complaint: Fall Stated Complaint: FALL, HIT HEAD HARD, IS ON PLAVIX ED Provider: Shira Sumner Discharge Problem: Dizziness, Acute UTI (urinary tract infection), Fall from standing Forms Stand Alone Forms: My [facility] Prescriptions Prescriptions: No Action magnesium 200 mg tablet 200 mg PO DAILY albuterol sulfate 90 mcg/actuation HFA aerosol inhaler 2 puff inhalation Q6H PRN (Reason: shortness of breath or wheezing) Qty: 18 1RF methenamine hippurate [Hiprex] 1 gram tablet 1 g PO BID 90 Days Qty: 180 3RF tolterodine 4 mg capsule,extended release 24hr 4 mg PO DAILY Qty: 90 3RF diltiazem HCl 120 mg capsule,extended release 12 hr 120 mg PO DAILY Qty: 90 1RF gabapentin 100 mg capsule 100 mg PO TID Qty: 90 2RF estradiol [Estrace] 0.01 % (0.1 mg/gram) cream 1 g vaginal 2XWK Qty: 42.5 0RF Rx Instructions: Apply a pea-sized amount to vaginal opening two times per week clopidogrel [Plavix] 75 mg tablet 75 mg PO DAILY Qty: 90 1RF aspirin 81 mg tablet,delayed release (DR/EC) 81 mg PO DAILY cholecalciferol (vitamin D3) [Vitamin D3] 25 mcg (1,000 unit) Tablet 25 mcg PO QAM multivitamin Tablet 1 tab PO QAM azelastine 137 mcg (0.1 %) aerosol,spray 2 spray INTRANASAL DAILY PRN (Reason: Other) amoxicillin 500 mg capsule 2,000 mg PO UD PRN (Reason: dental appointment) atorvastatin 80 mg tablet 80 mg PO DAILY Referrals Referrals: Andres Garcia MD [Primary Care Provider] -
[2024-03-02 09:54] LABS: Basophils # (auto) 0.04 K/uL (0.00-0.20); Basophils % (auto) 0.5 %; Eosinophils % (auto) 2.7 %; Hematocrit (blood only) 45.7 % (37.0-47.0); Hemoglobin 15.1 g/dl (12.0-16.0); Immature Granulocytes # (auto) 0.01 K/uL (0.01-0.20); Immature Granulocytes % (auto) 0.1 %; Lymphocytes % (auto) 14.9 %; Mean Corpuscular Volume 84.6 fL (80.0-100.0); Mean Platelet Volume 10.4 fL (9.4-12.4); Monocytes # (auto) 0.63 K/uL (0.11-0.59); Monocytes % (auto) 8.6 %; Neutrophils # (auto) 5.38 K/uL (1.40-6.50); Neutrophils % (auto) 73.2 %; Platelet Count 256 K/uL (130-400); RDW Coefficient of Variation 15.5 % (11.5-14.5); RDW Standard Deviation 47.6 fL (36.4-46.3); White Blood Count 7.36 K/ul (4.8-10.8)
--- NOTE | 2024-03-02 10:04 | CT Scan Report ---
CT head/brain wo con CLINICAL HISTORY: dizziness; fall; head strike Technique: Contiguous axial CT images of the head were acquired from the base of the skull to the ernestine tyler without intravenous contrast administration. Images were viewed in brain, subdural and bone windo ws. Automated dose lowering techniques and/or adjustment according to patient size were utilized for this exam. Comparison: Comparison is made to CT head 12/25/2022 Findings: The ventricles, basal cisterns, and cerebral sulci are normal. There is no acute intracranial hemorrh age or evidence of acute territorial infarction. Neither mass effect, shift of the midline structures , nor abnormal extra-axial fluid collections are shown. Imaged portions of the paranasal sinuses and mastoid air cells are clear. The orbits appear normal. There are no acute fractures of the calvaria or scalp swelling. Impression: No acute intracranial hemorrhage, no evidence of acute territorial infarction or other acute intracra nial disease process. ACT 112: Negative or not required by law. Electronically signed by: Jose Armando Avelar M.D. 03/02/2024 10:02 AM
[2024-03-02 10:09] LABS: Albumin Globulin Ratio 1.6 (0.9-2); Albumin Level 4.4 gm/dl (3.4-5.0); Bilirubin,Total 0.6 mg/dl (0.2-1.0); Calcium 9.9 mg/dl (8.6-10.3); Creatinine Clr Calc Pharmacy 80.5 ml/min; Globulin 2.8 gm/dl (2.5-4.0); Magnesium 1.9 mg/dl (1.7-2.4); Potassium 3.6 mmol/L (3.5-5.1); Total Protein 7.2 gm/dl (6.0-8.3)
--- NOTE | 2024-03-02 10:10 | XRay Report ---
XR chest 1V portable CLINICAL HISTORY: dizziness COMPARISON STUDY: Chest radiograph July 12, 2022. Chest CT September 02, 2017. FINDINGS: Left shoulder arthroplasty is incidentally noted. Lung volumes are normal. Lungs are clear. There is no pneumothorax or pleural effusion. Mild cardiomegaly is unchanged. Mediastinal contours a re normal. There is no evidence for pulmonary edema. IMPRESSION: No acute cardiopulmonary findings. ACT 112: Negative or not required by law. Electronically signed by: Abel Leach M.D. 03/02/2024 10:08 AM
[2024-03-02 10:23] LABS: INR 0.9 (0.9-1.1); Prothrombin Time 10.2 Seconds (9.0-12.0)
[2024-03-02 10:29] LABS: Appearance Urine Clear (Clear); Bacteria Urine Automated 2+ (None Seen); Bilirubin Urine Negative (Negative); Blood Urine Negative (Negative); Cast Urine Automated 0-2 /lpf (0-2); Color Urine Yellow; Epithelial Cell Urine Auto 0-2 /hpf (0-2); Glucose Urine UA Negative (Negative); Ketones Urine Negative (Negative); Leukocyte Esterase Urine 1+ (Negative); Nitrite Urine Negative (Negative); Protein Urine Negative (Negative); RBC Urine Automated 0-2 /hpf (0-2); Specific Gravity Urine 1.004 (1.000-1.030); Urobilinogen Urine Negative (Negative)
[2024-03-02 11:17] LABS: Adenovirus PCR Not Detected (NotDetected); Bordetella parapertussis PCR Not Detected (NotDetected); Bordetella pertussis PCR Not Detected (NotDetected); Chlamydia pneumoniae PCR Not Detected (NotDetected); Coronavirus 229E PCR Not Detected (NotDetected); Coronavirus CoV-2 (COVID19)PCR Not Detected (NotDetected); Coronavirus HKU1 PCR Not Detected (NotDetected); Coronavirus NL63 PCR Not Detected (NotDetected); Coronavirus OC43PCR Not Detected (NotDetected); Human Metapneumovirus PCR Not Detected (NotDetected); Influenza A PCR Not Detected (NotDetected); Influenza B PCR Not Detected (NotDetected); Mycoplasma pneumoniae PCR Not Detected (NotDetected); Parainfluenza Virus 1 PCR Not Detected (NotDetected); Parainfluenza Virus 2 PCR Not Detected (NotDetected); Parainfluenza Virus 3 PCR Not Detected (NotDetected); Parainfluenza Virus 4 PCR Not Detected (NotDetected); Respiratory Syncytial VirusPCR Not Detected (NotDetected); Rhinovirus/Enterovirus PCR Not Detected (NotDetected)
[2024-03-02] MEDS: cefTRIAXone SODIUM 2,000 MG/50 ML BAG IV STA (11:19)
--- NOTE | 2024-03-02 12:10 | History & Physical Report ---
Date of Service March 02, 2024 Assessment & Plan (1) Acute UTI (urinary tract infection): (2) Stroke-like symptoms: (3) Fall from standing: (4) H/O: stroke: Plan Stefanie is an 83-year-old female with PMH of CVA, hypothyroidism, HLD, incontinence, HTN, recurrent UTI, and neuropathy. She presented on 03/02 for 2 falls this morning. Patient sleeps in a recliner at night. She went to bed at 10 PM last night, then woke up around 1 AM to use the restroom. She stood and immediately lost her balance, and fell backwards into a chair. She reports urinary frequency over the past 1.5 weeks. She reports she has been peeing "constantly". She went back to sleep, but then had to wake up around 5 AM again to pee, when she stood, she felt unsteady, and her legs "gave out" on her. No dizziness prior to fall. She fell backwards and hit the back of her head on a wooden floor/iron stove. No LOC. She is on Plavix and aspirin for history of stroke. #UTI UA with +2 bacteria on arrival Clinically, patient endorses increased urinary frequency, urinary continence, and burning with urination Leukocytosis; afebrile on arrival H/o recurrent UTIs, patient has grown E. coli and Proteus vulgaris with resistance to ceftriaxone on prior UCxs Cefepime 2000 mg IV q12h Follow current UCx #Strokelike symptoms While UTI is the most likely cause of her fall, CVA/TIA remains within the differential given patient history and elevated BP on arrival Head CT on arrival revealed no acute findings Per attending, will defer Head/Neck CTA on admission Brain MRI ordered, pending Echocardiogram ordered, pending Permissive HTN; labetalol 5 mg IV as needed for SBP >220 or DBP >120 Neurochecks q4h for now Continue aspirin/Plavix daily A.m. fasting lipid panel, A1c #Fall x 2 PT/OT evaluations appreciated Fall precautions # History of prior CVA May 25, 2022 Disposition: Admit to PCU telemetry Full code Regular diet VTE PPx: Hold chemical DVT PPx for 24 hours in setting of acute head trauma; SCDs History of Present Illness Chief Complaint: Fall, urinary symptoms Primary Care Provider: Andres Garcia MD Stefanie is an 83-year-old female with PMH of CVA, hypothyroidism, HLD, incontinence, HTN, recurrent UTI, and neuropathy. She presented on 03/02 for 2 falls this morning. Patient sleeps in a recliner at night. She went to bed at 10 PM last night, then woke up around 1 AM to use the restroom. She stood and immediately lost her balance, and fell backwards into a chair. She reports urinary frequency over the past 1.5 weeks. She reports she has been peeing "constantly". She went back to sleep, but then had to wake up around 5 AM again to pee, when she stood, she felt unsteady, and her legs "gave out" on her. No dizziness prior to fall. She fell backwards and hit the back of her head on a wooden floor/iron stove. No LOC. She is on Plavix and aspirin for history of stroke. Patient then got up made herself breakfast, and sat in a chair. When she called her PCP, they recommended she come in for a stroke eval. She does have a history of a stroke, with the last one being on May 25, 2022. She reports good compliance with taking her Plavix and aspirin. She reports she did not take any of her regular morning medications this morning. She also has a history of recurrent UTIs, and has been on methenamine, and has required vaginal injections twice per week for recurrence. Patient also has a history of urinary incontinence. She reports that she wears pads, and has had frequent nocturia over the past 1.5 weeks. She is also had 2 episodes of incontinence during the daytime. No sick contacts. Patient lives by herself. Patient denies smoking or tobacco use. She did have a couple of drinks of alcohol on Saturday night for her son's birthday, but does not normally drink alcohol. Patient is hyp ertensive at 198/106 at time of admission; vitals otherwise stable. ED course: Ceftriaxone 2000 mg IV ROS: Patient endorses feeling off balance, increased urinary frequency, burning with urination, new nocturia, urinary incontinence (new x 2 weeks, but had incontinence in the past after having her first son), posterior head aching, and dry cough. Patient denies fever, chills, night-sweats, dizziness, syncope, slurred speech, facial droop, unilateral deficits, chest pain, chest palpitations, SOB, pleuritic CP, abdominal pain, N/V/D, new lower back pain, blood in the urine/stool, or saddle anesthesia. Allergies Allergy/AdvReac Type Severity Reaction Status Date / Time azithromycin Allergy Severe Itching Verified 01/14/24 11:10 [From Zithromax Z-Oleg] oxycodone Allergy Severe Delirium Verified 01/14/24 11:10 meperidine AdvReac Severe DIFFICULTY Verified 01/14/24 11:10 WAKING celecoxib [From Celebrex] AdvReac Intermediate lightheaded, Verified 01/14/24 11:10 tingling ciprofloxacin AdvReac Intermediate Arthalgia, Verified 01/14/24 11:10 myalgia hydrocodone AdvReac Intermediate Anxiety Verified 01/14/24 11:10 kenalog Allergy Mild Itching Uncoded 01/14/24 11:10 Home Medications Medication Instructions Recorded Confirmed Type cholecalciferol (vitamin D3) 25 25 mcg PO QAM 11/06/19 03/02/24 History mcg (1,000 unit) tablet (Vitamin D3) multivitamin 1 tab PO QAM 11/06/19 03/02/24 History albuterol sulfate 90 mcg/actuation 2 puff inhalation Q6H PRN 06/29/21 03/02/24 Rx aerosol inhaler shortness of breath or wheezing #18 grams aspirin 81 mg tablet,delayed 81 mg PO DAILY 07/02/22 03/02/24 History release magnesium 200 mg tablet 200 mg PO DAILY 11/14/22 03/02/24 History azelastine 137 mcg (0.1 %) nasal 2 spray intranasal DAILY PRN Other 07/18/23 03/02/24 History spray methenamine hippurate 1 gram 1 g PO BID 90 days #180 tabs 08/22/23 03/02/24 Rx tablet (Hiprex) tolterodine 4 mg capsule,extended 4 mg PO DAILY #90 caps 08/22/23 03/02/24 Rx release 24 hr diltiazem HCl 120 mg 120 mg PO DAILY #90 caps 09/30/23 03/02/24 Rx capsule,extended release 12 hr gabapentin 100 mg capsule 100 mg PO TID #90 caps 12/05/23 03/02/24 Rx estradiol 0.01% (0.1 mg/gram) 1 g vaginal 2XWK #42.5 grams 01/16/24 03/02/24 Rx vaginal cream (Estrace) clopidogrel 75 mg tablet (Plavix) 75 mg PO DAILY #90 tabs 02/14/24 03/02/24 Rx amoxicillin 500 mg capsule 2,000 mg PO UD PRN dental 03/02/24 03/02/24 History appointment atorvastatin 80 mg tablet 80 mg PO DAILY 03/02/24 03/02/24 History Past Med/Surg History Problem List (Updated 03/02/24 @ 13:09 by Frank Hill PA-C) Stroke-like symptoms Fall from standing (Acute) Acute UTI (urinary tract infection) (Acute) Dizziness (Acute) Peripheral neuropathy Lumbar back pain (Acute) Lumbar spondylosis Sciatica (Acute) Fall Hypothyroidism 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) Lumbar spinal stenosis Scoliosis of lumbar region due to degenerative disease of spine in adult Degenerative spondylolisthesis L3-4 Disc degeneration, lumbar Rotator cuff tear Pelvic floor relaxation Leg pain, bilateral Encounter for interrogation of cardiac recorder Cerebrovascular accident (CVA) Neuropathic pain H/O: stroke Glenohumeral arthritis Anxiety Hyperlipidemia Gait abnormality Incontinence Balance disorder Weakness Status post stroke Arthritis of left hip 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 Asthma Lumbar radiculopathy Encounter for pre-operative examination Hypertension (Chronic) Dyslipidemia Urinary incontinence (Chronic) Chronic bronchitis (Chronic) Allergic rhinitis (Chronic) Constipation (Chronic) Mixed incontinence urge and stress History of recurrent UTI (urinary tract infection) (Chronic) Hyperglobulinemia Recurrent UTI (Chronic) Hyperglycemia Vaginal atrophy Hypercholesterolemia Osteoarthritis (Acute) Bilateral shoulder pain (Chronic) Paresthesias in left hand (Chronic) Bilateral foot pain (Chronic) Paresthesia of both hands left worse than right Cervical radiculopathy Neuropathy (Chronic) Paresthesia of both feet Lumbar back pain with radiculopathy affecting lower extremity Left hip pain Venous insufficiency Hand pain, left Left knee pain High triglycerides Osteoarthritis of right hip History of bilateral knee replacement Arthritis of left hip Medical History Chronic rhinitis Neuropathy Hx of herpes zoster Varicose veins of bilateral lower extremities with other complications Actinic keratosis Rotator cuff dysfunction Senile lentigo Varicose veins of anus or rectum Surgical History History of colonoscopy History of carpal tunnel surgery of left wrist Hx of hernia repair H/O: hysterectomy Family History Father Bladder cancer Deafness Mother Hypertension Grandmother (Maternal) Diabetes Social History Smoking Status: Former smoker Tobacco Type: Cigarettes Age Started Using Tobacco: 23; Age Quit Using Tobacco: 27; packs per day: 0; Second Hand Exposure: No; Do You Dip or Chew Tobacco: No; Hx Alcohol Use: Yes Alcohol type: wine Alcohol type Comment: occasionally Hx Substance Use: No Preferred Language: Divehi Communication Ability: Effective Cosmetology Instructor Required: No Beliefs That Will Affect Care: Orthodoxy marital status: / Current Living Situation: Alone Feels Safe at Home: Yes caffeine: Yes (2 cups in the AM) Dental Care, Regularly: Yes Seatbelt Use: always Assistive Devices: Cane, Raised Toilet Seat and Walker Review of Systems Review of Systems: See HPI above Physical Exam Physical Exam: General: no acute distress; pleasant affect; non-toxic appearing; well- nourished; cooperative; SpO2 97% on RA HEENT: normocephalic; mild potential bruising on posterior scalp, however did not see hematoma noted in the ED report; no scleral icterus; PERRLA w/ EOMs intact; vision and hearing intact; patient demonstrates ability to smile, frown, and raise eyebrows without unilateral deficits; patient demonstrates ability to protrude and wiggle tongue bilaterally without deficits Neck: supple; no lymphadenopathy; trachea midline Skin: warm, dry without signs of tenting; no cyanosis; no rashes, bruising, lesions, or erythema noted CV: chest wall NTP; RRR; S1/S2 normal; no murmurs/rubs/gallops; pulses intact and symmetric at radial, DP, and PT Lungs: no acute respiratory distress; symmetrical chest wall expansion; clear breath sounds across all lung almanzar w/o adventitious sounds; no wheezing ABD: Soft, NTP; BS present; no rebound/guarding; no distention; negative suprapubic tenderness, but patient does report that pressing on her bladder makes her "want to urinate" MSK: no tics or fasciculations; no edema noted in the LEs b/l, nonerythematous; 5/5 precision 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 technician strength bilaterally; 5/5 strength with leg lift bilaterally Neuro: A&Ox3; normal mood and affect; fluent speech; no facial droop; no focal deficits; patient reports sensation is intact and symmetric in the upper extremities, lower extremities, and face bilaterally Results & Data Results & Data Vital Signs (Past 12 Hours) Vital Signs Temp Pulse Resp BP Pulse Ox O2 Del Method 03/02/24 10:15 78 14 97 03/02/24 10:10 198/106 H 03/02/24 10:09 80 12 98 03/02/24 09:42 77 16 94 03/02/24 09:33 98 Room Air 03/02/24 09:31 82 03/02/24 09:30 79 17 99 03/02/24 09:25 155/122 H 03/02/24 09:06 36.6 C 86 20 203/98 H 98 Room Air Laboratory Results Abnormal lab results 03/02/24 03/02/24 Range/Units 09:25 10:09 RDW Std Deviation 47.6 H (36.4-46.3) fL RDW Coeff of Scarlet 15.5 H (11.5-14.5) % Lymph # (Auto) 1.10 L (1.20-3.40) K/uL Sumner # (Auto) 0.63 H (0.11-0.59) K/uL BUN/Creatinine Ratio 25.0 H (10-20) Urine pH 8.0 H (4.5-7.5) Ur Leukocyte Esterase 1+ H (Negative) Urine WBC (Auto) 6-10 H (0-5) /hpf Urine Bacteria (Auto) 2+ H (None Seen) Diagnostic Findings Chest X-Ray 03/02/24 09:31 XR chest 1V portable CLINICAL HISTORY: dizziness COMPARISON STUDY: Chest radiograph July 12, 2022. Chest CT September 02, 2017. FINDINGS: Left shoulder arthroplasty is incidentally noted. Lung volumes are normal. Lungs are clear. There is no pneumothorax or pleural effusion. Mild cardiomegaly is unchanged. Mediastinal contours are normal. There is no evidence for pulmonary edema. IMPRESSION: No acute cardiopulmonary findings. ACT 112: Negative or not required by law. Electronically signed by: Abel Leach M.D. 03/02/2024 10:[address] 03/02/24 09:31 CT head/brain wo con CLINICAL HISTORY: dizziness; fall; head strike Technique: Contiguous axial CT images of the head were acquired from the base of the skull to the vertex without intravenous contrast administration. Images were viewed in brain, subdural and bone windows. Automated dose lowering techniques and/or adjustment according to patient size were utilized for this exam. Comparison: Comparison is made to CT head 12/25/2022 Findings: The ventricles, basal cisterns, and cerebral sulci are normal. There is no acute intracranial hemorrhage or evidence of acute territorial infarction. Neither mass effect, shift of the midline structures, nor abnormal extra-axial fluid collections are shown. Imaged portions of the paranasal sinuses and mastoid air cells are clear. The orbits appear normal. There are no acute fractures of the calvaria or scalp swelling. Impression: No acute intracranial hemorrhage, no evidence of acute territorial infarction or other acute intracranial disease process. ACT 112: Negative or not required by law. Electronically signed by: Jose Armando Avelar M.D. 03/02/2024 10:02 AM ECG Additional Comments: ECG revealed NSR at 79 bpm; QTc 417 Code Status & VTE Plan Code Status Full code VTE Prophylaxis Plan VTE Prophylaxis will be ordered: Yes Supervising Physician Co-Signing Physician Notes The patient was seen by me. The chart was reviewed. Case discussed with CARMEN Conde. Agree with assessment and plan PG Care Time/CCT Total # of Minutes Spent Total Time Spent with Patient: Total time spent is greater than 50% in coordination of care (as documented) at patient's floor/unit and/or counseling patient: Coding [place] [address] INT INP/OBS CARE 3/75MIN Patient Type Established Medical Decision Making High Complexity Diagnoses Acute UTI (urinary tract infection) N39.0 Stroke-like symptoms R29.90 Fall from standing W19.XXXA H/O: stroke Z86.73
[2024-03-02] MEDS ORDERED: PHARMACIST DISCHARGE MED REC CONSULT PRN (12:56)
[2024-03-02] MEDS: CEFEPIME 2000MG 2,000 MG/20 ML SYR IV STA (13:02)
--- NOTE | 2024-03-02 14:41 | Magnetic Resonance Report ---
MRI OF THE BRAIN WITHOUT CONTRAST CLINICAL HISTORY: Stroke-like symptoms; recurrent falls COMPARISON STUDY: MRI of the brain December 25, 2022. Head CT performed earlier today. TECHNIQUE: Utilizing a 1.5 Grace magnet and dedicated coil, multiplanar, multiecho imaging of the bra in was performed without IV contrast. FINDINGS: There are no foci of restricted diffusion to suggest acute infarct. No acute intracranial h emorrhage, midline shift or mass effect is present. Ventricular system is unchanged since MRI of [facility] 2022. White matter T2 hyperintense foci are similar to that exam and favor small vessel dise ase. There is mild atrophy. An old pontine infarct is unchanged. Prominent perivascular space within the right temporal lobe is present. Flow-voids for the major intracranial vessels are present. There are no calvarial lesions. IMPRESSION: 1. No acute intracranial findings. 2. No significant change since MRI of December 25, 2022. ACT 112: Negative or not required by law. Electronically signed by: Abel Leach M.D. 03/02/2024 2:39 PM
[2024-03-02] MEDS ORDERED: LABETALOL HCL IV 5 MG/ML 20ML IV PRN (14:48)
[2024-03-02] MEDS ORDERED: ONDANSETRON INJ 2 MG/ML 2 ML VIAL IV PRN (14:48)
[2024-03-02] MEDS ORDERED: ALBUTEROL HFA 8 GM INHALER INH PRN (14:48)
--- NOTE | 2024-03-02 15:06 | Electrocardiogram Report ---
Test Reason : Blood Pressure : */* mmHG Vent. Rate : 79 BPM Atrial Rate : 79 BPM P-R Int : 188 ms QRS Dur : 92 ms QT Int : 364 ms P-R-T Axes : 68 6 25 degrees QTcB Int : 417 ms Normal sinus rhythm RSR' or QR pattern in V1 suggests right ventricular conduction delay Nonspecific T wave abnormality Abnormal ECG When compared with ECG of 12-Jan-2023 17:04, Nonspecific T wave abnormality now evident in Lateral leads Confirmed by Walter Jaime ([id number]) on 03/02/2024 3:05:27 PM Referred By: REFERRED SELF Confirmed By: Walter Jaime
[2024-03-02] MEDS: ACETAMINOPHEN 325 MG TAB PO PRN (15:40)
[2024-03-02] MEDS: GABAPENTIN 100 MG CAP PO SCH (15:40)
[2024-03-02] MEDS: CLOPIDOGREL BISULFATE 75 MG TAB PO ONE (15:41)
[2024-03-02] MEDS: ATORVASTATIN 40 MG TAB PO STA (15:41)
[2024-03-02] MEDS: ASPIRIN 81 MG ECTAB PO STA (15:41)
[2024-03-02] MEDS ORDERED: hydrALAZINE HCL 20 MG/ML VIAL IV PRN (17:14)
[2024-03-03] MEDS: CEFEPIME 2000MG 2,000 MG/20 ML SYR IV SCH (01:01)
[2024-03-03 06:34] LABS: Calcium 9.3 mg/dl (8.6-10.3); Chol HDL Ratio 3.2 (0-5); Potassium 4.2 mmol/L (3.5-5.1)
[2024-03-03 06:37] LABS: Hematocrit (blood only) 40.3 % (37.0-47.0); Hemoglobin 13.5 g/dl (12.0-16.0); Mean Corpuscular Hemoglobin 28.2 pg (25.0-34.0); Mean Corpuscular Hgb Conc 33.5 g/dL (32.0-36.0); Mean Corpuscular Volume 84.1 fL (80.0-100.0); Mean Platelet Volume 10.4 fL (9.4-12.4); Platelet Count 225 K/uL (130-400); RDW Coefficient of Variation 15.4 % (11.5-14.5); RDW Standard Deviation 47.5 fL (36.4-46.3); Red Blood Count 4.79 M/uL (4.20-5.40)
[2024-03-03 07:27] LABS: Estimated Average Glucose 111 mg/dl; Hemoglobin A1C 5.5 % (4.5-5.6)
[2024-03-03 08:08] VITALS: PULSE 80; RESP 19
[2024-03-03] MEDS: CLOPIDOGREL BISULFATE 75 MG TAB PO SCH (08:20)
[2024-03-03] MEDS: ASPIRIN 81 MG ECTAB PO SCH (08:20)
[2024-03-03] MEDS: OXYBUTYNIN CHLORIDE XL 5 MG TABCR PO SCH (08:20)
[2024-03-03] MEDS: dilTIAZem HCL 120 MG CAPCR PO SCH (08:20)
[2024-03-03] MEDS: ATORVASTATIN 40 MG TAB PO SCH (08:20)
[2024-03-03] MEDS: MAGNESIUM OXIDE 400 MG TAB PO SCH (08:22)
[2024-03-03 10:55] VITALS: BP 148/75; TEMP 97.7; O2SAT 98
--- NOTE | 2024-03-03 11:33 | XCELERA ---
[id number]
[2024-03-03] MEDS ORDERED: STROKE PATIENT DISCHARGE STA (12:51)
--- NOTE | 2024-03-03 12:54 | Discharge Summary ---
Discharge Summary Date of Service March 03, 2024 Principal Dx & Hospital Course #1 = Principal Diagnosis (1) Acute UTI (urinary tract infection): Final culture results pending. Prior urine cultures grew E. coli. Will discharge on Macrobid for 5 more days. (2) Stroke-like symptoms: Brain MRI negative for acute CVA. Strokelike symptoms have completely resolved (3) Fall from standing: Prior to admission. Now resolved (4) H/O: stroke: Nothing acute seen on current brain MRI scan Plan Home today, March 03. Continue Macrobid for 5 more days Admission HPI Per Admitting Provider Stefanie is an 83-year-old female with PMH of CVA, hypothyroidism, HLD, incontinence, HTN, recurrent UTI, and neuropathy. She presented on 03/02 for 2 falls this morning. Patient sleeps in a recliner at night. She went to bed at 10 PM last night, then woke up around 1 AM to use the restroom. She stood and immediately lost her balance, and fell backwards into a chair. She reports urinary frequency over the past 1.5 weeks. She reports she has been peeing " constantly". She went back to sleep, but then had to wake up around 5 AM again to pee, when she stood, she felt unsteady, and her legs "gave out" on her. No dizziness prior to fall. She fell backwards and hit the back of her head on a wooden floor/iron stove. No LOC. She is on Plavix and aspirin for history of stroke. Patient then got up made herself breakfast, and sat in a chair. When she called her PCP, they recommended she come in for a stroke eval. She does have a history of a stroke, with the last one being on May 25, 2022. She reports good compliance with taking her Plavix and aspirin. She reports she did not take any of her regular morning medications this morning. She also has a history of recurrent UTIs, and has been on methenamine, and has required vaginal injections twice per week for recurrence. Patient also has a history of urinary incontinence. She reports that she wears pads, and has had frequent nocturia over the past 1.5 weeks. She is also had 2 episodes of incontinence during the daytime. No sick contacts. Patient lives by herself. Patient denies smoking or tobacco use. She did have a couple of drinks of alcohol on Saturday night for her son's birthday, but does not normally drink alcohol. Patient is hypertensive at 198/106 at time of admission; vitals otherwise stable. ED course: Ceftriaxone 2000 mg IV ROS: Patient endorses feeling off balance, increased urinary frequency, burning with urination, new nocturia, urinary incontinence (new x 2 weeks, but had incontinence in the past after having her first son), posterior head aching, and dry cough. Patient denies fever, chills, night-sweats, dizziness, syncope, slurred speech, facial droop, unilateral deficits, chest pain, chest palpitations, SOB, pleuritic CP, abdominal pain, N/V/D, new lower back pain, blood in the urine/stool, or saddle anesthesia. Discharge Exam General-alert and oriented x3, no fever, no chills HEENT-head atraumatic and normocephalic, pupils equal and reactive to light, extraocular muscles intact Neck-no lymphadenopathy or thyromegaly, trachea midline Chest-clear to auscultation. No rales, wheezing or rhonchi Cardiac-regular rate and rhythm, normal S1 and S2 Abdomen-normal bowel sounds, no hepatosplenomegaly Extremities-no cyanosis, clubbing, or edema Neuro-cranial nerves II through XII intact, motor and sensory function within normal limits, strength symmetrical, no focal deficits Psych-normal affect, normal mood Discharge Plan Discharge Items Patient Disposition: Home - Self-Care Reason For Visit: FALLS X2, UTI, STROKE R/O Discharge Diagnosis: Strokelike symptoms without acute CVA, multiple falls, recurrent UTI Activity: Resume your previous activity Non-emergency contact: Primary Care Provider Call non-emergency contact if: your symptoms worsen Follow-up/Referrals: Andres Garcia MD [Primary Care Provider] - Diet: Regular Addtl Attending Provider Instructions: Take Macrobid (nitrofurantoin) 100 mg twice a day for 5 days. [facility] P[facility] Studies at Discharge: Yes Studies:: Cardiac echo report Stand-Alone Forms: My [facility] [email or web address], Smoking Cessation Medications and DC Order Prescriptions: New nitrofurantoin monohyd/m-cryst [Macrobid] 100 mg capsule 100 mg PO BID 5 Days Qty: 10 0RF Rx Instructions: must administer with a meal/food Continued magnesium 200 mg tablet 200 mg PO DAILY albuterol sulfate 90 mcg/actuation HFA aerosol inhaler 2 puff inhalation Q6H PRN (Reason: shortness of breath or wheezing) Qty: 18 1RF methenamine hippurate [Hiprex] 1 gram tablet 1 g PO BID 90 Days Qty: 180 3RF tolterodine 4 mg capsule,extended release 24hr 4 mg PO DAILY Qty: 90 3RF diltiazem HCl 120 mg capsule,extended release 12 hr 120 mg PO DAILY Qty: 90 1RF gabapentin 100 mg capsule 100 mg PO TID Qty: 90 2RF estradiol [Estrace] 0.01 % (0.1 mg/gram) cream 1 g vaginal 2XWK Qty: 42.5 0RF Rx Instructions: Apply a pea-sized amount to vaginal opening two times per week clopidogrel [Plavix] 75 mg tablet 75 mg PO DAILY Qty: 90 1RF aspirin 81 mg tablet,delayed release (DR/EC) 81 mg PO DAILY cholecalciferol (vitamin D3) [Vitamin D3] 25 mcg (1,000 unit) Tablet 25 mcg PO QAM multivitamin Tablet 1 tab PO QAM azelastine 137 mcg (0.1 %) aerosol,spray 2 spray INTRANASAL DAILY PRN (Reason: Other) amoxicillin 500 mg capsule 2,000 mg PO UD PRN (Reason: dental appointment) atorvastatin 80 mg tablet 80 mg PO DAILY Discharge Orders: Discharge Order (Routine); Ordered 03/03/24 Ordered By: Kosta Power Admission Data Admit Date/Time: 03/02/24 13:06 Attending Provider: Kosta Power Admit Provider: Kosta Power Primary Care Provider: Andres Garcia Other Providers: Kosta Power Hospital Stay Data Consultations 03/02/24 11:55 ED Decision to Admit Stat Diagnostic Imagining Performed 03/02/24 09:31 CT head/brain wo con Stat 03/02/24 12:56 MR brain wo con Stat Pending Results Patient Have Any Pending Studies at Discharge: Yes Discharge Instructions Given to Patient (Per Discharging Provider) Take Macrobid (nitrofurantoin) 100 mg twice a day for 5 days. A [facility] Total Time Total Time Spent Total Time Spent (In Minutes): 45-minute Coding Level of Care Code 91364 INP/OBS DISCH >30 MIN Diagnoses Acute UTI (urinary tract infection) N39.0 Stroke-like symptoms R29.90 Fall from standing W19.XXXA H/O: stroke Z86.73
--- NOTE | 2024-03-03 13:44 | Communication Note ---
Date of Service: March 03, 2024 By CMS guidelines, a determination that the admission or continued stay is not medically necessary has been made by a member of the UR committee and nirmal lindsay for this hospital stay, therefore a Code 44 will be completed and the Inpatient admission will be changed to outpatient.
== END 2024-03-03 14:17 | disposition home or self-care (01) | DRG 690 ==
LOC: ED 08:59 → 2E 13:06

== ENCOUNTER 2024-05-26 08:46 | Inpatient (IN) ==
--- NOTE | 2024-05-26 09:08 | Emergency Department Note ---
Impression & Plan Open fracture of right wrist, Fall ED Provider Note NAME: JAMES YUNG AGE: 84 SEX: F : 1940 ARRIVES VIA: Ambulance INFORMANT: Patient ED PROVIDER(S): Jones Ríos DO CHIEF COMPLAINT: fall HPI: Patient is an 84-year-old female with a past medical history of ataxia, neuropathy in the legs to the ER following a fall. She was reaching up to grab a coffee cup and lost her balance and stumbled and fell. She fell backwards and hit her head. She did get her right wrist out. She is complaining of right wrist pain bruising and swelling. She admits to feeling a little bit of a headache. No neck pain. No weakness or numbness in the arms or legs other than the right wrist. No chest pain or shortness of breath preceding or following this incident. No dysuria, urgency, or frequency. ADDITIONAL HISTORY OBTAINED: Per HPI Chronic Medical/Social Conditions Affecting Care: Per HPI PAST MEDICAL HISTORY:See Below PAST SURGICAL HISTORY:See Below FAMILY HISTORY:See Below SOCIAL HISTORY:See Below HOME MEDICATIONS:See Below ALLERGIES:See Below VITALS:See Below PHYSICAL EXAMINATION: GENERAL: alert, well appearing, well nourished, no distress, non-toxic HEAD: normal cephalic, atraumatic EYE EXAM: normal conjunctiva, PERRL and EOM's grossly intact OROPHARYNX: no exudate, no erythema, lips, buccal mucosa, and tongue normal and mucous membranes are moist NECK: supple, no nuchal rigidity, no adenopathy, non-tender CHEST: stable to compression anteriorly and posteriorly LUNGS: clear to auscultation. Normal chest wall mechanics HEART: no murmurs, S1 normal and S2 normal ABDOMEN: abdomen soft, non-tender, normo-active bowel sounds, no masses, no rebound or guarding. PELVIS: stable to compression anteriorly and posteriorly BACK: Back is symmetrical on inspection and there is no deformity, no midline tenderness, no CVA tenderness. UPPER EXTREMITIES: No tenderness on palpation of the entire left upper extremity. No tenderness on palpation of right humerus, elbow proximal or mid forearm. Bruising and swelling over the lateral dorsal wrist. Skin is intact. Radial pulse 2 out of 4. No tenderness throughout the digits of the hand. 2 small wounds on the volar distal aspect of the wrist. no bleeding. LOWER EXTREMITIES: full active and passive range of motion of all joints without tenderness to palpation NEURO EXAM: Normal sensorium, cranial nerves II-XII grossly intact, normal speech, no gross weakness of arms, no gross weakness of legs. GCS: 15. MEDICAL DECISION MAKING: Patient is a an 84-year-old female who presents to the ER for the above-stated complaint. She notes that she fell while reaching for a couple coffee. She has no urinary symptoms. She was concerned that she may have a UTI as this has happened before when she had a UTI. No fevers. No back pain. IV was established blood work was obtained. Labs show no significant leukocytosis or anemia. BMP along LFTs bilirubin and lipase was unremarkable. UA was clean. Again there is no signs of infection with a clean urine, no white count and no urinary symptoms. Will not treat at this time. X-rays and CT were obtained. CT of the head and cervical spine was obtained and was unremarkable. X-rays of the hand and wrist show distal radial ulnar fracture. Patient was neurovascular intact. Patient was seen by orthopedics and they felt that this was consistent with an open fracture and patient was taken to the OR for ORIF. Patient was given 3 g of IV Ancef. She declined pain medications while here initially. She was given IV Toradol while in the ER. Please see their note for further details. Consults/Care Managements Discussions: Per [facility] Triage Nursing notes reviewed. Limited review of prior medical records performed Vital Signs: reviewed and remarkable for no significant abnormalities Differential diagnosis: Differential diagnoses include major intracranial, cervical, spinal, thoracic, abdominal, pelvic and neurologic injury. Fracture, contusion, sprain, strain, laceration, abrasions included as well. ER treatment provided: See below Diagnostics interpreted by me include EKG and cardiac monitoring as listed below: -Cardiac Monitoring: An order was placed for continuous cardiac monitoring. The monitor shows a rate of 80 with sinus rhythm. -ECG: none -Laboratory studies:Interpreted by me as stated above in MDM and shown below. 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) Lumbar spinal stenosis Scoliosis of lumbar region due to degenerative disease of spine in adult Degenerative spondylolisthesis L3-4 Disc degeneration, lumbar Pelvic floor relaxation Encounter for interrogation of cardiac recorder Cerebrovascular accident (CVA) Neuropathic pain Glenohumeral arthritis Anxiety Hyperlipidemia Incontinence Status post stroke Arthritis of left hip 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 Asthma Lumbar radiculopathy Encounter for pre-operative examination Hypertension (Chronic) Dyslipidemia Urinary incontinence (Chronic) Chronic bronchitis (Chronic) Allergic rhinitis (Chronic) Mixed incontinence urge and stress History of recurrent UTI (urinary tract infection) (Chronic) Hyperglobulinemia Recurrent UTI (Chronic) Hyperglycemia Vaginal atrophy Hypercholesterolemia Osteoarthritis (Acute) Paresthesia of both hands left worse than right Cervical radiculopathy Neuropathy (Chronic) Paresthesia of both feet Lumbar back pain with radiculopathy affecting lower extremity Left hip pain Venous insufficiency Hand pain, left Left knee pain Osteoarthritis of right hip History of bilateral knee replacement Arthritis of left hip Medical History (Updated 05/26/24 @ 15:00 by Jones Ríos DO) Stroke-like symptoms Fall from standing Fall Rotator cuff tear Leg pain, bilateral Gait abnormality Balance disorder Weakness High triglycerides Bilateral foot pain Paresthesias in left hand Bilateral shoulder pain Constipation H/O: stroke Chronic rhinitis Neuropathy Bilateral feet - on gabapentin Does have ongoing left sided "nerve pain" - will be following neuro 10/04 Hx of herpes zoster Approximately 2018- has had nerve pain since that time Varicose veins of bilateral lower extremities with other complications S/p left leg ablation of GSV as well as stab phlebectomies of left LE 1.5 years ago while in [place] Follows with Dr Manzanares- last seen 08/2021- follow up PRN Actinic keratosis Rotator cuff dysfunction left Senile lentigo Varicose veins of anus or rectum No issues per patient Surgical History (Updated 05/26/24 @ 14:29 by Riki Huynh PA-C) S/p reverse total shoulder arthroplasty History of total knee arthroplasty History of colonoscopy History of carpal tunnel surgery of left wrist Hx of hernia repair H/O: hysterectomy Family History Father Bladder cancer Deafness Mother Hypertension Grandmother (Maternal) Diabetes Social History Smoking Status: Former smoker Tobacco Type: Cigarettes Age Started Using Tobacco: 23; Age Quit Using Tobacco: 27; packs per day: 0; Second Hand Exposure: No; Do You Dip or Chew Tobacco: No; Hx Alcohol Use: No Hx Substance Use: No Preferred Language: [place] Communication Ability: Effective 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: No Beliefs That Will Affect Care: Faith marital status: / Current Living Situation: Alone Feels Safe at Home: Yes caffeine: Yes (2 cups in the AM) Dental Care, Regularly: Yes Seatbelt Use: always Assistive Devices: Cane, Raised Toilet Seat and Walker Allergies Allergies Allergy/AdvReac Type Severity Reaction Status Date / Time azithromycin Allergy Severe Itching Verified 05/21/24 13:40 [From Zithromax Z-Oleg] oxycodone Allergy Severe Delirium Verified 05/21/24 13:40 meperidine AdvReac Severe DIFFICULTY Verified 05/21/24 13:40 WAKING celecoxib [From Celebrex] AdvReac Intermediate lightheaded, Verified 05/21/24 13:40 tingling ciprofloxacin AdvReac Intermediate Arthalgia, Verified 05/21/24 13:40 myalgia hydrocodone AdvReac Intermediate Anxiety Verified 05/21/24 13:40 kenalog Allergy Mild Itching Uncoded 05/21/24 13:40 Home Meds Home Medications Medication Instructions Recorded Confirmed cholecalciferol (vitamin D3) 25 25 mcg PO QAM 11/06/19 05/26/24 mcg (1,000 unit) tablet (Vitamin D3) multivitamin 1 tab PO QAM 11/06/19 05/26/24 aspirin 81 mg tablet,delayed 81 mg PO DAILY 07/02/22 05/26/24 release magnesium 200 mg tablet 200 mg PO DAILY 11/14/22 05/26/24 azelastine 137 mcg (0.1 %) nasal 2 spray intranasal DAILY 07/18/23 05/26/24 spray amoxicillin 500 mg capsule 2,000 mg PO UD PRN dental 03/02/24 05/26/24 appointment cyclobenzaprine 5 mg tablet 5 mg PO TID PRN Muscle Spasm 05/26/24 05/26/24 methenamine hippurate 1 gram tablet 1 g PO UD 05/26/24 05/26/24 nitrofurantoin macrocrystal 50 mg 50 mg PO UD 05/26/24 05/26/24 capsule tavaborole 5 % topical solution 1 applic topical DAILY 05/26/24 05/26/24 with applicator Previous Rx's Medication Instructions Recorded albuterol sulfate 90 mcg/actuation 2 puff inhalation Q6H PRN 06/29/21 aerosol inhaler shortness of breath or wheezing #18 grams tolterodine 4 mg capsule,extended 4 mg PO DAILY #90 caps 08/22/23 release 24 hr clopidogrel 75 mg tablet (Plavix) 75 mg PO DAILY #90 tabs 02/14/24 diltiazem HCl 120 mg 120 mg PO DAILY #90 caps 03/26/24 capsule,extended release 12 hr atorvastatin 80 mg tablet 80 mg PO DAILY #90 tabs 04/17/24 estradiol 0.01% (0.1 mg/gram) 1 g vaginal 2XWK #42.5 grams 04/23/24 vaginal cream (Estrace) gabapentin 100 mg capsule 100 mg PO TID #90 caps 04/23/24 Results & Data (ED) Vital Signs Vital Signs - 24 hr 05/26/24 09:01 05/26/24 09:10 05/26/24 09:11 Temperature 36.6 C Temperature Source Oral Pulse Rate 75 73 Pulse Rate [Apical] Respiratory Rate 18 Respiratory Effort / Characteristics Non-Labored Respiratory Depth Normal Normal Blood Pressure 173/116 H Blood Pressure [Left Arm] Blood Pressure Mean 135 Blood Pressure Mean [Left Arm] Pulse Oximetry 100 Oxygen Delivery Method Room Air Sepsis Recent Fever Within 48 Hours No Sepsis New/Unexplained Change in Mental Status No Sepsis Action Taken by Nursing No Action Required 05/26/24 09:11 05/26/24 09:11 05/26/24 10:00 Temperature Temperature Source Pulse Rate Pulse Rate [Apical] 69 Respiratory Rate 18 Respiratory Effort / Characteristics Non-Labored Non-Labored Respiratory Depth Normal Normal Blood Pressure Blood Pressure [Left Arm] 165/87 H Blood Pressure Mean Blood Pressure Mean [Left Arm] 113 Pulse Oximetry 97 Oxygen Delivery Method Room Air Room Air Sepsis Recent Fever Within 48 Hours Sepsis New/Unexplained Change in Mental Status Sepsis Action Taken by Nursing 05/26/24 11:00 05/26/24 11:10 05/26/24 12:00 Temperature Temperature Source Pulse Rate Pulse Rate [Apical] 75 79 Respiratory Rate 20 20 Respiratory Effort / Characteristics Non-Labored Non-Labored Non-Labored Respiratory Depth Normal Normal Normal Blood Pressure Blood Pressure [Left Arm] 163/88 H 179/93 H Blood Pressure Mean Blood Pressure Mean [Left Arm] 113 121 Pulse Oximetry 96 98 Oxygen Delivery Method Room Air Room Air Sepsis Recent Fever Within 48 Hours Sepsis New/Unexplained Change in Mental Status Sepsis Action Taken by Nursing 05/26/24 13:00 05/26/24 13:08 05/26/24 14:00 Temperature Temperature Source Pulse Rate 79 Pulse Rate [Apical] 80 81 Respiratory Rate 20 20 Respiratory Effort / Characteristics Non-Labored Non-Labored Respiratory Depth Normal Normal Blood Pressure Blood Pressure [Left Arm] 178/90 H 158/77 H Blood Pressure Mean Blood Pressure Mean [Left Arm] 119 104 Pulse Oximetry 98 99 Oxygen Delivery Method Room Air Room Air Sepsis Recent Fever Within 48 Hours Sepsis New/Unexplained Change in Mental Status Sepsis Action Taken by Nursing 05/26/24 14:53 Temperature Temperature Source Pulse Rate 80 Pulse Rate [Apical] Respiratory Rate 18 Respiratory Effort / Characteristics Respiratory Depth Blood Pressure Blood Pressure [Left Arm] Blood Pressure Mean Blood Pressure Mean [Left Arm] Pulse Oximetry 98 Oxygen Delivery Method Room Air Sepsis Recent Fever Within 48 Hours Sepsis New/Unexplained Change in Mental Status Sepsis Action Taken by Nursing Laboratory Data 05/26/24 09:18 05/26/24 09:18 Lab Results 05/26/24 05/26/24 Range/Units 09:18 Unknown WBC 5.59 (4.8-10.8) K/ul RBC 5.36 (4.20-5.40) M/uL Hgb 15.0 (12.0-16.0) g/dl Hct 44.9 (37.0-47.0) % MCV 83.8 (80.0-100.0) fL MCH 28.0 (25.0-34.0) pg MCHC 33.4 (32.0-36.0) g/dL RDW Std Deviation 45.3 (36.4-46.3) fL RDW Coeff of Scarlet 14.8 H (11.5-14.5) % Plt Count 284 (130-400) K/uL MPV 10.2 (9.4-12.4) fL Immature Gran % (Auto) 0.7 % Neut % (Auto) 63.0 % Lymph % (Auto) 22.5 % Phillips % (Auto) 8.8 % Eos % (Auto) 4.1 % Baso % (Auto) 0.9 % Neut # (Auto) 3.52 (1.40-6.50) K/uL Lymph # (Auto) 1.26 (1.20-3.40) K/uL Phillips # (Auto) 0.49 (0.11-0.59) K/uL Eos # (Auto) 0.23 (0.00-0.50) K/uL Baso # (Auto) 0.05 (0.00-0.20) K/uL Immature Gran # (Auto) 0.04 (0.01-0.20) K/uL Sodium 141 (136-145) mmol/L Potassium 3.8 (3.5-5.1) mmol/L Chloride 106 (98-107) mmol/L Carbon Dioxide 29 (21-32) mmol/L Anion Gap 6 (3-11) BUN 14 (6-23) mg/dl Creatinine 0.62 (0.6-1.2) mg/dl Est Cr Clr Drug Dosing 70.6 ml/min eGFR 88.86 BUN/Creatinine Ratio 22.6 H (10-20) Glucose 91 (70-99(Fasting)) mg/dl Calcium 10.0 (8.6-10.3) mg/dl Total Bilirubin 0.7 (0.2-1.0) mg/dl AST 23 (13-39) U/L ALT 20 (7-52) U/L Alkaline Phosphatase 89 (34-104) U/L Total Protein 7.3 (6.0-8.3) gm/dl Albumin 4.2 (3.4-5.0) gm/dl Globulin 3.1 (2.5-4.0) gm/dl Albumin/Globulin Ratio 1.4 (0.9-2) Lipase 36 (11-82) U/L Urine Color Yellow Urine Appearance Slightly Cloudy (Clear) Urine pH 8.0 H (4.5-7.5) Ur Specific [place] 1.015 (1.000-1.030) Urine Protein Negative (Negative) Urine Glucose (UA) Negative (Negative) Urine Ketones Negative (Negative) Urine Blood Negative (Negative) Urine Nitrite Negative (Negative) Urine Bilirubin Negative (Negative) Urine Urobilinogen Negative (Negative) Ur Leukocyte Esterase Negative (Negative) Administered Medications Discontinued Medications Bupivacaine HCl (Bupivacaine 0.5 % 5 Mg/1 Ml Mpf 30ml Vial) Confirm Administered Dose 30 ml .ROUTE .STK-MED ONE Stop: 05/26/24 13:44 Last Admin: 05/26/24 14:44 Dose: 30 ml Documented By: VANESSA Cefazolin Sodium (Cefazolin 2,000 Mg/15 Ml Iv Push) Confirm Administered Dose 2,000 mg IV .STK-MED ONE Stop: 05/26/24 14:29 Last Admin: 05/26/24 14:44 Dose: Not Given Documented By: VANESSA Cefazolin Sodium (Ancef 2000mg) 2,000 mg in 15 mls @ 3.75 mls/min IV NOW STA Stop: 05/26/24 14:24 Last Admin: 05/26/24 14:45 Dose: 3.75 mls/min Documented By: VANESSA Ketorolac Tromethamine (Ketorolac Tromethamine 15 Mg/Ml Vial) 10 mg IV NOW ONE Stop: 05/26/24 09:15 Last Admin: 05/26/24 09:21 Dose: 10 mg Documented By: VANESSA Ketorolac Tromethamine (Ketorolac Tromethamine 15 Mg/Ml Vial) Confirm Administered Dose 15 mg .ROUTE .[employer]-MED ONE Stop: 05/26/24 14:42 Last Admin: 05/26/24 14:44 Dose: Not Given Documented By: VANESSA Lidocaine HCl (Lidocaine 2% Local 50 Ml Vial) Confirm Administered Dose 50 ml .ROUTE .STK-MED ONE Stop: 05/26/24 13:45 Last Admin: 05/26/24 14:44 Dose: 50 ml Documented By: VANESSA Imaging Data Radiologist's Impression: Cervical Spine CT 05/26/24 09:03 CT cervical spine wo con CT DOSE: 1161.04 mGy.cm CLINICAL HISTORY: 84 years-old Female with fall. Acute neck injury status post fall COMPARISON: Head CT of same day, CT neck 12/25/2022 TECHNIQUE: Multiple axial CT images of the cervical spine were obtained without contrast. A dose lowering technique was utilized adhering to the principles of ALARA. FINDINGS: Straightening of the normal cervical lordosis. Multilevel moderate to severe degenerative changes of the cervical spine. 4 mm anterolisthesis C7 on T1 is likely secondary to the chronic severe facet arthrosis. No acute fracture or subluxation identified. There is severe degeneration of the temporal mandibular joints. The cervical soft tissues appear unremarkable. The visualized lung apices appear clear. IMPRESSION: No acute cervical spine fracture or subluxation identified. ACT 112: Negative or not required by law. The above report was generated using voice recognition software. It may contain grammatical, syntax or spelling errors. Electronically signed by: Juan J Burton M.D. 05/26/2024 12:34 PM Hand X-Ray 05/26/24 09:03 XR wrist RT min 3V routine, XR hand RT min 3V routine CLINICAL HISTORY: r wrist pain COMPARISON: None FINDINGS: There are acute comminuted fractures distally at the radius and ulna with mild displacement and minimal apex anterior angulation. There is one half shaft width dorsal displacement of the distal radius fracture. No other acute fracture or dislocation seen at the right wrist or right hand. There are scattered degenerative changes without erosion. IMPRESSION: Acute fractures at the distal radius and ulna. ACT 112: Negative or not required by law. Electronically signed by: Zachary Lizarraga M.D. 05/26/2024 10:[address] 05/26/24 09:03 CT head/brain wo con CLINICAL HISTORY: fall. TECHNIQUE: Multiple axial CT images of the head were obtained without contrast. A dose lowering technique was utilized adhering to the principles of ALARA. CT DOSE: 1161 COMPARISON: 03/02/2024 FINDINGS: No intracranial hemorrhage seen. No mass effect, midline shift, or hydrocephalus. Stable mild chronic small vessel ischemic changes. Stable small focal hypodensity medial right temporal lobe, prominent perivascular space versus old infarction. Stable small hypodensity centrally in the upper jess, likely old infarction. Stable globus pallidus calcifications, unremarkable in this age group. No skull fracture seen. Visualized paranasal sinuses and mastoid air cells are clear. IMPRESSION: No acute findings. ACT 112: Negative or not required by law. The above report was generated using voice recognition software. It may contain grammatical, syntax or spelling errors. Electronically signed by: Zachary Lizarraga M.D. 05/26/2024 12:11 PM Wrist X-Ray 05/26/24 09:03 XR wrist RT min 3V routine, XR hand RT min 3V routine CLINICAL HISTORY: r wrist pain COMPARISON: None FINDINGS: There are acute comminuted fractures distally at the radius and ulna with mild displacement and minimal apex anterior angulation. There is one half shaft width dorsal displacement of the distal radius fracture. No other acute fracture or dislocation seen at the right wrist or right hand. There are scattered degenerative changes without erosion. IMPRESSION: Acute fractures at the distal radius and ulna. ACT 112: Negative or not required by law. Electronically signed by: Zachary Lizarraga M.D. 05/26/2024 10:26 AM Discharge Plan Visit Data Chief Complaint: Fall Stated Complaint: FALL, WRIST PAIN ED Provider: Jones Ríos Discharge Problem: Open fracture of right wrist, Fall Patient Disposition: Being Evaluated by Surgeon Discharge Instructions Interventions: ED Discharge Assessment Last Done: 05/26/24 14:53 Forms Stand Alone Forms: My [facility] ralali Prescriptions Prescriptions: No Action magnesium 200 mg tablet 200 mg PO DAILY albuterol sulfate 90 mcg/actuation HFA aerosol inhaler 2 puff inhalation Q6H PRN (Reason: shortness of breath or wheezing) Qty: 18 1RF tolterodine 4 mg capsule,extended release 24hr 4 mg PO DAILY Qty: 90 3RF clopidogrel [Plavix] 75 mg tablet 75 mg PO DAILY Qty: 90 1RF diltiazem HCl 120 mg capsule,extended release 12 hr 120 mg PO DAILY Qty: 90 1RF atorvastatin 80 mg tablet 80 mg PO DAILY Qty: 90 0RF estradiol [Estrace] 0.01 % (0.1 mg/gram) cream 1 g vaginal 2XWK Qty: 42.5 0RF Rx Instructions: Apply a pea-sized amount to vaginal opening two times per week gabapentin 100 mg capsule 100 mg PO TID Qty: 90 2RF aspirin 81 mg tablet,delayed release (DR/EC) 81 mg PO DAILY cholecalciferol (vitamin D3) [Vitamin D3] 25 mcg (1,000 unit) Tablet 25 mcg PO QAM multivitamin Tablet 1 tab PO QAM azelastine 137 mcg (0.1 %) aerosol,spray 2 spray INTRANASAL DAILY amoxicillin 500 mg capsule 2,000 mg PO UD PRN (Reason: dental appointment) Rx Instructions: not on faxed medication list, unable to verify methenamine hippurate 1 gram tablet 1 g PO UD Rx Instructions: 1 g po bid. Listed on faxed medication list, last filled 01/16 90 day supply cyclobenzaprine 5 mg tablet 5 mg PO TID PRN (Reason: Muscle Spasm) tavaborole 5 % Solution With Applicator 1 applic TOPICAL DAILY nitrofurantoin macrocrystal 50 mg capsule 50 mg PO UD Rx Instructions: 05/26- Not on faxed list. last filled 03/11 90 day supply; 50 mg po hs Take one capsule daily at bedtime. Referrals Referrals: Andres Garcia MD [Primary Care Provider] - Discharge Problem: Open fracture of right wrist Qualifiers: Encounter type: initial encounter Qualified Code(s): S62.101B - Fracture of unspecified carpal bone, right wrist, initial encounter for open fracture Fall Qualifiers: Encounter type: initial encounter Qualified Code(s): W19.XXXA - Unspecified fall, initial encounter
[2024-05-26] MEDS: KETOROLAC TROMETHAMINE 15 MG/ML VIAL IV ONE (09:21)
[2024-05-26 09:25] LABS: Basophils # (auto) 0.05 K/uL (0.00-0.20); Basophils % (auto) 0.9 %; Eosinophils # (auto) 0.23 K/uL (0.00-0.50); Eosinophils % (auto) 4.1 %; Hematocrit (blood only) 44.9 % (37.0-47.0); Immature Granulocytes # (auto) 0.04 K/uL (0.01-0.20); Immature Granulocytes % (auto) 0.7 %; Lymphocytes # (auto) 1.26 K/uL (1.20-3.40); Lymphocytes % (auto) 22.5 %; Mean Corpuscular Hgb Conc 33.4 g/dL (32.0-36.0); Mean Corpuscular Volume 83.8 fL (80.0-100.0); Mean Platelet Volume 10.2 fL (9.4-12.4); Monocytes # (auto) 0.49 K/uL (0.11-0.59); Monocytes % (auto) 8.8 %; Neutrophils # (auto) 3.52 K/uL (1.40-6.50); Platelet Count 284 K/uL (130-400); RDW Coefficient of Variation 14.8 % (11.5-14.5); RDW Standard Deviation 45.3 fL (36.4-46.3); Red Blood Count 5.36 M/uL (4.20-5.40); White Blood Count 5.59 K/ul (4.8-10.8)
[2024-05-26 09:40] LABS: Albumin Level 4.2 gm/dl (3.4-5.0); Bilirubin,Total 0.7 mg/dl (0.2-1.0); Potassium 3.8 mmol/L (3.5-5.1)
[2024-05-26 09:46] LABS: Albumin Globulin Ratio 1.4 (0.9-2); BUN Creatinine Ratio 22.6 (10-20); Creatinine Clr Calc Pharmacy 70.6 ml/min; Globulin 3.1 gm/dl (2.5-4.0); Total Protein 7.3 gm/dl (6.0-8.3)
--- NOTE | 2024-05-26 10:28 | XRay Report ---
XR wrist RT min 3V routine, XR hand RT min 3V routine CLINICAL HISTORY: r wrist pain COMPARISON: None FINDINGS: There are acute comminuted fractures distally at the radius and ulna with mild displacemen t and minimal apex anterior angulation. There is one half shaft width dorsal displacement of the dist al radius fracture. No other acute fracture or dislocation seen at the right wrist or right hand. The re are scattered degenerative changes without erosion. IMPRESSION: Acute fractures at the distal radius and ulna. ACT 112: Negative or not required by law. Electronically signed by: Zachary Lizarraga M.D. 05/26/2024 10:26 AM
[2024-05-26 10:58] LABS: Appearance Urine Slightly Cloudy (Clear); Bilirubin Urine Negative (Negative); Blood Urine Negative (Negative); Color Urine Yellow; Glucose Urine UA Negative (Negative); Ketones Urine Negative (Negative); Leukocyte Esterase Urine Negative (Negative); Nitrite Urine Negative (Negative); Protein Urine Negative (Negative); Specific Gravity Urine 1.015 (1.000-1.030); Urobilinogen Urine Negative (Negative)
--- NOTE | 2024-05-26 12:13 | CT Scan Report ---
CT head/brain wo con CLINICAL HISTORY: fall. TECHNIQUE: Multiple axial CT images of the head were obtained without contrast. A dose lowering tech nique was utilized adhering to the principles of ALARA. CT DOSE: 1161 COMPARISON: 03/02/2024 FINDINGS: No intracranial hemorrhage seen. No mass effect, midline shift, or hydrocephalus. Stable mi ld chronic small vessel ischemic changes. Stable small focal hypodensity medial right temporal lobe, prominent perivascular space versus old infarction. Stable small hypodensity centrally in the upper p ons, likely old infarction. Stable globus pallidus calcifications, unremarkable in this age group. No skull fracture seen. Visualized paranasal sinuses and mastoid air cells are clear. IMPRESSION: No acute findings. ACT 112: Negative or not required by law. The above report was generated using voice recognition software. It may contain grammatical, syntax o r spelling errors. Electronically signed by: Zachary Lizarraga M.D. 05/26/2024 12:11 PM
--- NOTE | 2024-05-26 12:37 | CT Scan Report ---
CT cervical spine wo con CT DOSE: 1161.04 mGy.cm CLINICAL HISTORY: 84 years-old Female with fall. Acute neck injury status post fall COMPARISON: Head CT of same day, CT neck 12/25/2022 TECHNIQUE: Multiple axial CT images of the cervical spine were obtained without contrast. A dose low ering technique was utilized adhering to the principles of ALARA. FINDINGS: Straightening of the normal cervical lordosis. Multilevel moderate to severe degenerative c hanges of the cervical spine. 4 mm anterolisthesis C7 on T1 is likely secondary to the chronic severe facet arthrosis. No acute fracture or subluxation identified. There is severe degeneration of the te mporal mandibular joints. The cervical soft tissues appear unremarkable. The visualized lung apices appear clear. IMPRESSION: No acute cervical spine fracture or subluxation identified. ACT 112: Negative or not required by law. The above report was generated using voice recognition software. It may contain grammatical, syntax o r spelling errors. Electronically signed by: Juan J Burton M.D. 05/26/2024 12:34 PM
[2024-05-26] MEDS ORDERED: PROPOFOL IV EMULSION 10 MG/ML 20 ML VIAL IV ONE (14:38)
[2024-05-26] MEDS ORDERED: DEXAMETHASONE SOD INJ 4 MG/ML VIAL ONE (14:39)
[2024-05-26] MEDS ORDERED: fentaNYL citrate PF 100 MCG/2 ML VIAL ONE ×2 (14:39→17:33)
[2024-05-26] MEDS ORDERED: MIDAZOLAM HCL 1 MG/ML 2ML VIAL ONE (14:39)
[2024-05-26] MEDS ORDERED: ONDANSETRON INJ 2 MG/ML 2 ML VIAL ONE (14:40)
--- NOTE | 2024-05-26 14:42 | Orthopedic Consultation ---
Date of Consultation May 26, 2024 Assessment & Plan (1) Fracture of radius, distal, right, open: The patient and her son were educated regarding today's findings. Conservative care measures were discussed. Options for treatment were discussed at length. She would like to proceed with irrigation and debridement as well as ORIF. She has been n.p.o. since last night. I have ordered Ancef 2 g IV prior to the OR. Informed written consent has been obtained. She will likely be in the hospital for a few nights and understands this. She is currently asymptomatic of any COVID-19 or influenza symptoms. The patient was seen in conjunction with Dr. Avila, who also evaluated the patient and concurred with today's treatment plan. Supervising Physician Co-Signing Physician Notes I, Dr. Avila, saw and examined the patient with my PA and agree with the above findings and plan of care I developed and discussed with my PA. History of Present Illness Reason for Consultation: Right wrist open distal radius fracture Requesting Physician: Richard Avila MD Attending Physician: Dr. Ríos History of Present Illness This 84-year-old female With a history of peripheral neuropathy, lumbar back pain, sciatica, hypothyroidism, previous CVA, spinal stenosis, scoliosis, osteoarthritis, anxiety, incontinence, asthma, hypertension, dyslipidemia, recurrent UTIs, venous insufficiency, and basal cell carcinoma, is seen today in the ED for evaluation of her right wrist. The patient states she was in her kitchen this morning and was feeling normal. She was about to get a cup of coffee. She was walking 1 direction but looked back towards the sink. She lost her balance and fell. She is not sure why she lost her balance. She remembers striking the counter and bouncing to the floor. There was immediate onset of pain in her right wrist. [id number]. She denies any loss of conscious. She denies any headache. No other areas of severe discomfort. She describes some soreness in her right elbow. 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 She denies any numbness or tingling in the right arm. Her son is with her today. Allergies Allergy/AdvReac Type Severity Reaction Status Date / Time azithromycin Allergy Severe Itching Verified 05/26/24 15:07 [From Zithromax Z-Oleg] oxycodone Allergy Severe Delirium Verified 05/26/24 15:07 meperidine AdvReac Severe DIFFICULTY Verified 05/26/24 15:07 WAKING celecoxib [From Celebrex] AdvReac Intermediate lightheaded, Verified 05/26/24 15:07 tingling ciprofloxacin AdvReac Intermediate Arthalgia, Verified 05/26/24 15:07 myalgia hydrocodone AdvReac Intermediate Anxiety Verified 05/26/24 15:07 kenalog Allergy Mild Itching Uncoded 05/26/24 15:07 Home Medications Medication Instructions Recorded Confirmed Type cholecalciferol (vitamin D3) 25 25 mcg PO QAM 11/06/19 05/26/24 History mcg (1,000 unit) tablet (Vitamin D3) multivitamin 1 tab PO QAM 11/06/19 05/26/24 History albuterol sulfate 90 mcg/actuation 2 puff inhalation Q6H PRN 06/29/21 05/26/24 Rx aerosol inhaler shortness of breath or wheezing #18 grams aspirin 81 mg tablet,delayed 81 mg PO DAILY 07/02/22 05/26/24 History release magnesium 200 mg tablet 200 mg PO DAILY 11/14/22 05/26/24 History azelastine 137 mcg (0.1 %) nasal 2 spray intranasal DAILY 07/18/23 05/26/24 History spray tolterodine 4 mg capsule,extended 4 mg PO DAILY #90 caps 08/22/23 05/26/24 Rx release 24 hr clopidogrel 75 mg tablet (Plavix) 75 mg PO DAILY #90 tabs 02/14/24 05/26/24 Rx amoxicillin 500 mg capsule 2,000 mg PO UD PRN dental 03/02/24 05/26/24 History appointment diltiazem HCl 120 mg 120 mg PO DAILY #90 caps 03/26/24 05/26/24 Rx capsule,extended release 12 hr atorvastatin 80 mg tablet 80 mg PO DAILY #90 tabs 04/17/24 05/26/24 Rx estradiol 0.01% (0.1 mg/gram) 1 g vaginal 2XWK #42.5 grams 04/23/24 05/26/24 Rx vaginal cream (Estrace) gabapentin 100 mg capsule 100 mg PO TID #90 caps 04/23/24 05/26/24 Rx cyclobenzaprine 5 mg tablet 5 mg PO TID PRN Muscle Spasm 05/26/24 05/26/24 History methenamine hippurate 1 gram tablet 1 g PO UD 05/26/24 05/26/24 History nitrofurantoin macrocrystal 50 mg 50 mg PO UD 05/26/24 05/26/24 History capsule tavaborole 5 % topical solution 1 applic topical DAILY 05/26/24 05/26/24 History with applicator Patient History Medical History (Updated 05/26/24 @ 15:13 by Tyshawn Moreno MD) Cerebrovascular accident (CVA) Asthma Rotator cuff tear Leg pain, bilateral Balance disorder Weakness High triglycerides Paresthesias in left hand Bilateral shoulder pain Constipation Chronic rhinitis Neuropathy Bilateral feet - on gabapentin Does have ongoing left sided "nerve pain" - will be following neuro 10/04 Hx of herpes zoster Approximately 2019- has had nerve pain since that time Varicose veins of bilateral lower extremities with other complications S/p left leg ablation of GSV as well as stab phlebectomies of left LE 1.5 years ago while in [place] Follows with Dr Manzanares- last seen 08/2021- follow up PRN Actinic keratosis Rotator cuff dysfunction left Senile lentigo Varicose veins of anus or rectum No issues per patient Surgical History History of loop recorder S/p reverse total shoulder arthroplasty History of total knee arthroplasty History of colonoscopy History of carpal tunnel surgery of left wrist Hx of hernia repair H/O: hysterectomy Family History Father Bladder cancer Deafness Mother Hypertension Grandmother (Maternal) Diabetes Social History Smoking Status: Former smoker Tobacco Type: Cigarettes Age Started Using Tobacco: 23; Age Quit Using Tobacco: 27; packs per day: 0; Second Hand Exposure: No; Do You Dip or Chew Tobacco: No; Hx Alcohol Use: No Hx Substance Use: No Preferred Language: Nepali Communication Ability: Effective Order Picker Required: No Beliefs That Will Affect Care: [facility] marital status: / Current Living Situation: Alone Feels Safe at Home: Yes caffeine: Yes (2 cups in the AM) Dental Care, Regularly: Yes Seatbelt Use: always Assistive Devices: Cane, Raised Toilet Seat and Walker Review of Systems Review of Systems: All systems reviewed & are unremarkable except as noted in HPI & below Physical Exam Physical Exam: general: Well-developed, well-nourished, elderly female, in no acute distress. Obvious discomfort. Laying in the bed. Alert and oriented. Conversive. Skin: Warm and dry with good turgor. No rashes. Obvious deformity is present at her right wrist. Ecchymosis and edema are present. She has 2 puncture bahena present on the volar aspect of her right wrist. Bleeding is controlled. No foreign material is noted. Heart: Heart RRR. No MGR. Peripheral pulses are 2+. Lungs: Lungs are clear to auscultation. No crackles rhonchi or wheezing. Good air movement. The patient is able to take a deep breath. Abdomen: Abdomen was inspected, auscultated, and palpated. Mildly obese. Bowel sounds present x 4. Soft, nontender to palpation. No hepato-splenomegaly. No masses noted. No rebound. Musculoskeletal: Right upper extremity evaluation reveals the obvious deformity at her right wrist. Ecchymosis and edema are present. It is dorsally angulated. She has intact motor function of her fingers though this causes pain at her wrist. She is able to extend, flex, and AB duct her digits. She is able to cross her fingers and lightly oppose. There is no pain with palpation over the fingers or hand. There is significant discomfort with palpation at her wrist. She describes soreness with palpation over her radial head and elbow. There is also baseline soreness with palpation of the right shoulder due to her arthritis. Range of motion of the elbow is limited secondary to wrist pain. Range of motion of the wrist was not attempted. Range of motion of the shoulder is limited secondary to her osteoarthritis. Neurologic: Gross sensation is intact across the right upper extremity by soft touch. Radial, median, and ulnar nerve functions are intact for sensory. Results & Data Vital Signs (Past 12 Hours) Vital Signs Temp Pulse Pulse Resp BP BP Pulse Ox 05/26/24 14:00 81 20 158/77 H 99 05/26/24 13:08 79 05/26/24 13:00 80 20 178/90 H 98 05/26/24 12:00 79 20 179/93 H 98 05/26/24 11:00 75 20 163/88 H 96 05/26/24 10:00 69 18 165/87 H 97 05/26/24 09:11 05/26/24 09:11 36.6 C 73 18 173/116 H 100 05/26/24 09:01 75 O2 Del Method 05/26/24 14:00 Room Air 05/26/24 13:08 05/26/24 13:00 Room Air 05/26/24 12:00 Room Air 05/26/24 11:00 Room Air 05/26/24 10:00 Room Air 05/26/24 09:11 Room Air 05/26/24 09:11 Room Air 05/26/24 09:01 Laboratory Results CBC obtained this morning shows a normal white count. Normal H&H. Normal platelets. Normal electrolytes. Normal BUN and creatinine. Normal LFTs. Normal protein and albumin. UA is entirely unremarkable. Diagnostic Findings Wrist x-ray obtained today shows a comminuted distal radius fracture with one half the with displacement dorsally. Head and neck CTs were obtained today and are unremarkable. (1) Fracture of radius, distal, right, open Encounter type: initial encounter Fracture morphology: Colles' Open fracture type: open type I or II Qualified Code(s): S52.531B - Colles' fracture of right radius, initial encounter for open fracture type I or II
[2024-05-26] MEDS: ceFAZolin 2,000 MG/15 ML IV PUSH IV ONE (14:44)
[2024-05-26] MEDS: BUPIVACAINE 0.5 % 5 MG/1 ML MPF 30ML VIAL ONE ×2 (14:44→16:41)
[2024-05-26] MEDS: LIDOCAINE 2% LOCAL 50 ML VIAL ONE (14:44)
[2024-05-26] MEDS: KETOROLAC TROMETHAMINE 15 MG/ML VIAL ONE (14:44)
[2024-05-26] MEDS: ceFAZolin 2000MG 2,000 MG/15 ML SYR IV STA (14:45)
[2024-05-26] MEDS: LACTATED RINGER'S 1,000 ML IV SCH (15:06)
--- NOTE | 2024-05-26 15:14 | Anesthesiology Consultation ---
Date of Service May 26, 2024 Assessment & Plan (1) Encounter for pre-operative examination: Chart Review Chart Review: Acceptable Risk for Surgery History Surgery Operation Date: 05/26/24 13:40 Proposed Procedures p Right Distal Radius Incision and Debridement, Possible Open Reduction Internal Fixation - Freeman Siva Avila MD Height/Weight Height: 5 ft 8 in Weight: 71.9 kg Allergies Allergy/AdvReac Type Severity Reaction Status Date / Time azithromycin Allergy Severe Itching Verified 05/26/24 15:07 [From Zithromax Z-Oleg] oxycodone Allergy Severe Delirium Verified 05/26/24 15:07 meperidine AdvReac Severe DIFFICULTY Verified 05/26/24 15:07 WAKING celecoxib [From Celebrex] AdvReac Intermediate lightheaded, Verified 05/26/24 15:07 tingling ciprofloxacin AdvReac Intermediate Arthalgia, Verified 05/26/24 15:07 myalgia hydrocodone AdvReac Intermediate Anxiety Verified 05/26/24 15:07 kenalog Allergy Mild Itching Uncoded 05/26/24 15:07 Medications Home Medications Medication Instructions Recorded Confirmed Last Taken cholecalciferol (vitamin D3) 25 25 mcg PO QAM 11/06/19 05/26/24 01/12/23 mcg (1,000 unit) tablet (Vitamin D3) multivitamin 1 tab PO QAM 11/06/19 05/26/24 01/12/23 albuterol sulfate 90 mcg/actuation 2 puff inhalation Q6H PRN 06/29/21 05/26/24 10/20/21 06:00 aerosol inhaler shortness of breath or wheezing #18 grams aspirin 81 mg tablet,delayed 81 mg PO DAILY 07/02/22 05/26/24 01/12/23 release magnesium 200 mg tablet 200 mg PO DAILY 11/14/22 05/26/24 01/12/23 azelastine 137 mcg (0.1 %) nasal 2 spray intranasal DAILY 07/18/23 05/26/24 Unknown spray tolterodine 4 mg capsule,extended 4 mg PO DAILY #90 caps 08/22/23 05/26/24 Unknown release 24 hr clopidogrel 75 mg tablet (Plavix) 75 mg PO DAILY #90 tabs 02/14/24 05/26/24 Unknown amoxicillin 500 mg capsule 2,000 mg PO UD PRN dental 03/02/24 05/26/24 Unknown appointment diltiazem HCl 120 mg 120 mg PO DAILY #90 caps 03/26/24 05/26/24 Unknown capsule,extended release 12 hr atorvastatin 80 mg tablet 80 mg PO DAILY #90 tabs 04/17/24 05/26/24 Unknown estradiol 0.01% (0.1 mg/gram) 1 g vaginal 2XWK #42.5 grams 04/23/24 05/26/24 Unknown vaginal cream (Estrace) gabapentin 100 mg capsule 100 mg PO TID #90 caps 04/23/24 05/26/24 Unknown cyclobenzaprine 5 mg tablet 5 mg PO TID PRN Muscle Spasm 05/26/24 05/26/24 Unknown methenamine hippurate 1 gram tablet 1 g PO UD 05/26/24 05/26/24 Unknown nitrofurantoin macrocrystal 50 mg 50 mg PO UD 05/26/24 05/26/24 Unknown capsule tavaborole 5 % topical solution 1 applic topical DAILY 05/26/24 05/26/24 Unknown with applicator Active Medications Generic Name Dose Route Start Last Admin Trade Name Freq PRN Reason Stop Dose Admin Lactated Ringer's 1,000 mls @ 15 mls/hr 05/26/24 14:45 05/26/24 15:06 Lr IV 05/27/24 14:44 15 mls/hr .Q24H SARAY Administration Past Medical History Medical History (Updated 05/26/24 @ 15:13 by Tyshawn Moreno MD) Cerebrovascular accident (CVA) Asthma Rotator cuff tear Leg pain, bilateral Balance disorder Weakness High triglycerides Paresthesias in left hand Bilateral shoulder pain Constipation Chronic rhinitis Neuropathy Bilateral feet - on gabapentin Does have ongoing left sided "nerve pain" - will be following neuro 10/04 Hx of herpes zoster Approximately 2018- has had nerve pain since that time Varicose veins of bilateral lower extremities with other complications S/p left leg ablation of GSV as well as stab phlebectomies of left LE 1.5 years ago while in [place] Follows with Dr Manzanares- last seen 08/2021- follow up PRN Actinic keratosis Rotator cuff dysfunction left Senile lentigo Varicose veins of anus or rectum No issues per patient Past Family History Family History Father Bladder cancer Deafness Mother Hypertension Grandmother (Maternal) Diabetes Past Surgical History Surgical History History of loop recorder S/p reverse total shoulder arthroplasty History of total knee arthroplasty History of colonoscopy History of carpal tunnel surgery of left wrist Hx of hernia repair H/O: hysterectomy Social History Smoking Status: Former smoker tobacco type: cigarettes Do You Dip or Chew Tobacco: No Hx Alcohol Use: No Alcohol type: wine alcohol intake frequency: holidays/special occasions only Hx Substance Use: No substance use type: does not use Physical Exam Vital Signs Last Vital Signs Temp 36.6 C 05/26/24 09:11 Pulse 80 05/26/24 14:53 Resp 18 05/26/24 14:53 BP 158/77 H 05/26/24 14:00 Pulse Ox 98 05/26/24 14:53 O2 Del Method Room Air 05/26/24 14:53 Testing Laboratory Results 05/26/24 09:18 05/26/24 09:18 Urine Color Yellow 05/26/24 Unknown Urine Appearance Slightly Cloudy (Clear) 05/26/24 Unknown Urine pH 8.0 (4.5-7.5) H 05/26/24 Unknown Ur Specific [place] 1.015 (1.000-1.030) 05/26/24 Unknown Urine Protein Negative (Negative) 05/26/24 Unknown Urine Glucose (UA) Negative (Negative) 05/26/24 Unknown Urine Ketones Negative (Negative) 05/26/24 Unknown Urine Nitrite Negative (Negative) 05/26/24 Unknown Ur Leukocyte Esterase Negative (Negative) 05/26/24 Unknown Electrocardiogram Date: 03/02/24 Findings: + NSR @ (79) and + NSST changes Echocardiogram Date: 03/03/24 EF: 55-60% LV Function: normal Valvular Disease: + no significant valvular disease
[2024-05-26] MEDS: ACETAMINOPHEN 1,000 MG/100 ML VIAL IV STA (15:25)
[2024-05-26] MEDS ORDERED: ONDANSETRON INJ 2 MG/ML 2 ML VIAL IV PRN (15:37)
[2024-05-26] MEDS ORDERED: fentaNYL citrate PF 100 MCG/2 ML VIAL IV PRN (15:37)
[2024-05-26] MEDS ORDERED: ATROPINE SULFATE 0.1 MG/ML 10ML SYR IV PRN (15:37)
[2024-05-26] MEDS ORDERED: HYDROmorphone INJ 1 MG/ML SYRINGE IV PRN (15:37)
[2024-05-26] MEDS ORDERED: ePHEDrine sulfate 50 MG/ML AMP IV PRN (15:37)
[2024-05-26] MEDS ORDERED: LIDOCAINE 2% 2 ML VIAL/AMP(20MG/ML) INFIL ONE (16:03)
[2024-05-26] MEDS ORDERED: LABETALOL HCL IV 5 MG/ML 20ML IV ONE (16:42)
--- NOTE | 2024-05-26 17:29 | History & Physical Report ---
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 #Open fracture orthopedics did repair in the operating room she was given Ancef prior to surgery. #CVA. Patient's previously on aspirin Plavix atorvastatin and diltiazem. Aspirin and Plavix will be held at least until the . Atorvastatin diltiazem will be continued. #Neuropathy lower extremities suspected to be from lumbar stenosis PT OT evaluation to be undertaken for safety to return home #Recurrent urinary tract infections patient previously on with Anamine initial urinary screen is negative History of Present Illness Primary Care Provider: Andres Garcia MD 84-year-old female presents to the emergency department after falling on outstretched hands. Patient with history of previous stroke and ataxia. She also has neuropathy in her legs. She fell backwards sustaining an open fracture of her wrist taken to the operating room. Patient has a history of chronic recurrent urinary tract infections and takes preventative methAnamine. She takes aspirin atorvastatin Plavix and diltiazem for cardiovascular risk reduction. Allergies Allergy/AdvReac Type Severity Reaction Status Date / Time azithromycin Allergy Severe Itching Verified 05/26/24 15:07 [From Zithromax Z-Oleg] oxycodone Allergy Severe Delirium Verified 05/26/24 15:07 triamcinolone [From Kenalog] Allergy Intermediate Itching Verified 05/26/24 23:04 and red skin meperidine AdvReac Severe DIFFICULTY Verified 05/26/24 15:07 WAKING celecoxib [From Celebrex] AdvReac Intermediate lightheaded, Verified 05/26/24 15:07 tingling ciprofloxacin AdvReac Intermediate Arthalgia, Verified 05/26/24 15:07 myalgia hydrocodone AdvReac Intermediate Anxiety Verified 05/26/24 15:07 Home Medications Medication Instructions Recorded Confirmed Type cholecalciferol (vitamin D3) 25 25 mcg PO QAM 11/06/19 05/26/24 History mcg (1,000 unit) tablet (Vitamin D3) multivitamin 1 tab PO QAM 11/06/19 05/26/24 History albuterol sulfate 90 mcg/actuation 2 puff inhalation Q6H PRN 06/29/21 05/26/24 Rx aerosol inhaler shortness of breath or wheezing #18 grams aspirin 81 mg tablet,delayed 81 mg PO DAILY 07/02/22 05/26/24 History release magnesium 200 mg tablet 200 mg PO DAILY 11/14/22 05/26/24 History azelastine 137 mcg (0.1 %) nasal 2 spray intranasal DAILY 07/18/23 05/26/24 History spray tolterodine 4 mg capsule,extended 4 mg PO DAILY #90 caps 08/22/23 05/26/24 Rx release 24 hr clopidogrel 75 mg tablet (Plavix) 75 mg PO DAILY #90 tabs 02/14/24 05/26/24 Rx amoxicillin 500 mg capsule 2,000 mg PO UD PRN dental 03/02/24 05/26/24 History appointment diltiazem HCl 120 mg 120 mg PO DAILY #90 caps 03/26/24 05/26/24 Rx capsule,extended release 12 hr atorvastatin 80 mg tablet 80 mg PO DAILY #90 tabs 04/17/24 05/26/24 Rx estradiol 0.01% (0.1 mg/gram) 1 g vaginal 2XWK #42.5 grams 04/23/24 05/26/24 Rx vaginal cream (Estrace) gabapentin 100 mg capsule 100 mg PO TID #90 caps 04/23/24 05/26/24 Rx cyclobenzaprine 5 mg tablet 5 mg PO TID PRN Muscle Spasm 05/26/24 05/26/24 History methenamine hippurate 1 gram tablet 1 g PO UD 05/26/24 05/26/24 History nitrofurantoin macrocrystal 50 mg 50 mg PO UD 05/26/24 05/26/24 History capsule tavaborole 5 % topical solution 1 applic topical DAILY 05/26/24 05/26/24 History with applicator Past Med/Surg History Problem List (Updated 05/26/24 @ 15:13 by Tyshawn Moreno MD) H/O: stroke Bilateral foot pain Gait abnormality Fall from standing Fall Stroke-like symptoms Fall (Acute) Open fracture of right wrist (Acute) Fracture of radius, distal, right, open Peripheral neuropathy Lumbar back pain (Acute) Lumbar spondylosis Sciatica (Acute) Hypothyroidism 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) Lumbar spinal stenosis Scoliosis of lumbar region due to degenerative disease of spine in adult Degenerative spondylolisthesis L3-4 Disc degeneration, lumbar Pelvic floor relaxation Encounter for interrogation of cardiac recorder Neuropathic pain Glenohumeral arthritis Anxiety Hyperlipidemia Incontinence Status post stroke Arthritis of left hip 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 Lumbar radiculopathy Encounter for pre-operative examination Hypertension (Chronic) Dyslipidemia Urinary incontinence (Chronic) Chronic bronchitis (Chronic) Allergic rhinitis (Chronic) Mixed incontinence urge and stress History of recurrent UTI (urinary tract infection) (Chronic) Hyperglobulinemia Recurrent UTI (Chronic) Hyperglycemia Vaginal atrophy Hypercholesterolemia Osteoarthritis (Acute) Paresthesia of both hands left worse than right Cervical radiculopathy Neuropathy (Chronic) Paresthesia of both feet Lumbar back pain with radiculopathy affecting lower extremity Left hip pain Venous insufficiency Hand pain, left Left knee pain Osteoarthritis of right hip History of bilateral knee replacement Arthritis of left hip Medical History (Updated 05/26/24 @ 15:13 by Tyshawn Moreno MD) Cerebrovascular accident (CVA) Asthma Rotator cuff tear Leg pain, bilateral Balance disorder Weakness High triglycerides Paresthesias in left hand Bilateral shoulder pain Constipation Chronic rhinitis Neuropathy Bilateral feet - on gabapentin Does have ongoing left sided "nerve pain" - will be following neuro 10/04 Hx of herpes zoster Approximately 2018- has had nerve pain since that time Varicose veins of bilateral lower extremities with other complications S/p left leg ablation of GSV as well as stab phlebectomies of left LE 1.5 years ago while in [place] Follows with Dr Manzanares- last seen 08/2021- follow up PRN Actinic keratosis Rotator cuff dysfunction left Senile lentigo Varicose veins of anus or rectum No issues per patient Surgical History History of loop recorder S/p reverse total shoulder arthroplasty History of total knee arthroplasty History of colonoscopy History of carpal tunnel surgery of left wrist Hx of hernia repair H/O: hysterectomy Family History Father Bladder cancer Deafness Mother Hypertension Grandmother (Maternal) Diabetes Social History Smoking Status: Former smoker Tobacco Type: Cigarettes Age Started Using Tobacco: 23; Age Quit Using Tobacco: 27; packs per day: 0; Second Hand Exposure: No; Do You Dip or Chew Tobacco: No; Hx Alcohol Use: Yes Alcohol type: wine and hard liquor Alcohol type Comment: occasionally Hx Substance Use: No Preferred Language: Belarusian Communication Ability: Effective 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 She is good distal capillary refill to her fingers Cardiac exam is regular lungs are clear abdomen NABS and soft Neurology cannot be assessed given her sedation Results & Data Results & Data Vital Signs (Past 12 Hours) Vital Signs Temp Pulse Pulse Resp BP BP Pulse Ox 05/26/24 15:07 99.3 F 84 20 170/89 H 98 05/26/24 14:53 80 18 98 05/26/24 14:00 81 20 158/77 H 99 05/26/24 13:08 79 05/26/24 13:00 80 20 178/90 H 98 05/26/24 12:00 79 20 179/93 H 98 05/26/24 11:00 75 20 163/88 H 96 05/26/24 10:00 69 18 165/87 H 97 05/26/24 09:11 05/26/24 09:11 97.9 F 73 18 173/116 H 100 05/26/24 09:01 75 O2 Del Method 05/26/24 15:07 Room Air 05/26/24 14:53 Room Air 05/26/24 14:00 Room Air 05/26/24 13:08 05/26/24 13:00 Room Air 05/26/24 12:00 Room Air 05/26/24 11:00 Room Air 05/26/24 10:00 Room Air 05/26/24 09:11 Room Air 05/26/24 09:11 Room Air 05/26/24 09:01 Laboratory Results Reviewed CBC reviewed chemistry Ordered urine culture PG Care Time/CCT Total # of Minutes Spent Total Time Spent with Patient: Total time spent is greater than 50% in coordination of care (as documented) at patient's floor/unit and/or counseling patient: Coding Level of Care Code 16355 INT INP/OBS CARE 3/75MIN Diagnoses Open fracture of right wrist S62.101B Encounter type: initial encounter 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
[2024-05-26] MEDS: BUPIVACAINE/EPINEPHRINE 0.5% MPF 1:200,000 30 ML VIAL ONE (18:34)
[2024-05-26] MEDS: LIDOCAINE 1% LOCAL 20 ML VIAL ONE (18:34)
--- NOTE | 2024-05-26 18:48 | Post Operative Brief Note ---
Immediate Post Op Note Date of Surgery May 26, 2024 Pre & Post Diagnosis Operation Date: 05/26/24 13:40 Pre-Op Diagnosis: Open Inarticular Distal Radius Fracture, Distal Ulna Shaft Post-Op Diagnosis: Open Inarticular Distal Radius Fracture, Distal Ulna Shaft I identified the patient and participated in the time-out.: Yes Procedure Operation Date: 05/26/24 13:40 Actual Procedures p Incision and Debridement of Right Wrist, Open Reduction Internal Fixation of Distal Radius and Ulna(Right) - Freeman Avila MD Surgeon Freeman Avila MD [employer] [place] [employer] Leader Svetlana Harris DO was scrubbed out by Svetlana Huynh PA-C after ORIF distal radius Estimated Blood Loss 20 Findings Consistent with Post-Op Diagnosis Fluids 1100 cc Anesthesia Type General Complications none
--- NOTE | 2024-05-26 18:50 | Operative Report ---
Post Operative Report Pre & Post Diagnosis Operation Date: 05/26/24 13:40 Pre-Op Diagnosis: Open Inarticular Distal Radius Fracture, Distal Ulna Shaft Post-Op Diagnosis: Open Inarticular Distal Radius Fracture, Distal Ulna Shaft I identified the patient and participated in the time-out.: Yes Procedure Operation Date: 05/26/24 13:40 Actual Procedures p Incision and Debridement of Right Wrist, Open Reduction Internal Fixation of Distal Radius 2-part intra-articular, and Ulna(Right) - Freeman Avila MD Surgeon Freeman Avila MD Machine Tool Technology Instructor Svetlana Harris DO was scrubbed out by Svetlana Huynh PA-C after ORIF distal radius Estimated Blood Loss 20 Findings See Below Displaced 2-part intra-articular distal radius fracture and displaced distal ulnar shaft fracture, 2 small poke holes volar aspect of the wrist. Fluids 1100 cc Specimens n/a Anesthesia Type General Complications none Indications Patient is a 84 year old female with x-ray and clinical exam findings consistent with an open, unstable, and displaced right wrist fracture. After a lengthy discussion with the patient regarding their treatment options, I recommended that they undergo an I&D, ORIF of her right wrist fracture. The risk of surgery was discussed and include but not limited to: bleeding, nerve damage, infection, failure of the hardware, mal-union, non-union, continued pain, progression of arthritis, decreased activity level, and DVT. They understood all the risks and benefits and wished to proceed with surgery. The informed consent was signed. Description of Procedure Svetlana Huynh PA-C scrubbed out my fellow, Dr. Harris, after the distal radius was finished. They were assisting with retracting, positioning, the I&D, and the ORIF of the ulna, closure, and splinting; due to fellow/resident not available. IMPLANTS: 1) 2.4 mm VA Locking 2 column Volar Plate, 6 hole Head/3 hole shaft (Synthes) 2) 2.4 mm VA Locking Screws (12mm x 2, 20 x 2, 22 x 2) 3) 2.4 mm Cortex Screw (12 mm) 4) 3.0 mm x 28 mm short thread Ti Headless Compression screw (Synthes) PROCEDURE: The patient was taken to the Operating Room and placed in the supine position on the operating table. After general anesthetic was administered, a multidisciplinary time-out was performed identifying my initials on the right upper limb as the correct and operative limb. Prior to the incision being made, 2 grams of intravenous Ancef were given. The splint was removed. The right upper extremity was prepped and draped in the standard sterile fashion. The planned incisions were marked volarly ulnar to the radial artery, and laterally along the ulna. It was injected with a 50:50 mixture of 1% Lidocaine plain and 0.5% Marcaine with epi for a total of 20cc. The limb was then exsanguinated by gravity for 3 minutes before inflating the tourniquet to 250mmHg. The planned incision was made and carried to the FCR. The sheath was incised and the FCR displaced radially to allow for the floor to be incised. Blunt dis section allowed exposure of the Pronator Quadratus, which was torn due to the trauma of the injury. The fracture fragments were debrided to allow for the best reduction with combination of freer, dental pick, [place], irrigation and suction. A reduction maneuver was performed locking the distal fragments to the main proximal fragment. Fluoroscopy was used to confirm the reduced fracture and the plates proper placement. The proximal oblong hole was placed first. Added length was achieved by sliding the plate distally before completely seating the screw. The remaining locking holes proximally and the distal row were placed in the standard fashion, with locking guide and variable locking guide respectively. The wound was copiously irrigated, including the 2 small poke hole wounds volarly. The Pronator Quadratus was closed over the plate distally with 2-0 Vicryl. The distal ulnar shaft fracture was still mobile, but was too distal and transverse to get adequet fixation with a plate and a cannulated headless was utilized. Using fluoroscopy a K-wire was placed from distal to proximal across the fracture site after manually reducing the ulna fracture. The appropriate cannulated drill followed by a counter sink was used. The screw length was measured and then placed in the standard fashion. Final x-rays were taken showing near anatomic reduction. The DRUJ was stable. The tourniquet was deflated. Hemostasis was well maintained. The skin was closed with 4-0 Nylon using horizontal mattress stitch. The limb was cleaned and dried. The incision was covered with Xeroform, 4x4's, ADB, sterile cast padding a resting volar splint and NIYA bandage. The sponge and needle counts were correct. POST-OP INSTRUCTIONS. The patient will be admitted for 48 hours Anc due to open fracture. No lifting with right hand no more than coffee cup. I attest to the content of the Intraoperative Record and any orders documented therein. Any exceptions are noted below.
--- NOTE | 2024-05-26 19:15 | Operative Report ---
Post Operative Report Pre & Post Diagnosis Operation Date: 05/26/24 13:40 Pre-Op Diagnosis: Open Inarticular Distal Radius Fracture, Distal Ulna Shaft Post-Op Diagnosis: Open Inarticular Distal Radius Fracture, Distal Ulna Shaft I identified the patient and participated in the time-out.: Yes Procedure Operation Date: 05/26/24 13:40 Actual Procedures p Incision and Debridement of Right Wrist, Open Reduction Internal Fixation of Distal Radius and Ulna(Right) - Freeman Siva Avila MD Surgeon Richard Avila MD Rn Observation Svetlana Harris DO was scrubbed out by Svetlana Huynh PA-C after ORIF distal radius Estimated Blood Loss 20 Findings Consistent with Post-Op Diagnosis see operative report Specimens none Drains none Complications none Disposition Accompanied Patient To Recovery: Yes Indications This 84 year old female Description of Procedure The patient was taken to the operating room where she was given general anesthesia. She was prepped and draped in the usual sterile fashion. Please see Dr. Avila's operative report for specifics of the procedure. I was present for the second half of the case from initial hardware placement through final wound closure. Assistance was provided in tissue retraction, hemostasis, fracture reduction, hardware placement, final wound closure, and postoperative splinting. The patient was taken to the recovery room in satisfactory condition. I attest to the content of the Intraoperative Record and any orders documented therein. Any exceptions are noted below.
[2024-05-26] MEDS ORDERED: ALBUTEROL HFA 8 GM INHALER INH PRN (20:50)
--- NOTE | 2024-05-26 22:09 | Operative Report ---
Post Operative Report Pre & Post Diagnosis Operation Date: 05/26/24 13:40 Pre-Op Diagnosis: Open Inarticular Distal Radius Fracture, Distal Ulna Shaft Post-Op Diagnosis: Open Inarticular Distal Radius Fracture, Distal Ulna Shaft I identified the patient and participated in the time-out.: Yes Procedure Operation Date: 05/26/24 13:40 Actual Procedures p Incision and Debridement of Right Wrist, Open Reduction Internal Fixation of Distal Radius and Ulna(Right) - Freeman Avila MD Surgeon Freeman Avila MD Warehouse Director Svetlana Harris DO was scrubbed out by Svetlana Huynh PA-C after ORIF distal radius Estimated Blood Loss 20 Findings Consistent with Post-Op Diagnosis Specimens None Description of Procedure Patient was brought to the operative suite, she underwent anesthesia Right upper extremity was prepped and draped in the usual sterile fashion. Surgical timeout performed. Patient underwent ORIF right distal radius and ulna, and incision and debridement of the right wrist. See Dr. Avila's operative report for details. I assisted with the distal radius ORIF and was relieved by Riki Huynh PA-C at that point. I attest to the content of the Intraoperative Record and any orders documented therein. Any exceptions are noted below.
[2024-05-26] MEDS: traMADol HCL 50 MG TABLET PO PRN (22:59)
[2024-05-26] MEDS: GABAPENTIN 100 MG CAP PO SCH (23:00)
[2024-05-26] MEDS: METHENAMINE HIPPURATE 1 GM TAB PO SCH (23:00)
[2024-05-26] MEDS: ceFAZolin 2000MG 2,000 MG/15 ML SYR IV SCH (23:34)
[2024-05-27] MEDS ORDERED: ceFAZolin 3000MG 3,000 MG/72.5 ML BAG IV SCH (06:00)
[2024-05-27] MEDS: ATORVASTATIN 40 MG TAB PO SCH (07:43)
[2024-05-27] MEDS: CHOLECALCIFEROL 25 MCG (1000 UNITS) TAB PO SCH (07:43)
[2024-05-27] MEDS: OXYBUTYNIN CHLORIDE XL 5 MG TABCR PO SCH (07:44)
[2024-05-27] MEDS: MULTIVITAMIN TAB PO SCH (07:44)
[2024-05-27] MEDS: AZELASTINE HCL 0.1% NASAL 200 SPRAYS/27,400 MCG BTL SCH (07:44)
[2024-05-27] MEDS: MAGNESIUM OXIDE 400 MG TAB PO SCH (07:45)
[2024-05-27] MEDS: dilTIAZem HCL 120 MG CAPCR PO SCH (07:45)
--- NOTE | 2024-05-27 07:52 | Fluoroscopy Report ---
FL wrist RT 2V CLINICAL HISTORY: RIGHT CLOSED REDUCTION WRIST COMPARISON STUDY: None FLUOROSCOPY TIME: 82.1 seconds FLUOROSCOPY IMAGES: 2 EXPOSURE DOSE: 1.73 mGy FINDINGS: Fluoroscopic guidance provided for ORIF distal right radius and ulna IMPRESSION: Please refer to the procedure report for evaluation based upon real time fluoroscopic obs ervation [place] 112: Negative or not required by law. Electronically signed by: Saumya Cedeño M.D. 05/27/2024 7:50 AM
--- NOTE | 2024-05-27 08:11 | Hospitalist Progress Note ---
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 CT head negative for acute CVA. #Open fracture RIGHT Wrist Orthopedics consulted, Dr Avila s/p Incision and Debridement of Right Wrist, Open Reduction Internal Fixation of Distal Radius 2-part intra-articular, and Ulna(Right) on 05/26. EBL 20cc Ancef brittany-operative abx UA w/o bacteria but urine cx pending from admission but no symptoms - prior ecoli was sensitive and will f/u for any sx WBC elevation suspected 2nd to acute fracture/surgery, also steroids w/ dexamethasone w/ surgery. Afebrile Hgb stable 15--> 13, acute blood loss/dilutional aspect from surgery suspected Pain control: tramadol 50mg q4h prn. 50mg PO x 1 now, adding tylenol 1gm q8h scheduled for baseline. Monitor to increase tramadol to 100mg if needed but suspect additional benefit from tylenol for baseline control. Could also consider dose Toradol IV if needed as unable to tolerate oxycodone/hydrocodone Bowel regimen: added colace BID, miralax daily and senna HS. Reports constipation issues at baseline and no Bm ~3 days. Monitor with ongoing pain control Vit D acceptable 35.9, can continue usual PO supplementation PT/OT consults pending, CM to follow #CVA Hx of such, on aspirin/plavix at baseline - held for OR but to resume AM 05/28. VSS and mentation at baseline/stable. 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 no sx at this time but will monitor for any/cx Dispo: continued inpatient stay for PT/OT evals and pain control. Hopefully able to dc tomorrow w/ services pending therapy evals unless needing IPR. Updated son Kevin at bedside 05/27 (req call from Dr Avila) Admission and Anticipated Discharge Date Admission Date: May 26, 2024 Supervising Physician Co-Signing Physician Notes The patient was not seen by me. The chart was reviewed. Case discussed with CARMEN Rainey. Agree with assessment and plan Subjective Eval this morning, sitting up in bed. Saad Brown in room. Pain reasonable last evening but increased this morning and did report working with therapy and having some increased pain at present. Arm in sling, will give now dose tramadol as not gotten since early this morning. Not able to tolerate oxycodone/hydrocodone but discussed will also schedule Tylenol for baseline control. Does have issues with constipation at baseline, reports has been ~ 3 days. Discussed escalation in bowel regimen/monitoring. Saad Brown req update from Dr Avila if possible, message sent. Questions/concerns addressed at this time. Physical Exam 2 Physical Exam: 84yo female sitting up in recliner chair , NAD but reporting mild-moderate pain to her right wrist MSK/Neuro:Sling in place to RUE, fingers mobile, dressing c/d/i, cap refill wnl and sensation intact Resp: even/unlabored, no wheezing/rales, on room air CV: RRR, no significant m/r/g, no pitting edema GI: +BS, slight distension but nontender, no guarding/rebound Psych: alert to person/place/time, cooperative Results & Data Results & Data Vital Signs (Past 12 Hours) Vital Signs Temp Pulse Pulse Resp BP Pulse Ox O2 Del Method 05/27/24 07:09 36.8 C 85 16 116/71 96 Room Air 05/27/24 04:47 36.8 C 92 H 12 148/75 H 94 Room Air 05/26/24 23:43 36.8 C 91 H 12 154/76 H 98 Room Air 05/26/24 22:37 36.6 C 86 12 158/80 H 98 Room Air 05/26/24 21:40 36.6 C 80 12 147/72 H 96 Room Air 05/26/24 21:10 36.4 C L 84 12 159/80 H 95 Room Air 05/26/24 20:35 36.6 C 81 18 155/72 H 98 Room Air 05/26/24 20:10 85 16 153/84 H 96 Room Air Laboratory Results 05/27/24 09:26 05/27/24 09:26 Vit D 35.9 Diagnostic Findings Wrist X-Ray 05/26/24 00:00 FL wrist RT 2V CLINICAL HISTORY: RIGHT CLOSED REDUCTION WRIST COMPARISON STUDY: None FLUOROSCOPY TIME: 82.1 seconds FLUOROSCOPY IMAGES: 2 EXPOSURE DOSE: 1.73 mGy FINDINGS: Fluoroscopic guidance provided for ORIF distal right radius and ulna IMPRESSION: Please refer to the procedure report for evaluation based upon real time fluoroscopic observation [place] 112: Negative or not required by law. Electronically signed by: Saumya Cedeño M.D. 05/27/2024 7:[address] 05/26/24 09:03 CT cervical spine wo con CT DOSE: 1161.04 mGy.cm CLINICAL HISTORY: 84 years-old Female with fall. Acute neck injury status post fall COMPARISON: Head CT of same day, CT neck 12/25/2022 TECHNIQUE: Multiple axial CT images of the cervical spine were obtained without contrast. A dose lowering technique was utilized adhering to the principles of ALARA. FINDINGS: Straightening of the normal cervical lordosis. Multilevel moderate to severe degenerative changes of the cervical spine. 4 mm anterolisthesis C7 on T1 is likely secondary to the chronic severe facet arthrosis. No acute fracture or subluxation identified. There is severe degeneration of the temporal mandibular joints. The cervical soft tissues appear unremarkable. The visualized lung apices appear clear. IMPRESSION: No acute cervical spine fracture or subluxation identified. ACT 112: Negative or not required by law. The above report was generated using voice recognition software. It may contain grammatical, syntax or spelling errors. Electronically signed by: Juan J Burton M.D. 05/26/2024 12:[address] 05/26/24 09:03 CT head/brain wo con CLINICAL HISTORY: fall. TECHNIQUE: Multiple axial CT images of the head were obtained without contrast. A dose lowering technique was utilized adhering to the principles of ALARA. CT DOSE: 1161 COMPARISON: 03/02/2024 FINDINGS: No intracranial hemorrhage seen. No mass effect, midline shift, or hydrocephalus. Stable mild chronic small vessel ischemic changes. Stable small focal hypodensity medial right temporal lobe, prominent perivascular space versus old infarction. Stable small hypodensity centrally in the upper jess, likely old infarction. Stable globus pallidus calcifications, unremarkable in this age group. No skull fracture seen. Visualized paranasal sinuses and mastoid air cells are clear. IMPRESSION: No acute findings. ACT 112: Negative or not required by law. The above report was generated using voice recognition software. It may contain grammatical, syntax or spelling errors. Electronically signed by: Zachary Lizarraga M.D. 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) I69.393 Spinal stenosis of lumbar region without neurogenic claudication M48.061 Neurogenic claudication status: without neurogenic claudication Fall from standing W19.XXXA Hyperlipidemia E78.5 Essential hypertension I10 Hypertension type: essential hypertension (1) Open fracture of right wrist Encounter type: initial encounter Qualified Code(s): S62.101B - Fracture of unspecified carpal bone, right wrist, initial encounter for open fracture (3) Lumbar spinal stenosis Neurogenic claudication status: without neurogenic claudication Qualified Code(s): M48.061 - Spinal stenosis, lumbar region without neurogenic claudication (6) Hypertension Hypertension type: essential hypertension Qualified Code(s): I10 - Essential (primary) hypertension
[2024-05-27 10:10] LABS: Mean Corpuscular Hemoglobin 28.5 pg (25.0-34.0); Mean Corpuscular Hgb Conc 33.3 g/dL (32.0-36.0); Mean Corpuscular Volume 85.5 fL (80.0-100.0); Mean Platelet Volume 10.6 fL (9.4-12.4); Platelet Count 275 K/uL (130-400); RDW Coefficient of Variation 15.1 % (11.5-14.5); RDW Standard Deviation 47.4 fL (36.4-46.3); Red Blood Count 4.56 M/uL (4.20-5.40); White Blood Count 13.16 K/ul (4.8-10.8)
[2024-05-27 10:31] LABS: Calcium 9.5 mg/dl (8.6-10.3); Potassium 4.2 mmol/L (3.5-5.1)
[2024-05-27 10:37] LABS: BUN Creatinine Ratio 19.7 (10-20); Creatinine Clr Calc Pharmacy 66.3 ml/min
--- NOTE | 2024-05-27 11:33 | Orthopedic Progress Note ---
Date of Service May 27, 2024 Assessment & Plan (1) Fracture of radius, distal, right, open: Plan: POD 1: Status post I&D, ORIF right distal radius open fracture grade I, ORIF Distal Ulna fracture open grade I, with Dr. Avila May be out of bed as tolerated. Nonweightbearing right wrist. Keep splint and dressings on at all times. Plan for dressing change on . Sling right upper extremity for comfort. Ice and elevate right upper extremity as needed for pain and swelling. Continue IV antibiotics x for 48 hours. Pain medication as needed/prescribed. Continue regular diet. Home medications resumed. Continue care per primary service. Findings discussed with son. Dr. Avila present for today's visit. Will continue to follow. If incisions & wounds of the wrist looks okay tomorrow may be able to be discharged to home. Will arrange follow-up as an outpatient in our clinic in approximately 1 week for dressing change and wound check. Patient understands and agrees with the plan. All questions were answered today. Admission and Anticipated Discharge Date Admission Date: May 26, 2024 Supervising Physician Co-Signing Physician Notes I, Dr. Avila, saw and examined the patient with my PA and agree with the above findings and plan o f care, I developed. Subjective Lily is sitting up in a chair. Doing well. No complaints of pain in her right wrist. Occasional discomfort when she moves her fingers. She was not sure if she should move her fingers or not. The sling is in place. She has been up ambulating in the room and overall doing well. Tolerating a regular diet. Denies any lightheadedness, dizziness, nausea or vomiting. Feels that she would be able to go home today but understands that she needs to stay for another days worth of IV antibiotics. Physical Exam Musculoskeletal: Exam focused on her right upper extremity: Postoperative splint and dressings are clean, dry and intact. Sensation is normal throughout the right hand. She is able to actively wiggle her fingers. Capillary fill is brisk. Nontender at the right shoulder. No significant edema noted. Sling is on right upper extremity. Results & Data Vital Signs (Past 12 Hours) Vital Signs Temp Pulse Pulse Resp BP Pulse Ox O2 Del Method 05/27/24 07:09 36.8 C 85 16 116/71 96 Room Air 05/27/24 04:47 36.8 C 92 H 12 148/75 H 94 Room Air 05/26/24 23:43 36.8 C 91 H 12 154/76 H 98 Room Air Laboratory Results 05/27/24 Range/Units 09:26 WBC 13.16 H (4.8-10.8) K/ul RBC 4.56 (4.20-5.40) M/uL Hgb 13.0 (12.0-16.0) g/dl Hct 39.0 (37.0-47.0) % MCV 85.5 (80.0-100.0) fL MCH 28.5 (25.0-34.0) pg MCHC 33.3 (32.0-36.0) g/dL RDW Std Deviation 47.4 H (36.4-46.3) fL RDW Coeff of Scarlet 15.1 H (11.5-14.5) % Plt Count 275 (130-400) K/uL MPV 10.6 (9.4-12.4) fL Sodium 139 (136-145) mmol/L Potassium 4.2 (3.5-5.1) mmol/L Chloride 104 (98-107) mmol/L Carbon Dioxide 29 (21-32) mmol/L Anion Gap 6 (3-11) BUN 13 (6-23) mg/dl Creatinine 0.66 (0.6-1.2) mg/dl Est Cr Clr Drug Dosing 66.3 ml/min eGFR 87.53 BUN/Creatinine Ratio 19.7 (10-20) Glucose 152 H (70-99(Fasting)) mg/dl Calcium 9.5 (8.6-10.3) mg/dl Magnesium 2.0 (1.7-2.4) mg/dl 25-OH Vitamin D Total 35.9 (30-100) ng/ml Diagnostic Findings 05/27/24 Range/Units 09:26 WBC 13.16 H (4.8-10.8) K/ul RBC 4.56 (4.20-5.40) M/uL Hgb 13.0 (12.0-16.0) g/dl Hct 39.0 (37.0-47.0) % MCV 85.5 (80.0-100.0) fL MCH 28.5 (25.0-34.0) pg MCHC 33.3 (32.0-36.0) g/dL RDW Std Deviation 47.4 H (36.4-46.3) fL RDW Coeff of Scarlet 15.1 H (11.5-14.5) % Plt Count 275 (130-400) K/uL MPV 10.6 (9.4-12.4) fL Sodium 139 (136-145) mmol/L Potassium 4.2 (3.5-5.1) mmol/L Chloride 104 (98-107) mmol/L Carbon Dioxide 29 (21-32) mmol/L Anion Gap 6 (3-11) BUN 13 (6-23) mg/dl Creatinine 0.66 (0.6-1.2) mg/dl Est Cr Clr Drug Dosing 66.3 ml/min eGFR 87.53 BUN/Creatinine Ratio 19.7 (10-20) Glucose 152 H (70-99(Fasting)) mg/dl Calcium 9.5 (8.6-10.3) mg/dl Magnesium 2.0 (1.7-2.4) mg/dl 25-OH Vitamin D Total 35.9 (30-100) ng/ml (1) Fracture of radius, distal, right, open Encounter type: initial encounter Fracture morphology: Colles' Open fracture type: open type I or II Qualified Code(s): S52.531B - Colles' fracture of right radius, initial encounter for open fracture type I or II
[2024-05-27] MEDS: ACETAMINOPHEN 500 MG TAB PO SCH (11:34)
[2024-05-27] MEDS: traMADol HCL 50 MG TABLET PO STA (11:34)
[2024-05-27] MEDS: DOCUSATE SODIUM 100 MG CAP PO SCH (11:34)
[2024-05-27] MEDS: POLYETHYLENE (MIRALAX) 17 GM PACK PO SCH (11:35)
[2024-05-27] MEDS: SENNA 8.6 MG TAB PO SCH (21:33)
[2024-05-28 07:40] LABS: Hemoglobin 11.4 g/dl (12.0-16.0); Mean Corpuscular Hemoglobin 27.5 pg (25.0-34.0); Mean Corpuscular Hgb Conc 32.6 g/dL (32.0-36.0); Mean Corpuscular Volume 84.5 fL (80.0-100.0); Mean Platelet Volume 10.2 fL (9.4-12.4); Platelet Count 233 K/uL (130-400); RDW Coefficient of Variation 15.1 % (11.5-14.5); RDW Standard Deviation 46.5 fL (36.4-46.3); Red Blood Count 4.14 M/uL (4.20-5.40); White Blood Count 9.26 K/ul (4.8-10.8)
[2024-05-28 08:04] LABS: Calcium 8.7 mg/dl (8.6-10.3); Potassium 3.9 mmol/L (3.5-5.1)
[2024-05-28 08:09] LABS: BUN Creatinine Ratio 13.8 (10-20); Creatinine Clr Calc Pharmacy 75.4 ml/min
--- NOTE | 2024-05-28 08:10 | Hospitalist Progress Note ---
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 CT head negative for acute CVA. #Open fracture RIGHT Wrist Orthopedics consulted, Dr Avila s/p Incision and Debridement of Right Wrist, Open Reduction Internal Fixation of Distal Radius 2-part intra-articular, and Ulna(Right) on 05/26. EBL 20cc Ancef brittany-operative abx through this morning, per discussion w/ Juan Manuel from orthopedics, wanting 14 days PO abx for open fx w/ Keflex 500mg BID which has been ordered to start today (should be off her Urex while on abx) UA w/o bacteria but cx pending and should be covered based on prior WBC normalized, afebrile. Did get steroids w/ surgery to note Hgb stable 15--> 13 -> 11.4, acute blood loss/dilutional aspect from surgery suspected. No CP/SOB, BP 173/75 Pain control: tylenol made 1gm q8h scheduled for baseline. tramadol 50mg q4h (increase if needed). Toradol 10mg IV x 1. Will place on pepcid BID for GI proph Bowel regimen: colace BID, miralax, senna. monitor for constipation given reported been couple days. +BS/passing gas Vit D acceptable 35.9, can continue usual PO supplementation PT/OT rec rehab-- [facility] referral sent and hopefully has bed open 05/29 and can plan for dc. Will need outpt ortho f/u. Continue abx at dc #CVA/HTN Hx of such, on aspirin/plavix at baseline and have been resumed for today. Remains on statin BP stable in setting of pain control and remains on Diltiazem Monitor #Recurrent urinary tract infections patient previously on with Anamine initial urinary screen is negative and covered w/ ancef above. no sx at this time but will monitor cx and continues on keflex as above. 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 Pepcid for GI proph w/ toradol x 1 and DAPT at baseline Dispo: continued inpatient stay and planning for [facility] 05/29 if bed available. CM to f/u about issues w/ going to [facility] w/ family on Saturday per patient as causes distress. Admission and Anticipated Discharge Date Admission Date: May 26, 2024 Supervising Physician Co-Signing Physician Notes The patient was not seen by me. The chart was reviewed. Case discussed with CARMEN Rainey. Agree with assessment and plan Subjective Eval this afternoon, doing alright except pain/swelling to her hand/wrist. Dressing changed by orthopedics today. RN to administer tylenol/tramadol at present time, discussed toradol/NSAIDs. She reports she "loved" advil but when she had CVA and on DAPT told not to use anymore. Discussed will touch base w/ supervising provider but suspect benefit one time toradol for pain/swelling and will order if appropriate. [facility] planned, however upset about maybe not being able to go to [facility] w/ family -- will touch base w/ CM to see about if able to allow to leave for [place]. Cm to f/u -- liason to talk to patient about such per CM. Physical Exam 2 Physical Exam: 84yo female sitting up in chair, report ing pain to her right hand/wrist, RN to administer medication HEENT: head atraumatic, normocephalic, mmm MSK/Neuro:Sling in place to RUE, fingers mobile, +edema/swelling, no erythema/cellulitis, dressing c/d/i, cap refill wnl and sensation intact Resp: even/unlabored, no wheezing/rales, on room air CV: RRR, no significant m/r/g, no pitting edema GI: +BS, slight distension but nontender, no guarding/rebound Psych: alert to person/place/time, cooperative but upset/anxious about easter plans Results & Data Results & Data Vital Signs (Past 12 Hours) Vital Signs Temp Pulse Resp BP Pulse Ox O2 Del Method 05/28/24 07:43 37.0 C 78 16 173/75 H 94 Room Air 05/28/24 01:31 151/66 H 05/27/24 20:29 36.7 C 90 12 181/93 H 95 Room Air Laboratory Results 05/28/24 07:18 05/28/24 07:18 PG Care Time/CCT Total # of Minutes Spent Total Time Spent with Patient: Total time spent is greater than 50% in coordination of care (as documented) at patient's floor/unit and/or counseling patient: Coding Level of Care Code 37579 SUB INP/OBS CARE 3/50MIN Diagnoses Open fracture of right wrist S62.101B Encounter type: initial encounter 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) I69.393 Spinal stenosis of lumbar region without neurogenic claudication M48.061 Neurogenic claudication status: without neurogenic claudication Fall from standing W19.XXXA Hyperlipidemia E78.5 Essential hypertension I10 Hypertension type: essential hypertension (1) Open fracture of right wrist Encounter type: initial encounter Qualified Code(s): S62.101B - Fracture of unspecified carpal bone, right wrist, initial encounter for open fracture (3) Lumbar spinal stenosis Neurogenic claudication status: without neurogenic claudication Qualified Code(s): M48.061 - Spinal stenosis, lumbar region without neurogenic claudication (6) Hypertension Hypertension type: essential hypertension Qualified Code(s): I10 - Essential (primary) hypertension
[2024-05-28] MEDS: ASPIRIN 81 MG ECTAB PO SCH (08:14)
[2024-05-28] MEDS: CLOPIDOGREL BISULFATE 75 MG TAB PO SCH (08:15)
--- NOTE | 2024-05-28 10:59 | Orthopedic Progress Note ---
Date of Service May 28, 2024 Assessment & Plan (1) Fracture of radius, distal, right, open: Plan: POD 2: Status post I&D, ORIF right distal radius open fracture grade I, ORIF Distal Ulna fracture open grade I, with Dr. Avila May be out of bed as tolerated. Nonweightbearing right wrist. Keep splint and dressings on at all times. Sling right upper extremity for comfort. Ice and elevate right upper extremity as needed for pain and swelling. She has completed her 6 doses of IV antibiotics. She will be transitioned to Keflex 500 mg 3 times daily x 2 weeks for prophylaxis. Continue regular diet. Home medications resumed. Continue care per primary service. Will continue to follow. If incisions & wounds of the wrist looks okay tomorrow may be able to be discharged to [facility]. Will arrange follow-up as an outpatient in our clinic in approximately 1 week for dressing change and wound check. Patient understands the plan. All questions were answered today. Admission and Anticipated Discharge Date Admission Date: May 26, 2024 Subjective This 84-year-old female is seen today in her room. She is sitting in her bedside chair. She states her right wrist is causing her significant pain. She took some oxycodone last night, but states that did not help much. She was up numerous times throughout the night with wrist pain. She denies any numbness or tingling. She does not like the sling. She states her elbow hurts. She would like to go home but acknowledges that she will require care at [facility]. She is overall unhappy this morning. Denies any lightheadedness, dizziness, nausea or vomiting. Physical Exam Physical Exam: General: Well-developed, well-nourished, elderly white female, in no acute distress. Sitting in a bedside chair. Alert and conversive. Skin: Warm and dry with good turgor. Postsurgical splint is in place on her right forearm. Upon removal, there is dried blood on the dressings. No active bleeding. Healing surgical incisions are present over the radial and ulnar borders of the wrist. Sutures are in place. Wound edges are well-approximated. No erythema or warmth. No drainage. Musculoskeletal: The patient has limited motion of her elbow, wrist, and digits secondary to pain or fear of pain. There is intact thumb circumduction as well as flexion and extension of the digits. Neurologic: Gross sensation is intact grossly to the digits of the right hand by soft touch. Peripheral pulses are 2+. She notes some decreased subjective sensation across the pad of her thumb. Results & Data Vital Signs (Past 12 Hours) Vital Signs Temp Pulse Resp BP Pulse Ox O2 Del Method 05/28/24 07:43 37.0 C 78 16 173/75 H 94 Room Air 05/28/24 01:31 151/66 H Laboratory Results CBC obtained this morning shows a white count of 9.26. H&H of 11.4 and 35.0. Platelets are normal at 233,000. (1) Fracture of radius, distal, right, open Encounter type: initial encounter Fracture morphology: Colles' Open fracture type: open type I or II Qualified Code(s): S52.531B - Colles' fracture of right radius, initial encounter for open fracture type I or II
[2024-05-28] MEDS: cephALEXin 500 MG CAP PO SCH (12:14)
[2024-05-28] MEDS: KETOROLAC TROMETHAMINE 15 MG/ML VIAL IV ONE (12:36)
[2024-05-28] MEDS: FAMOTIDINE 10 MG TABLET PO SCH (13:47)
[2024-05-29] MEDS ORDERED: bisacodyL 10 MG SUPP PR PRN (07:41)
[2024-05-29 07:58] VITALS: RESP 16
[2024-05-29] MEDS: MAGNESIUM HYDROXIDE SUSP 30 ML UDC PO PRN (08:54)
[2024-05-29 09:30] LABS: Hematocrit (blood only) 33.1 % (37.0-47.0); Mean Corpuscular Hgb Conc 33.2 g/dL (32.0-36.0); Mean Corpuscular Volume 84.2 fL (80.0-100.0); Mean Platelet Volume 10.5 fL (9.4-12.4); Platelet Count 217 K/uL (130-400); RDW Coefficient of Variation 14.8 % (11.5-14.5); RDW Standard Deviation 45.5 fL (36.4-46.3); Red Blood Count 3.93 M/uL (4.20-5.40); White Blood Count 6.44 K/ul (4.8-10.8)
[2024-05-29 09:48] LABS: BUN Creatinine Ratio 19.4 (10-20); Creatinine Clr Calc Pharmacy 70.6 ml/min; Potassium 3.8 mmol/L (3.5-5.1)
--- NOTE | 2024-05-29 10:22 | Discharge Summary ---
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 CT head negative for acute CVA. #Open fracture RIGHT Wrist Orthopedics consulted, Dr Avila--> s/p Incision and Debridement of Right Wrist, Open Reduction Internal Fixation of Distal Radius 2-part intra-articular, and Ulna(Right) on 05/26. EBL 20cc Ancef brittany-operative, transition to Keflex 500mg twice daily for additional 14 days (started 05/28) Ancef brittany-operative abx through this morning, per discussion w/ Juan Manuel from orthopedics, wanting 14 days PO abx for open fx w/ Keflex 500mg BID which has been ordered to start today (should be off her Urex while on abx) UA w/o bacteria, UC negative. CBC hgb 11.0 on 05/29 --> monitor outpatient, secondary to blood loss from surgery. Continue Scheduled Tylenol 1000mg every 8 hours, use Tramadol 50mg prn q4h Patient w/ post op constipation --> Miralax BID on discharge until patient produces BM's. Patient nauseous 05/29 secondary to constipation, s/p 4mg PO Zofran w/ improvement Vit D acceptable 35.9, can continue usual PO supplementation PT/OT rec rehab-- [facility] #CVA/HTN Hx of such, on aspirin/plavix at baseline and have been resumed for today. Remains on statin BP stable in setting of pain control and remains on Diltiazem #Recurrent urinary tract infections patient previously on with Anamine initial urinary screen is negative and covered w/ ancef above. no sx at this time but will monitor cx and continues on keflex as above. 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 Admission HPI Per Admitting Provider 84-year-old female presents to the emergency department after falling on outstretched hands. Patient with history of previous stroke and ataxia. She also has neuropathy in her legs. She fell backwards sustaining an open fracture of her wrist taken to the operating room. Patient has a history of chronic recurrent urinary tract infections and takes preventative methAnamine. She takes aspirin atorvastatin Plavix and diltiazem for cardiovascular risk reduction. Discharge Exam Constitutional WD/WN, vitals as above Eyes PERRL, conjunctivae normal, anicteric sclerae Respiratory breathing unlabored Cardiovascular well perfused Neurologic PERRL, EOMI, accommodation nl, no face palsy, no dysarthria Psychiatric A+Ox3, euthymic affect Discharge Plan Discharge Items Patient Disposition: Transfer Inpatient Rehab Fac Reason For Visit: RIGHT WRIST S/P ORIF OPEN FRACTURE Discharge Diagnosis: R wrist fracture Goals: You have been hospitalized for an urgent problem which required surgery. During your stay at [facility], we have made an effort to correct the problem that brought you to the hospital while keeping you as comfortable as possible. Surgery and medications were used to bring your condition under control and your discharge instructions will include directions for any medications you should take after leaving the hospital. Please make sure to follow the advice of your surgeon regarding follow up with the surgeon and with your primary care provider. Activity: As commented below Activity Comment: non weight bearing right wrist, splint at all times, sling for comfort Non-emergency contact: Primary Care Provider and Surgeon Call non-emergency contact if: you have any medication questions, your symptoms worsen, your pain is not controlled, your pain is worsening and your pain is unusual for you Follow-up/Referrals: Pro,Andres Villagran MD [Primary Care Provider] - Gladis Bey PA-C [Physician Automatic Thread Winder] - 06/03/24 1:00 pm Diet: Heart Healthy Addtl Attending Provider Instructions: You have been hospitalized for a fall and found to have fracture to your RIGHT wrist. Orthopedics, Dr Avila, was consulted and you went to the OR for surgery to address this and should remain in splint until follow up. NO weight bearing to the right wrist for now. Continue sling for comfort and can continue ice and gentle range of motion to the fingers as tolerated as well as to the shoulder/elbow/ You should continue KEFLEX for antibiotic 500mg twice daily per orthopedics given open fracture and should cover for urine. Hold your urex while on antibiotics. You can continue pain control with tylenol 1gm three times daily and tramadol 50mg as needed. Please continue bowel regimen while on pain medications and increase if needed if having any issues with this. - Recommend Miralax twice daily until effectively producing bowel movements. Following this you may titrate down your dose. Please use Zofran as needed for nausea or vomiting. Therapy evaluations were undertaken and recommend REHAB. [facility] has been arranged. Please follow up with primary care in 7-10 days after hospitalization. Please follow up with orthopedics as arranged to check your status after surgery. Please return to the ER with any fever/chills, uncontrolled or worsening pain or for any redness/drainage or other symptoms concerning for you. It has been a pleasure being a part of the medical team providing for you while you have been in the hospital. Take care! Addtl Assembler Skylights Provider Instructions: Orthopedic instructions: -take Keflex 500mg 3x day x 14 days due to the open fracture -Sling right upper extremity as needed for comfort. May use when up and ambulating but may remove when in bed. - Ice to right hand and wrist as needed for pain and swelling. -May do full range of motion of fingers as tolerated. -Elevate right upper extremity as needed for pain and swelling. - May do full range of motion of shoulder and elbow as tolerated. - Pain medication as needed/prescribed. -Keep incision covered. Keep splint on at all times. - Follow-up with [facility] orthopedics as scheduled. Call [phone] with that increased pain, swelling, fevers, chills, drainage, need to confirm or reschedule appointment. Pending Studies at Discharge: No Stand-Alone Forms: My [facility] mth sense Skilled Items Patient informed of condition?: Yes DNR: No Discharge Level of Care: Acute rehab Communicable Disease: No Discharge Prognosis: Improving Lines: None Urinary Catheter: No Medications and DC Order Prescriptions: New cephalexin 500 mg Capsule 500 mg PO BID 13 Days Qty: 26 0RF acetaminophen [Tylenol Extra Strength] 500 mg Tablet 1,000 mg PO Q8H Qty: 0 0RF polyethylene glycol 3350 [Miralax] 17 gram Powder In Packet 17 g PO DAILY Qty: 14 0RF famotidine [Acid Preschool Principal (famotidine)] 10 mg Tablet 10 mg PO BID Qty: 14 0RF sennosides [Senokot] 8.6 mg Tablet 8.6 mg PO HS Qty: 14 0RF tramadol 50 mg Tablet 50 mg PO Q4H PRN (Reason: pain) Qty: 20 0RF polyethylene glycol 3350 [Miralax] 17 gram/dose powder 17 g PO BID Qty: 238 0RF ondansetron 4 mg tablet,disintegrating 4 mg PO Q6H PRN (Reason: nausea and vomiting) Qty: 30 0RF Continued magnesium 200 mg tablet 200 mg PO DAILY albuterol sulfate 90 mcg/actuation HFA aerosol inhaler 2 puff inhalation Q6H PRN (Reason: shortness of breath or wheezing) Qty: 18 1RF tolterodine 4 mg capsule,extended release 24hr 4 mg PO DAILY Qty: 90 3RF clopidogrel [Plavix] 75 mg tablet 75 mg PO DAILY Qty: 90 1RF diltiazem HCl 120 mg capsule,extended release 12 hr 120 mg PO DAILY Qty: 90 1RF atorvastatin 80 mg tablet 80 mg PO DAILY Qty: 90 0RF estradiol [Estrace] 0.01 % (0.1 mg/gram) cream 1 g vaginal 2XWK Qty: 42.5 0RF Rx Instructions: Apply a pea-sized amount to vaginal opening two times per week gabapentin 100 mg capsule 100 mg PO TID Qty: 90 2RF aspirin 81 mg tablet,delayed release (DR/EC) 81 mg PO DAILY cholecalciferol (vitamin D3) [Vitamin D3] 25 mcg (1,000 unit) Tablet 25 mcg PO QAM multivitamin Tablet 1 tab PO QAM azelastine 137 mcg (0.1 %) aerosol,spray 2 spray INTRANASAL DAILY amoxicillin 500 mg capsule 2,000 mg PO UD PRN (Reason: dental appointment) Rx Instructions: not on faxed medication list, unable to verify cyclobenzaprine 5 mg tablet 5 mg PO TID PRN (Reason: Muscle Spasm) Held methenamine hippurate 1 gram tablet 1 g PO UD Hold Instructions: hold while on Keflex and can resume once completed Rx Instructions: 1 g po bid. Listed on faxed medication list, last filled 01/16 90 day supply nitrofurantoin macrocrystal 50 mg capsule 50 mg PO UD Hold Instructions: hold while on Keflex, can resume once completed Rx Instructions: 05/26- Not on faxed list. last filled 03/11 90 day supply; 50 mg po hs Take one capsule daily at bedtime. Discontinued tavaborole 5 % Solution With Applicator 1 applic TOPICAL DAILY Discharge Orders: Discharge Order (Routine); Ordered 05/29/24 Ordered By: Rody Connelly Admission Data Admit Date/Time: 05/26/24 19:24 Attending Provider: Kosta Power Admit Provider: Freeman Avila Primary Care Provider: Andres Garcia Other Providers: Freeman Avila; [facility] Other Interventions: Discharge Summary Assessment (RN) Last Done: 05/29/24 11:09 Hospital Stay Data Consultations 05/26/24 14:09 Consult Orthopedic Surgery Stat Procedures Performed Operation Date: 05/26/24 13:40 Actual Procedures p Open Reduction Internal Fixation of Distal Radius and Ulna(Right) - Freeman Avila MD s Incision and Debridement of Right Wrist,(Right) - Freeman Avila MD Diagnostic Imagining Performed 05/26/24 FL wrist RT 2V Routine 05/26/24 09:03 CT cervical spine wo con Stat CT head/brain wo con Stat Pending Results Patient Have Any Pending Studies at Discharge: No Discharge Instructions Given to Patient (Per Discharging Provider) You have been hospitalized for a fall and found to have fracture to your RIGHT wrist. Orthopedics, Dr Avila, was consulted and you went to the OR for surgery to address this and should remain in splint until follow up. NO weight bearing to the right wrist for now. Continue sling for comfort and can continue ice and gentle range of motion to the fingers as tolerated as well as to the shoulder/elbow/ You should continue KEFLEX for antibiotic 500mg twice daily per orthopedics given open fracture and should cover for urine. Hold your urex while on antibiotics. You can continue pain control with tylenol 1gm three times daily and tramadol 50mg as needed. Please continue bowel regimen while on pain medications and increase if needed if having any issues with this. - Recommend Miralax twice daily until effectively producing bowel movements. Following this you may titrate down your dose. Please use Zofran as needed for nausea or vomiting. Therapy evaluations were undertaken and recommend REHAB. [facility] has been arranged. Please follow up with primary care in 7-10 days after hospitalization. Please follow up with orthopedics as arranged to check your status after surgery. Please return to the ER with any fever/chills, uncontrolled or worsening pain or for any redness/drainage or other symptoms concerning for you. It has been a pleasure being a part of the medical team providing for you while you have been in the hospital. Take care! Supervising Physician Co-Signing Physician Notes The patient was not seen by me. The chart was reviewed. Case discussed with CARMEN Rainey. 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
[2024-05-29] MEDS: ONDANSETRON 4 MG OD TAB PO STA (10:34)
[2024-05-29 11:00] VITALS: BP 150/68; PULSE 76; TEMP 97.7; O2SAT 95
--- NOTE | 2024-05-29 11:03 | Orthopedic Progress Note ---
Date of Service May 29, 2024 Assessment & Plan (1) Fracture of radius, distal, right, open: Plan: POD 3: Status post I&D, ORIF right distal radius open fracture grade I, ORIF Distal Ulna fracture open grade I, with Dr. Avila May be out of bed as tolerated. Nonweightbearing right wrist. Keep splint and dressings on at all times. Sling right upper extremity for comfort. Ice and elevate right upper extremity as needed for pain and swelling. She has completed her 6 doses of IV antibiotics. She will be transitioned to Keflex 500 mg 3 times daily x 2 weeks for prophylaxis. Continue regular diet. Home medications resumed. Patient states she is being transferred to [facility] for rehab later today. Will arrange follow-up as an outpatient in our clinic in approximately 1 week for dressing change and wound check. Patient understands the plan. All questions were answered today. Admission and Anticipated Discharge Date Admission Date: May 26, 2024 Subjective This 84-year-old female is seen today in her room. She is 3 days status post right wrist open reduction internal fixation with irrigation debridement. Patient very pleasant this morning. She feels that the oxycodone has been more effective but does make her loopy. I adjusted her sling and showed her how to use the thumb strap to prevent it from sliding. Currently she denies chest pain, shortness of breath, fever, chills, sweats, nausea, vomiting, diarrhea, difficulty voiding or numbness or tingling in her right upper extremity. Review of Systems Review of Systems: All systems reviewed & are unremarkable except as noted in Subjective Physical Exam Physical Exam: Right upper extremity: Dressing and splint are clean dry and intact and left in place. Patient states that he feels fairly fairly comfortable. She does have visible edema in digits 2 through 5. She is able to perform pincer grasp and thumb and index finger and resist traction she has some referred pain to the wrist with resisted extension at the IP and MCP joint of her thumb. She is able to resist compression of the digits 2 through 5. She is able to detect light sensation to touch over the pads of all digits. She has full range of motion of her elbow. Her capillary fill is less than 2 seconds. Results & Data Vital Signs (Past 12 Hours) Vital Signs Temp Pulse Resp BP Pulse Ox O2 Del Method 05/29/24 08:10 68 133/72 97 Room Air 05/29/24 07:58 36.4 C L 77 16 123/54 L 96 Room Air Diagnostic Findings Laboratory Results WBC 6.44 K/ul (4.8-10.8) 05/29/24 08:41 RBC 3.93 M/uL (4.20-5.40) L 05/29/24 08:41 Hgb 11.0 g/dl (12.0-16.0) L 05/29/24 08:41 Hct 33.1 % (37.0-47.0) L 05/29/24 08:41 MCV 84.2 fL (80.0-100.0) 05/29/24 08:41 MCH 28.0 pg (25.0-34.0) 05/29/24 08:41 MCHC 33.2 g/dL (32.0-36.0) 05/29/24 08:41 RDW Std Deviation 45.5 fL (36.4-46.3) 05/29/24 08:41 RDW Coeff of Scarlet 14.8 % (11.5-14.5) H 05/29/24 08:41 Plt Count 217 K/uL (130-400) 05/29/24 08:41 MPV 10.5 fL (9.4-12.4) 05/29/24 08:41 Immature Gran % (Auto) 0.7 % 05/26/24 09:18 Neut % (Auto) 63.0 % 05/26/24 09:18 Lymph % (Auto) 22.5 % 05/26/24 09:18 Hopkins % (Auto) 8.8 % 05/26/24 09:18 Eos % (Auto) 4.1 % 05/26/24 09:18 Baso % (Auto) 0.9 % 05/26/24 09:18 Neut # (Auto) 3.52 K/uL (1.40-6.50) 05/26/24 09:18 Lymph # (Auto) 1.26 K/uL (1.20-3.40) 05/26/24 09:18 Hopkins # (Auto) 0.49 K/uL (0.11-0.59) 05/26/24 09:18 Eos # (Auto) 0.23 K/uL (0.00-0.50) 05/26/24 09:18 Baso # (Auto) 0.05 K/uL (0.00-0.20) 05/26/24 09:18 Immature Gran # (Auto) 0.04 K/uL (0.01-0.20) 05/26/24 09:18 Sodium 129 mmol/L (136-145) L 05/29/24 08:41 Potassium 3.8 mmol/L (3.5-5.1) 05/29/24 08:41 Chloride 96 mmol/L (98-107) L 05/29/24 08:41 Carbon Dioxide 30 mmol/L (21-32) 05/29/24 08:41 Anion Gap 3 (3-11) 05/29/24 08:41 BUN 12 mg/dl (6-23) 05/29/24 08:41 Creatinine 0.62 mg/dl (0.6-1.2) 05/29/24 08:41 Est Cr Clr Drug Dosing 70.6 ml/min 05/29/24 08:41 eGFR 88.86 05/29/24 08:41 BUN/Creatinine Ratio 19.4 (10-20) 05/29/24 08:41 Glucose 104 mg/dl (70-99(Fasting)) H 05/29/24 08:41 Calcium 9.0 mg/dl (8.6-10.3) 05/29/24 08:41 Magnesium 2.0 mg/dl (1.7-2.4) 05/27/24 09:26 Total Bilirubin 0.7 mg/dl (0.2-1.0) 05/26/24 09:18 AST 23 U/L (13-39) 05/26/24 09:18 ALT 20 U/L (7-52) 05/26/24 09:18 Alkaline Phosphatase 89 U/L (34-104) 05/26/24 09:18 Total Protein 7.3 gm/dl (6.0-8.3) 05/26/24 09:18 Albumin 4.2 gm/dl (3.4-5.0) 05/26/24 09:18 Globulin 3.1 gm/dl (2.5-4.0) 05/26/24 09:18 Albumin/Globulin Ratio 1.4 (0.9-2) 05/26/24 09:18 Lipase 36 U/L (11-82) 05/26/24 09:18 25-OH Vitamin D Total 35.9 ng/ml (30-100) 05/27/24 09:26 Urine Color Yellow 05/26/24 Unknown Urine Appearance Slightly Cloudy (Clear) 05/26/24 Unknown Urine pH 8.0 (4.5-7.5) H 05/26/24 Unknown Ur Specific Br[place]ett 1.015 (1.000-1.030) 05/26/24 Unknown Urine Protein Negative (Negative) 05/26/24 Unknown Urine Glucose (UA) Negative (Negative) 05/26/24 Unknown Urine Ketones Negative (Negative) 05/26/24 Unknown Urine Blood Negative (Negative) 05/26/24 Unknown Urine Nitrite Negative (Negative) 05/26/24 Unknown Urine Bilirubin Negative (Negative) 05/26/24 Unknown Urine Urobilinogen Negative (Negative) 05/26/24 Unknown Ur Leukocyte Esterase Negative (Negative) 05/26/24 Unknown Impressions Cervical Spine CT 05/26/24 09:03 CT cervical spine wo con CT DOSE: 1161.04 mGy.cm CLINICAL HISTORY: 84 years-old Female with fall. Acute neck injury status post fall COMPARISON: Head CT of same day, CT neck 12/25/2022 TECHNIQUE: Multiple axial CT images of the cervical spine were obtained without contrast. A dose lowering technique was utilized adhering to the principles of ALARA. FINDINGS: Straightening of the normal cervical lordosis. Multilevel moderate to severe degenerative changes of the cervical spine. 4 mm anterolisthesis C7 on T1 is likely secondary to the chronic severe facet arthrosis. No acute fracture or subluxation identified. There is severe degeneration of the temporal mandibular joints. The cervical soft tissues appear unremarkable. The visualized lung apices appear clear. IMPRESSION: No acute cervical spine fracture or subluxation identified. ACT 112: Negative or not required by law. The above report was generated using voice recognition software. It may contain grammatical, syntax or spelling errors. Electronically signed by: Juan J Burton M.D. 05/26/2024 12:34 PM Hand X-Ray 05/26/24 09:03 XR wrist RT min 3V routine, XR hand RT min 3V routine CLINICAL HISTORY: r wrist pain COMPARISON: None FINDINGS: There are acute comminuted fractures distally at the radius and ulna with mild displacement and minimal apex anterior angulation. There is one half shaft width dorsal displacement of the distal radius fracture. No other acute fracture or dislocation seen at the right wrist or right hand. There are scattered degenerative changes without erosion. IMPRESSION: Acute fractures at the distal radius and ulna. ACT 112: Negative or not required by law. Electronically signed by: Zachary Lizarraga M.D. 05/26/2024 10:[address] 05/26/24 09:03 CT head/brain wo con CLINICAL HISTORY: fall. TECHNIQUE: Multiple axial CT images of the head were obtained without contrast. A dose lowering technique was utilized adhering to the principles of ALARA. CT DOSE: 1161 COMPARISON: 03/02/2024 FINDINGS: No intracranial hemorrhage seen. No mass effect, midline shift, or hydrocephalus. Stable mild chronic small vessel ischemic changes. Stable small focal hypodensity medial right temporal lobe, prominent perivascular space versus old infarction. Stable small hypodensity centrally in the upper jess, likely old infarction. Stable globus pallidus calcifications, unremarkable in this age group. No skull fracture seen. Visualized paranasal sinuses and mastoid air cells are clear. IMPRESSION: No acute findings. ACT 112: Negative or not required by law. The above report was generated using voice recognition software. It may contain grammatical, syntax or spelling errors. Electronically signed by: Zachary Lizarraga M.D. 05/26/2024 12:11 PM Wrist X-Ray 05/26/24 09:03 XR wrist RT min 3V routine, XR hand RT min 3V routine CLINICAL HISTORY: r wrist pain COMPARISON: None FINDINGS: There are acute comminuted fractures distally at the radius and ulna with mild displacement and minimal apex anterior angulation. There is one half shaft width dorsal displacement of the distal radius fracture. No other acute fracture or dislocation seen at the right wrist or right hand. There are scattered degenerative changes without erosion. IMPRESSION: Acute fractures at the distal radius and ulna. ACT 112: Negative or not required by law. Electronically signed by: Zachary Lizarraga M.D. 05/26/2024 10:26 AM (1) Fracture of radius, distal, right, open Encounter type: initial encounter Open fracture type: open type I or II Fracture morphology: Collecaio' Qualified Code(s): S52.531B - Colles' fracture of right radius, initial encounter for open fracture type I or II
--- NOTE | 2024-06-02 07:19 | Anesthesiology Progress Note ---
Date of Service June 02, 2024 Anesthesia Post Procedure Pain Intensity Right Wrist: Pain Intensity: 2 Transfer of Care Handoff Completed per policy Notes Mental Status: alert / awake / arousable and participated in evaluation Patient Amnestic to Procedure: Yes Nausea / Vomiting: adequately controlled Pain: adequately controlled Airway Patency, RR, SpO2: stable & adequate BP & HR: stable & adequate Hydration State: stable & adequate Anesthetic Complications: no major complications apparent and Pt Satisfied with anesthetic care
== END 2024-05-29 14:17 | DRG 512 ==
LOC: ED 08:46 → 3W 14:53 → SUATTDRO 19:24 → 3W 19:24